=== PATIENT | female | born 1950 | race Caucasian/White ===

== ENCOUNTER → 2023-12-23 09:50 | Outpatient (REF) | payer MEDICARE, OTHER, SELFPAY | LOC: DHVS 09:50 | PROVIDERS: ATTENDING PHYSICIAN Surgery Vascular Surgery; FAMILY PHYSICIAN Family Medicine | DX: I73.9 Peripheral vascular disease, unspecified (principal); I65.23 Occlusion and stenosis of bilateral carotid arteries | CPT/HCPCS: 93880; 93922; 93925 ==

== ENCOUNTER 2024-08-17 19:08 | Inpatient (IN) | payer MEDICARE, OTHER, SELFPAY ==
[2024-08-17] VITALS (7 sets, daily range): BP systolic 112–144; BP diastolic 59–84; BMI 17.4
--- NOTE | 2024-08-17 14:57 | ED.GENMED ---
History of Present Illness
General
Chief Complaint: Cardiac Symptoms
Time Seen by Provider: 08/17/24 14:57
History of Present Illness
History of Present Illness:
TIME OF INITIAL ENCOUNTER: 3 PM
HPI: The patient was sent here by her [facility] senior support analyst, Dr. Liang for evaluation of bypass with Dr. Crow or complex PCI with Dr. Liang. She had a shoulder x-ray a couple of months ago which showed a nodule for which a bronchoscopy was
recommended. The primary wanted her to have a cardiology evaluation before the bronchoscopy. 1 month ago she had coronary catheterization at [facility] with Dr. Durham where she was found to have significant coronary disease. She has been having
upper back tightness but not necessarily exertional in nature. She was given nitroglycerin last month when she had the cath and when she takes it for the upper back tightness the pain immediately goes away. She has not been having chest pain,
diaphoresis, or shortness of breath.
EXAM:
GENERAL: Well appearing in no distress
HEENT: Moist oral mucosa
CARDIOVASCULAR: No murmurs, normal heart rate, regular rhythm, No chest wall tenderness
PULMONARY: No respiratory distress, breath sounds are clear and equal
ABDOMEN: Soft with no peritoneal signs, no tenderness
NEUROLOGIC: Excellent strength all extremities, no coordination deficits
PSYCHIATRIC: Appropriate mental status, normal insight and judgement
EXTREMITIES: Nontender, no edema, moves all extremities equally
SKIN: No rash, no lesions
NUMBER AND COMPLEXITY OF PROBLEMS ADDRESSED AT THE ENCOUNTER
� Chronic conditions affecting care: High blood pressure, hypercholesterolemia, former smoker, family history of early coronary disease, peripheral artery disease
� Acute Exacerbation and/or Progression of Chronic Illness: This is an acute problem
� Differential Diagnosis includes: Progression of CAD, musculoskeletal back pain
AMOUNT AND/OR COMPLEXITY OF DATA TO BE REVIEWED AND ANALYZED
� I performed an independent evaluation of and my interpretation is:
EKG: Sinus 71, normal axis, T wave inversion is now slightly more prominent compared to EKG from 2020 now extending to V6
CT:
X-rays: Mild cardiomegaly noted on chest x-ray
Laboratory Studies: Hemoglobin 1.5, troponin 0.161
Other:
� Review of other/old records: I reviewed records. The patient was taken to the OR in [address] Conteh for severe debilitating right lower extremity claudication and was stented
� Clinical information was obtained by an independent historian: I spoke to the at bedside
� Prescriptions/Medications Considered but not given:
� Further testing considered but not performed:
RISK OF COMPLICATIONS AND/OR MORBIDITY OR MORTALITY OF PATIENT MANAGEMENT
� Social determinants of health affecting care: Lives at home
� Discussion with other providers: I discussed case with Dr. Liang. He recommends aspirin/heparin/Crow consult/DCA consult/echo.
� Escalation of care including admission/observation vs risk of discharge considered: Patient was sent here for admission by Dr. Liang to the hospitalist service due to diffuse CAD which will likely need either bypass or complex
PCI.
ANY OTHER UPDATES:
The patient has remained comfortable in the Emergency Department
Phy Exam
Physical Exam
Physical Exam:
See HPI
Course
Orders/Labs/Results
Orders:
Orders
08/17/24 Breakfast
Cholesterol Lowering
At Your Request: Full Participation
Cholesterol Lowering: Sodium, 2 Gram
08/17/24 14:36
Electrocardiogram (*1) Urgent
Reason for Study: Chest Pain
EKG- Treatment ONCE
08/17/24 15:09
CR Chest - 2 Views Urgent
Comment:
Reason For Exam: upper back pain; pre-CABG; nodule
08/17/24 15:50
Complete Blood Count/With Diff Urgent
Comprehensive Metabolic Panel Urgent
PTT Urgent
Prothrombin Time Urgent
Troponin I Urgent
08/17/24 17:28
Aspirin 325 mg PO NOW STA
Heparin 3,200 units IV NOW STA
08/17/24 17:[address] Non Medication Order As Directed
Physician Order: PTT 6 hours after initial start of Heparin infusion
Above order entered?: Yes
08/17/24 17:30
Heparin [id number] Units/250 ml 25,000 units in 250 ml IV PER PROTOCOL
Weight to be used for heparin protocol in kilograms (kg):: 52.6
Protocol:: Cardiac Tx/Acute Coronary
PTT Goal Range to be used:: PTT 73 to 111 seconds
Order type:: Initial
INITIAL Infusion Dose (UNITS/KG/hr) & then follow protocol:: 12 units/kg/hr
Infusion Dose in UNITS/hr & then follow protocol (UNITS/hr):: 650
INFUSION RATE in mL/hr & then follow protocol (mL/hr):: 6.5
PTT less than or equal to 64 seconds:: Increase rate by 200 units/hr (+ 2 mL/hr)
PTT 64.1 to 72.9 seconds:: Increase rate by 100 units/hr (+ 1 mL/hr)
PTT 73 to 111 seconds:: Target Range. No change in rate.
PTT 111.1 to 130.9 seconds:: Decrease rate by 100 units/hr (- 1 mL/hr)
PTT 131 to 199.9 seconds:: HOLD for 1 hr. Then decrease rate by 200 units/hr (- 2 mL/hr)
PTT greater than or equal to 200 seconds:: HOLD for 2 hrs & Notify Provider. Then decrease by 200 units/hr (-
2 mL/hr)
Lab follow-up:: Each change, PTT q6h until 2 consecutive are therapeutic. Then PTT
daily.
08/17/24 18:04
Heparin [id number] Units/250 ml 25,000 units in 250 ml .ROUTE .STK-MED
08/17/24 18:05
Admit/Transfer Patient As Directed
Co-Sign Provider:
Level of Care: Inpatient admission
Assign to:: IVU
Physician / Group: Tabatha
Diagnosis: CAD
Reason for Hospitalization: heparin drip, cardiac cath
Expected length of stay greater than two midnights?: Yes
ELOS- Estimated Length of Stay in days: 3
I certify the patient meets the requirements for IP care: Yes
PRN Pain Medication Management As Directed
May give lesser potent ordered pain med per pt: Yes
preference::
Protocol:: Medication orders for pain may be administered in a
manner that supports deferring to patient preference
when the pt is:
- Requesting an ordered lesser potent pain medication.
Least to most potent pain medications are defined
as: acetaminophen < NSAID < tramadol < opioids
(morphine, oxycodone, hydromorphone).
- Requesting a lesser dose of the same medication IF
ORDERED.
- Requesting a less intrusive route of administration
if both routes are prescribed by the provider (PO <
IV).
08/17/24 18:07
Code Status As Directed
Resuscitation Status: Full Code
08/17/24 21:34
Acetaminophen [Tylenol] 650 mg PO Q4HPRN PRN
Ondansetron Injectable [Zofran] 4 mg IV Q6HPRN PRN
08/17/24 21:34
ECHO 2D MMode Doppler w Definity [Echo 2D/M Color Dop w Definity] Routine
Reason for Exam: CAD with elevated troponin
CARDIOLOGY CONSULT Routine
Consulting Provider: Rob Bond
Was physician already notified: Yes
Heparin Protocol- PTT Orders As Directed
PTT per Heparin protocol: -Obtain CBC and baseline PTT - if not already collected.
-Obtain PTT 6 hours from start of infusion. Then, every 6 hours until 2 consecutive
PTT's are therapeutic. Then, PTT Daily.
-With each rate change, obtain PTT every 6 hours until 2 consecutive PTT's are
therapeutic. Then, PTT Daily.
Activity As Directed
Activity Level: Out of Bed-Early Mobility
With Assistance
Hemetest Stools As Directed
Comment: Notify Physician of any positive results; May Stop if Negative x 3
Notify MD As Directed
Notify physician if: PTT is greater than or equal to 200.
Obtain Records As Directed
Dates of Information to be Released: 2024
Type of Information Requested: ECG/Cardiology Results
If Other, list type of info requested: Cardiac Cath
Obtain Records from: [facility]
Vital Signs As Directed
Frequency: Per unit guidelines
Weight As Directed
Frequency: Daily
08/17/24 22:00
Troponin I Q6H
08/18/24 04:00
Troponin I Q6H
08/18/24 Breakfast
NPO
Allow oral meds: Yes
Allow clear liquids: 4hrs prior to procedure
NPO with Ice Chips: Yes
Comment: may have unrestricted clear liquid up to 4 hrs prior to scheduled procedure
Basic Metabolic Panel IN AM
Complete Blood Count/No Diff IN AM
Hgba1c [Glycohemoglobin (HgbA1c)] IN AM
Lipid Profile [Cardiovascular Evaluation] IN AM
Magnesium IN AM
Vitamin B12 IN AM
08/18/24 08:00
Aspirin Chewable [Low Strength Aspirin] 81 mg PO DAILY
ISOSORBIDE MONOnitrate ER [Imdur (Extended Release)] 30 mg PO DAILY
Metoprolol Xl [Toprol Xl] 100 mg PO DAILY
08/18/24 10:00
Troponin I Q6H
08/18/24 18:00
Atorvastatin [Lipitor] 20 mg PO QPM
08/19/24 06:00
Complete Blood Count/No Diff Q2D
Comment: notify provider: Platelet count < 130,000 or decrease by 50% from baseline
08/21/24 06:00
Complete Blood Count/No Diff Q2D
Comment: notify provider: Platelet count < 130,000 or decrease by 50% from baseline
08/23/24 06:00
Complete Blood Count/No Diff Q2D
Comment: notify provider: Platelet count < 130,000 or decrease by 50% from baseline
08/25/24 06:00
Complete Blood Count/No Diff Q2D
Comment: notify provider: Platelet count < 130,000 or decrease by 50% from baseline
08/27/24 06:00
Complete Blood Count/No Diff Q2D
Comment: notify provider: Platelet count < 130,000 or decrease by 50% from baseline
08/29/24 06:00
Complete Blood Count/No Diff Q2D
Comment: notify provider: Platelet count < 130,000 or decrease by 50% from baseline
08/31/24 06:00
Complete Blood Count/No Diff Q2D
Comment: notify provider: Platelet count < 130,000 or decrease by 50% from baseline
09/02/24 06:00
Complete Blood Count/No Diff Q2D
Comment: notify provider: Platelet count < 130,000 or decrease by 50% from baseline
Abnormal Lab Results
08/17/24
15:50
RBC 3.58 L 10^6/uL
(4.20-5.40)
Hgb 11.5 L g/dL
(12.0-16.0)
Hct 33.4 L %
(37.0-47.0)
MCH 32.1 H pg
(27.0-31.0)
MPV 11.3 H fL
(7.4-10.4)
Absolute Monos (auto) 0.7 H 10^3/uL
(0.1-0.6)
Glucose 112 H mg/dl
(70-99)
Troponin I 0.161 H* ng/ml
08/17/24 15:50
08/17/24 15:50
Vital Signs
Initial and Last Documented VS:
Initial Vital Signs
Temp Pulse Resp BP Pulse Ox
36.8 C 80 20 144/76 99
08/17/24 14:32 08/17/24 14:32 08/17/24 14:32 08/17/24 14:32 08/17/24 14:32
Last Documented Vital Signs
Temp Pulse Resp BP Pulse Ox
36.4 C 84 18 136/62 99
08/17/24 21:42 08/17/24 21:45 08/17/24 21:42 08/17/24 21:42 08/17/24 21:42
*Critical Care Note
Total Time (30-74mins, 75-104mins- exclusive of procedures): Not Applicable
ED Attending Note
-
Portions of this chart may have been created with voice recognition software.� Occasional wrong word or��sound alike� substitutions may have occurred due to the inherent limitations of voice recognition software.
Discharge Plan
Departure
Patient Disposition: Admit
Presentation/result/management discussed w/ accepting MD/DO: Hospitalist
Discharge Problem:
Acute coronary syndrome
Interventions
Interventions:
*Risk Screen - Suicide Last Done: 08/17/24 14:32
*General Assessment Last Done: 08/17/24 14:32
*Neglect/Abuse Screening Last Done: 08/17/24 14:32
*ED- Fall Risk Assessment Last Done: 08/17/24 18:18
*ED COVID-19 Vaccine History Last Done: 08/17/24 18:18
*Nursing Disposition Last Done: 08/17/24 21:39
ED- Pulmonary Assessment Last Done: 08/17/24 15:45
ED- Cardiac Assessment Last Done: 08/17/24 15:45
Discharge Date and Time
Discharge Date/Time: 08/17/24 21:40
[2024-08-17 16:05] LABS: % Basophils 0.3 % (0-2); % Eosinophils 0.3 % (0-6); % Immature Granulocytes 0.2 % (0-0.5); % Lymphocytes 30.8 % (20.5-51.1); % Monocytes 8.3 % (1.7-9.3); % Neutrophils 60.1 % (42.2-75.2); Absolute Lymphocytes 2.7 10^3/uL (1.2-3.4); Absolute Monocytes 0.7 10^3/uL (0.1-0.6); Absolute Neutrophils 5.3 10^3/uL (1.4-6.5); Hematocrit 33.4 % (37.0-47.0); Hemoglobin 11.5 g/dL (12.0-16.0); Mean Corp Hgb Conc. 34.4 g/dL (33.0-37.0); Mean Corpuscular Hgb 32.1 pg (27.0-31.0); Mean Corpuscular Volume 93.3 fL (81.0-99.0); Mean Platelet Volume 11.3 fL (7.4-10.4); Nucleated Red Blood Cells % 0 %; Platelet Count 246 10^3/uL (130-400); Red Blood Cell Count 3.58 10^6/uL (4.20-5.40); Red Cell Dist. Width 13.2 % (11.5-14.5); White Blood Cell Count 8.8 10^3/uL (4.8-10.8)
[2024-08-17 16:16] LABS: INR 1.05
[2024-08-17 16:17] LABS: APTT 27.3 Sec (23.4-35.0)
[2024-08-17 16:19] LABS: ALT (SGPT) 20 U/L (0-35); AST (SGOT) 25 U/L (14-36); Albumin 4.5 g/dl (3.5-5.0); Alkaline Phosphatase 68 U/L (38-126); Blood Urea Nitrogen 9 mg/dl (7-17); Calcium 10.1 mg/dl (8.4-10.2); Carbon Dioxide 22 mmol/L (22-30); Chloride 103 mmol/L (98-107); Glucose 112 mg/dl (70-99); Potassium 4.4 mmol/L (3.5-5.1); Sodium 136 mmol/L (135-145); Total Bilirubin 1.2 mg/dl (0.2-1.3); Total Protein 6.9 g/dl (6.3-8.2); eGFR > 60.00
[2024-08-17 16:33] LABS: Troponin I 0.161 ng/ml
--- NOTE | 2024-08-17 18:08 | W.PN.UPDATE ---
Update Note
Progress Note Update
I saw and examined the patient.
The EMMA Hannah's note was reviewed and I agree with the note.
Comment: 74 y/o F, hx of HTN, HLD, former smoker, hx of PAD referred from [facility] Cardiology for CABG vs complex PCI. Patient has had L shoulder pain pain - which led to finding a pulm nodule and bronch s/p biopsy (which was nondiagnostic). Her pre-op
cardiology evaluation revealed abnormal EKG and Cardiac cath showing significant coronary disease. patient persisting with now back pain. referred to for intervention. Currently pain free and no other complaints.
Exam:
GENERAL: Well appearing in no distress
HEENT: Moist oral mucosa
CARDIOVASCULAR: No murmurs, normal heart rate, regular rhythm, No chest wall tenderness
PULMONARY: No respiratory distress, breath sounds are clear and equal
ABDOMEN: Soft with no peritoneal signs, no tenderness
NEUROLOGIC: Excellent strength all extremities, no coordination deficits
PSYCHIATRIC: Appropriate mental status, normal insight and judgement
EXTREMITIES: Nontender, no edema, moves all extremities equally
SKIN: No rash, no lesions
Assessment:
severe CAD with elevated troponin
family history of early coronary disease
- recent Cath at [facility] 1 month ago - obtain records
- start IV heparin drip
- continue aspirin/Statin. holding Plavix
- continue Imdur/BB
- DCA cards consult
- NPO p MN for possible PCI
- for now, trend trops
- eventual CTS consult
Essential HTN
- continue BP meds
hypercholesterolemia
- continue statin
peripheral artery disease
- continue aspirin/Statin. holding Plavix
DVT ppx: IV heparin
Code: Full
75 minutes
[2024-08-17] MEDS: ASPIRIN 325 MG PO (18:11)
[2024-08-17] MEDS: HEPARIN 3200 UNITS IV (18:16)
[2024-08-17] MEDS: HEPARIN 25000 UNITS/250 ML IV (18:17)
--- NOTE | 2024-08-17 18:17 | HPS.HSE ---
Family Physician
-
Family Physician: Fran Del Cid
Chief Complaint
-
Abnormal Cardiac Cath
History of Present Illness
Patient is a 74 y/o female past medical history of peripheral arterial disease s/p right lower extremity stent, hypertension, or hyperlipidemia who presents with abnormal cardiac cath. Patient was noted to have a pulmonary nodule earlier this
early. Prior to the bronchoscopy she required cardiac clearance which involved a cardiac catheterization. The cardiac catheterization revealed severe three vessel disease. Patient reports intermittent back ache since the cardiac cath. She denies
any chest pain or shortness of breath. She had an appointment with cardiology today who referred her to [facility] for admission and further cardiac work-up.
Medical History
Past Medical History
Past Medical History: Reports Other
Additional Past Medical History:
Peripheral Arterial Disease s/p RLE Stent
Coronary Artery Disease
Essential Hypertension
Hyperlipidemia
Past Surgical History: Reports Other
Additional Past Surgical History:
Right Lower Extremity Stent
Cholecystectomy
Hysterectomy
Social History
Tobacco: Former Smoker (Quit in 2005)
Alcohol: Occasional
Family History
Family History: Not pertinent
Allergies / Home Medications
Allergies reflects when Allergies were last updated in [employer].
Home Medications with original date entered in [employer]
Allergy/Medication List:
Allergies
Allergy/AdvReac Type Severity Reaction Status Date / Time
No Known Allergies Allergy Verified 08/17/24 14:35
Home Medications
albuterol sulfate 90 mcg/actuation aerosol inhaler (Ventolin HFA) 2 puff inhalation PRN PRN wheeze 04/06/21
atorvastatin 20 mg tablet 20 mg PO QPM 04/06/21
clopidogrel 75 mg tablet 75 mg PO HS 04/06/21
aspirin 81 mg chewable tablet 81 mg PO DAILY #90 tabs 04/12/21
cyclosporine 0.1 %-chondroitin sulfate A sodium 0.25 % eye drops 1 drp ophthalmic (eye) DAILY 08/17/24
isosorbide mononitrate 30 mg tablet,extended release 24 hr 30 mg PO DAILY 08/17/24
metoprolol succinate 200 mg tablet,extended release 24 hr 200 mg PO QPM 08/17/24
prednisolone acetate 1 % eye drops,suspension 1 drp LEFT EYE DAILY 08/17/24
therapeutic multivitamin 1 tab PO DAILY 08/17/24
Review of Systems
-
A 12 point ROS was completed and negative except as noted: Yes
Constitutional: Denies Fever
Respiratory: Denies Trouble Breathing
Cardiac: Denies Chest Pain
Physical Exam
Vital Signs
Vital Signs
Temp Pulse Resp BP Pulse Ox
98.3 F 76 19 119/59 99
08/17/24 14:32 08/17/24 16:20 08/17/24 16:20 08/17/24 16:00 08/17/24 16:20
Physical Exam
General: Comfortable and Conversant
HEENT: Anicteric and Moist mucous membranes
Respiratory: Clear and Non Labored Respirations
Cardiac: S1/S2 and Regular Rhythm
GI: Soft and Non Tender
Rectal: Deferred by Provider
Musculoskeletal: No Clubbing, No Cyanosis and No Edema
Skin: Warm and Dry
Neuro: Awake, Alert, Oriented and Nonfocal/grossly intact
Psych: Calm
Laboratory Results
-
08/17/24 15:50
08/17/24 15:50
Laboratory Results
PT 14.0 Sec (11.4-14.6) 08/17/24 15:50
INR 1.05 08/17/24 15:50
APTT 27.3 Sec (23.4-35.0) 08/17/24 15:50
Total Bilirubin 1.2 mg/dl (0.2-1.3) 08/17/24 15:50
AST 25 U/L (14-36) 08/17/24 15:50
ALT 20 U/L (0-35) 08/17/24 15:50
Alkaline Phosphatase 68 U/L (38-126) 08/17/24 15:50
Troponin I 0.161 ng/ml H* 08/17/24 15:50
Data Reviewed
-
Lab Data: Labs Reviewed by me
Old Records: Requested
Impression/Plan
-
Coronary Artery Disease with Elevated Troponin
-Notes indicate prior cardiac cath revealed severe 3 vessel disease
-Consult Cardiology
-Continue heparin drip
-Continue aspirin
-Hold Plavix
-Continue isosorbide mononitrate
Essential Hypertension
-Per scanned notes plan to decrease metoprolol and resume amlodipine
-Continue metoprolol succinate 100mg Daily
-Hold amlodipine as BP is running on the low side
Hyperlipidemia
-Continue atorvastatin
Hx PAD s/p RLE Stent
DVT proph: Heparin drip
Code Status: Full Code
--- NOTE | 2024-08-17 22:08 | PTCARENOTE ---
received the patient from the ED. AAOx3. denies any chest pain/sob at this time. patient states her chest pain is middle upper back pain, intermittently. educated patient to inform RN with any new pain overnight. SR on tele 80s. bp stable. heparin
gtt infusing per protocol. independent in the room. reviewed plan of care and verbalized understanding. NPO at midnight. call graham within reach.
[2024-08-17 23:37] LABS: Troponin I 0.141 ng/ml
[2024-08-18] VITALS (12 sets, daily range): BP systolic 93–128; BP diastolic 46–76; BMI 17.3
[2024-08-18 05:28] LABS: Hematocrit 33.6 % (37.0-47.0); Hemoglobin 11.4 g/dL (12.0-16.0); Mean Corp Hgb Conc. 33.9 g/dL (33.0-37.0); Mean Corpuscular Hgb 31.9 pg (27.0-31.0); Mean Corpuscular Volume 94.1 fL (81.0-99.0); Mean Platelet Volume 11.1 fL (7.4-10.4); Platelet Count 232 10^3/uL (130-400); Red Blood Cell Count 3.57 10^6/uL (4.20-5.40); Red Cell Dist. Width 13.2 % (11.5-14.5); White Blood Cell Count 7.5 10^3/uL (4.8-10.8)
[2024-08-18 05:40] LABS: APTT 40.7 Sec (23.4-35.0)
[2024-08-18 05:54] LABS: Blood Urea Nitrogen 10 mg/dl (7-17); Calcium 9.9 mg/dl (8.4-10.2); Carbon Dioxide 25 mmol/L (22-30); Chloride 105 mmol/L (98-107); Estimated Creatinine Clearance 65 ml/min; Glucose 104 mg/dl (70-99); HDL Cholesterol 84 mg/dl; LDL Cholesterol, Calculated 53 mg/dl; Magnesium 1.8 mg/dl (1.6-2.3); Potassium 4.2 mmol/L (3.5-5.1); Sodium 136 mmol/L (135-145); Total Cholesterol 152 mg/dl (50-199); Triglyceride 76 mg/dl (10-149); Very Low Density Lipoprotein 15 mg/dl (0-30); eGFR > 60.00
[2024-08-18 06:16] LABS: Troponin I 0.155 ng/ml
[2024-08-18] MEDS: TYLENOL 650 MG PO (06:24)
[2024-08-18 06:44] LABS: Hepatitis C Antibody Negative (Negative)
[2024-08-18 06:46] LABS: Vitamin B12 217 pg/ml (239-931)
[2024-08-18] MEDS: TOPROL XL 100 MG PO (07:46)
[2024-08-18] MEDS: LOW STRENGTH ASPIRIN 81 MG PO (07:46)
[2024-08-18] MEDS: IMDUR (EXTENDED RELEASE) 30 MG PO (07:46)
--- NOTE | 2024-08-18 08:17 | CON.CAR ---
Addendum entered and electronically signed by Rob Bond MD 08/18/24 11:12:
I saw and examined the patient.
The WRAPPER CASHIER or PA's note was reviewed and I agree with the note.
Comment: General: Well developed, well nourished in NAD.
Neck: Supple, no JVD, HJR, carotids +2 B/L, no bruits bilaterally.
Heart: Non displaced PMI, RRR, no murmurs, No S3, S4, no rubs.
Lungs: Scattered rhonchi throughout
Extremities: No clubbing, cyanosis or edema bilaterally.
Neuro: Grossly nonfocal, awake, alert and oriented x3.
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 She underwent workup which revealed three-vessel
disease. She was lost to follow-up but presented to Dr. Liang yesterday. She is found to have abnormal ECG and echocardiogram suggested possible LAD infarct and was transferred to [place]. She denies any chest pain or short of breath at
present time. Of note back pain was felt to be her anginal equivalent.
Plan is for bypass surgery after Plavix washout. Will check echocardiogram. Will consider repeat catheterization based on input from CT surgery and possibly done by Dr. Liang on 08/19/2024. Continue IV heparin with elevated troponins.
Original Note:
Consultation
Consultation Request
Date/Time Consultation Requested: 08/17/24
Date/Time Consultation Performed: 08/18/24
Requesting Provider: Dr. Mays
Performing Provider: Dr. oBnd
Reason for Consultation: MV CAD
Medical History
-
History of Present Illness:
Patient was seen as a new patient at [facility] office on 08/17/2024 due to history of abnormal cardiac cath and was referred to ER and is now admitted with consultation to cardiology. Patient used to work at [employer]. She had a shoulder injury prompting an
x-ray that showed a pulmonary nodule. She then followed up with a auto tune up mechanic out of [facility] and was recommended bronchoscopy with biopsy that was performed 06/2024. Patient reports that the pathology was negative for malignancy, but that in either
the bronchoscopy report or the pathology report it was recommended that she have a repeat bronchoscopy and biopsy in about 6 months. Patient reports that as part of the workup for bronchoscopy she had an ECG that was abnormal and had cardiac cath
performed by Dr. Yves Lund at [facility]. Patient recalls being told that her cardiac cath was abnormal and that the plan was for her to complete her bronchoscopy and biopsy and following that she would have an intervention so as to not interrupt DAPT.
Patient says that it has been 1 month since her bronchoscopy and so she followed up with her PCP who arranged for her to see a critical care registered nurse at another [facility] which was performed yesterday. Cardiac cath films were reviewed by cardiology at the [facility]
office and felt to be abnormal. Patient has possible angina symptoms of upper back tightness and has been having the symptoms at rest. Patient was then referred to ER. Serial troponin in the ER was elevated, peak thus far 0.155. Patient
denies any chest or back pain at this time.
PMH:
CAD with MV CAD by cardiac cath at [facility] 06/2024
Pulmonary nodule status post bronchoscopy and biopsy was reportedly negative pathology for malignancy 06/2024
Patient reports that pathology report recommended repeat biopsy for monitoring
HTN
Hyperlipidemia
PAD s/p RLE STILL OPERATOR BRANDY and stent
Former smoker
Past Medical History
Past Medical History: Other (in HPI)
Past Surgical History: Cholecystectomy, Gynecological (hysterectomy) and Other (bronchoscopy with pulmonary nodule biopsy, RLE STILL OPERATOR BRANDY and stent)
Social History
Tobacco: Former Smoker
Alcohol: Occasional
Drug: None
Personal:
Living: With Family
Employment: Retired (used to work at [employer])
Family History
Family History: Diabetes
Allergies / Home Medications
Allergy/AdvReac Type Severity Reaction Status Date / Time
No Known Allergies Allergy Verified 08/17/24 14:35
�Medication �Instructions �Recorded �Confirmed �Type
albuterol sulfate 90 mcg/actuation 2 puff inhalation PRN PRN wheeze 04/06/21 08/17/24 History
aerosol inhaler (Ventolin HFA)
atorvastatin 20 mg tablet 20 mg PO QPM High Cholesterol 04/06/21 08/17/24 History
clopidogrel 75 mg tablet 75 mg PO HS Blood Clot 04/06/21 08/17/24 History
Prevention/Tx
aspirin 81 mg chewable tablet 81 mg PO DAILY #90 tabs 04/12/21 08/17/24 Rx
cyclosporine 0.1 %-chondroitin 1 drp ophthalmic (eye) DAILY Eye 08/17/24 08/17/24 History
sulfate A sodium 0.25 % eye drops Condition
isosorbide mononitrate 30 mg 30 mg PO DAILY Blood Pressure 08/17/24 08/17/24 History
tablet,extended release 24 hr
metoprolol succinate 200 mg 200 mg PO QPM Heart 08/17/24 08/17/24 History
tablet,extended release 24 hr Disease/Condition
prednisolone acetate 1 % eye 1 drp LEFT EYE DAILY Eye Condition 08/17/24 08/17/24 History
drops,suspension
therapeutic multivitamin 1 tab PO DAILY Supplement 08/17/24 08/17/24 History
Review of Systems
-
History Source: Patient
All other systems: Negative unless noted
Physical Exam
Vital Signs
Temp Pulse Resp BP Pulse Ox
98.2 F 84 16 111/60 97
08/18/24 06:47 08/18/24 07:46 08/18/24 06:47 08/18/24 07:46 08/18/24 06:47
GEN: NAD. AAOx3
HEENT: EOMI, MMM, wearing glasses
LUNGS: RA. No audible wheeze
CV: SR on tele. Reg, S1/S2, no murmur
ABD: soft, BS+, NT, ND
EXT: No clubbing, cyanosis, lesions or edema B/L
NEURO: Gross non-focal
SKIN: Warm, dry and pink. No rash
Lab Results
08/18/24 05:15
08/18/24 05:15
Troponin I 0.155 ng/ml H* 08/18/24 05:15
Impression / Plan
-
PCP: Dr. Fran Del Cid
Card: Dr. Liang
Impression:
Presented to ER from outpatient [facility] office with abnormal cardiac cath and back pain 08/17/2024
Elevated troponin
CAD with MV CAD by cardiac cath at [facility] 06/2024
Pulmonary nodule status post bronchoscopy and biopsy was reportedly negative pathology for malignancy 06/2024
Patient reports that pathology report recommended repeat biopsy for monitoring
HTN
Hyperlipidemia
PAD s/p RLE STILL OPERATOR BRANDY and stent
Former smoker
Echo 08/18/2024: Study pending
Plan:
-Patient was seen as a new patient at [facility] office on 08/17/2024 due to history of abnormal cardiac cath and was referred to ER and is now admitted with consultation to cardiology. Patient used to work at [employer]. She had a shoulder injury prompting
an x-ray that showed a pulmonary nodule. She then followed up with a auto tune up mechanic out of [facility] and was recommended bronchoscopy with biopsy that was performed 06/2024. Patient reports that the pathology was negative for malignancy, but that in
either the bronchoscopy report or the pathology report it was recommended that she have a repeat bronchoscopy and biopsy in about 6 months. Patient reports that as part of the workup for bronchoscopy she had an ECG that was abnormal and had cardiac
cath performed by Dr. Yves Lund at [facility]. Patient recalls being told that her cardiac cath was abnormal and that the plan was for her to complete her bronchoscopy and biopsy and following that she would have an intervention so as to not interrupt
DAPT. Patient says that it has been 1 month since her bronchoscopy and so she followed up with her PCP who arranged for her to see a critical care registered nurse at another [facility] which was performed yesterday. Cardiac cath films were reviewed by cardiology at the
[facility] office and felt to be abnormal. Patient has possible angina symptoms of upper back tightness and has been having the symptoms at rest. Patient was then referred to ER. Serial troponin in the ER was elevated, peak thus far 0.155. Patient
denies any chest or back pain at this time.
-ECG reviewed by me is sinus rhythm with anterolateral T wave inversions
-Check echo, study pending
-Patient reports that she was told she may need a repeat cardiac cath and she is agreeable to this, will reach out to cardiology at [facility] to try and determine timing.
-Trend troponin to peak
-LDL 53 and outpatient dose of atorvastatin 20 mg daily has been continued
-Patient was started on a heparin gtt on admission
-Patient has been taking DAPT with aspirin and Plavix since her bronchoscopy was completed. Last dose of Plavix was 08/17/2024. Aspirin has been continued
-Outpatient dose of Imdur ER 30 mg daily has been continued
-Outpatient dose of Toprol XL 100 mg daily has been continued
-CT surgery consult placed
[2024-08-18 09:13] LABS: Glycohemoglobin (HgbA1c) 5.4 % (4.0-5.6)
--- NOTE | 2024-08-18 11:15 | CM ---
Chart reviewed. Patient is independent of ADLS, lives with her in a [address], [address], 0 [address]. Plan is for the patient to return home with CT Transitional RN. CM to follow
[2024-08-18 12:17] LABS: APTT 54.7 Sec (23.4-35.0)
[2024-08-18 12:25] LABS: Troponin I 0.243 ng/ml
--- NOTE | 2024-08-18 12:28 | CONSULT.CT ---
Consultation
-
Date/Time Consultation Requested: 08/18 1129
Date/Time Consultation Performed: 08/18 1229
Requesting Provider: Juarez GIRALDO
Performing Provider: France Crow MD
Reason for Consultation: CABG eval
Patient History
Physicians
Family Physician: Fran Del Cid
Outpatient Scada Technician: Dr. Liang
Inpatient Scada Technician: Garth / ABIOLA
History of Present Illness
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 She recently was at
[facility] with a shoulder injury that prompted a x-ray that showed a pulmonary nodule. She follow-up with a fringing machine operator who recommended a bronchoscopy with a biopsy that was performed in June 2024. She reports that the biopsy was
negative for malignancy. As a workup for the bronchoscopy patient had an EKG that was abnormal which prompted a cardiac catheterization from Dr. Lund. The plan was for her to complete her biopsy/bronchoscopy and then plan for intervention so
there would be no interruption in her DAPT.
Patient has been complaining of possible angina symptoms which include upper back tightness at rest and with activity. The cath films were reviewed by the cardiology group at [facility] office and was felt to be abnormal. Therefore due to these symptoms
she was sent to the [facility] emergency room. Upon arrival troponins were found to be elevated and patient was admitted for further workup. CT surgery was consulted for CABG evaluation.
TTE on 08/18
Normal left ventricular chamber size. Normal left ventricular wall thickness.
Moderately reduced left ventricular systolic function. There is mid anteroseptal, mid septal, mid inferior and apical akinesis. Left ventricular ejection fraction is 30-35% visually. Stage I diastolic dysfunction suggestive of abnormal
relaxation.
Past Medical History
Past Medical History: CAD, HTN and Hypercholesterolemia
PAD with RLE STONE SETTER APPRENTICE and stent
Pulmonary Nodule
Left carotid stenosis
Past Surgical History
Past Surgical History: Other
Dental History
Cholecystectomy, Gynecological (hysterectomy) and Other (bronchoscopy with pulmonary nodule biopsy, RLE STONE SETTER APPRENTICE and stent
Social History
Alcohol: Occasional
Drug: None
Tobacco: Former Smoker
Personal:
Living: With Spouse
Employment: Retired (Use to work at [employer])
Allergies
Allergy/AdvReac Type Severity Reaction Status Date / Time
No Known Allergies Allergy Verified 08/17/24 14:35
Home Medications
�Medication �Instructions �Recorded �Confirmed �Type
albuterol sulfate 90 mcg/actuation 2 puff inhalation PRN PRN wheeze 04/06/21 08/17/24 History
aerosol inhaler (Ventolin HFA)
atorvastatin 20 mg tablet 20 mg PO QPM High Cholesterol 04/06/21 08/17/24 History
clopidogrel 75 mg tablet 75 mg PO HS Blood Clot 04/06/21 08/17/24 History
Prevention/Tx
aspirin 81 mg chewable tablet 81 mg PO DAILY #90 tabs 04/12/21 08/17/24 Rx
cyclosporine 0.1 %-chondroitin 1 drp ophthalmic (eye) DAILY Eye 08/17/24 08/17/24 History
sulfate A sodium 0.25 % eye drops Condition
isosorbide mononitrate 30 mg 30 mg PO DAILY Blood Pressure 08/17/24 08/17/24 History
tablet,extended release 24 hr
metoprolol succinate 200 mg 200 mg PO QPM Heart 08/17/24 08/17/24 History
tablet,extended release 24 hr Disease/Condition
prednisolone acetate 1 % eye 1 drp LEFT EYE DAILY Eye Condition 08/17/24 08/17/24 History
drops,suspension
therapeutic multivitamin 1 tab PO DAILY Supplement 08/17/24 08/17/24 History
Review of Systems
-
History Source: Patient
General: Reports No Symptoms
HEENT: Reports No Symptoms
Respiratory: Reports No Symptoms
Cardiac: Reports Chest Pain
Abdomen/GI: Reports No Symptoms
: Reports No Symptoms
Musculoskeletal: Reports No Symptoms
Skin: Reports No Symptoms
Neurological: Reports No Symptoms
Vascular: Reports No Symptoms
Physical Exam
Vital Signs
Temp 97.8 F 08/18/24 11:09
Temp route: Oral 08/18/24 11:09
Pulse 86 08/18/24 08:45
Rhythm: Normal sinus rhythm 08/18/24 08:23
Resp Rate 12 08/18/24 11:09
Blood pressure 111/60 08/18/24 07:46
Blood pressure extremity used: Right upper arm 08/18/24 05:19
Position: Lying 08/18/24 05:19
MAP (cuff-Mikhail Monitor) 75 08/18/24 06:47
SaO2 98 08/18/24 11:09
Oxygen Mode of Delivery Room air 08/18/24 11:09
Can the patient verbally communicate their pain? Yes 08/18/24 08:23
Pain scale ratin 08/18/24 06:24
Actual Weight 48.6 kg 08/18/24 06:00
Body Mass Index (BMI) 17.3 08/18/24 06:00
Labs
08/18/24 05:15
08/18/24 05:15
PT 14.0 Sec (11.4-14.6) 08/17/24 15:50
APTT 54.7 Sec (23.4-35.0) H 08/18/24 11:38
Hemoglobin A1c 5.4 % (4.0-5.6) 08/18/24 05:15
Troponin I 0.243 ng/ml H* D 08/18/24 11:38
Exam
General: Well Developed and Comfortable
HEENT: Normocephalic
Respiratory: Clear
Cardiac: S1/S2
GI: Soft and Non Tender
Rectal: Deferred by Provider
Skin: Warm and Dry
Neuro: AO x 3
Lymph: No Lymphadenopathy
Psych: Calm
Assessment / Plan
-
74-year-old female with past medical history listed above presented to [facility] after a bronchoscopy and abnormal left heart cath. CT surgery was consulted for eventual CABG.
#CAD
- Patient's case will be discussed with attending physician. Further details regarding surgical timing intervention will be determined after attending physicians full evaluation
- Routine preoperative cardiothoracic surgery orders will be initiated.
- STS risk stratification score will be calculated after preoperative testing is complete
- Continue nitroglycerin and heparin gtt per cardiology
- Repeat cath per cardiology
- Discontinue Plavix (last dose 08/16)
--- NOTE | 2024-08-18 12:40 | W.PN.HOSP.TC ---
Today's Communication/Plan
-
NPO p MN if cath pursued in AM pending CT surgery eval
continue IV heparin and trend trops
Assessment / Plan
Assessment / Plan
Echo 08/18: Normal left ventricular chamber size. Normal left ventricular wall thickness.
Moderately reduced left ventricular systolic function. There is mid
anteroseptal, mid septal, mid inferior and apical akinesis. Left ventricular
ejection fraction is 30-35% visually. Stage I diastolic dysfunction suggestive
of abnormal relaxation.
Assessment:
severe CAD with elevated troponin
family history of early coronary disease
- recent Cath at [facility] 1 month ago - multi-vessel CAD
- continue IV heparin drip - requires intensive monitoring of PTTs
- continue aspirin/Statin. holding Plavix
- continue Imdur/BB
- DCA cards following
- NPO p MN for possible repeat cath pending CT surg eval
- Echo: as above
- for now, trend trops
Essential HTN
- continue BP meds
hypercholesterolemia
- continue statin
peripheral artery disease
- continue aspirin/Statin. holding Plavix
DVT ppx: IV heparin
Code: Full
Anticipated Discharge: > 48 hours
Subjective/Interval History
-
Date of Service: August 18, 2024
no chest or back pain at present
Objective Data
-
Labs:
Laboratory Results
08/18/24 08/18/24 08/18/24
05:15 11:38 18:20
WBC 7.5
Hgb 11.4 L
Hct 33.6 L
Plt Count 232
APTT 40.7 H 54.7 H Pending
Sodium 136
Potassium 4.2
Chloride 105
Carbon Dioxide 25
BUN 10
Creatinine 0.6
Glucose 104 H
Calcium 9.9
Vital Signs:
Vital Signs
Temp Pulse Resp BP Pulse Ox
97.8 F 86 12 111/60 98
08/18/24 11:09 08/18/24 08:45 08/18/24 11:09 08/18/24 07:46 08/18/24 11:09
Physical Exam
-
General: No Apparent Distress
HEENT: Normocephalic and Atraumatic
Respiratory: Negative Wheezes
Cardiac: Regular Rhythm and S1/S2
GI: Soft and Nontender
Genito-urinary: No Costovertebral Tender
Neuro: AO x 3
Psych: Calm
Data Reviewed
-
Total Time Spent with Patient (in minutes): 51
Labs: Labs Reviewed by me
[2024-08-18] MEDS: LIPITOR 20 MG PO (18:47)
--- NOTE | 2024-08-18 18:57 | PTCARENOTE ---
~3860-8631: Patient Aox4, NSR 70s-80s on RA. Patient independent in room, OOB to chair. Patient sates back pain improved with tylenol that was given on nightshift. patient NPO at this time for a possibly PCI later today. Heparin gtt infusing per
order. All needs met at this time, call graham within reach.
~[id number]: Patient no longer NPO, patient CTS consult.
~0647-0400: Patient OOB to chair, tolerating well. PTT resulted, heparin gtt titrated per order. New PTT ordered per protocol. Patient had BM, heme tested per order, heme test +. All needs met at this time, call graham within reach.
~[id number]: Labs drawn and sent, results pending. All needs met at this time. Report given to oncoming nurse.
[2024-08-18 19:16] LABS: APTT 93.2 Sec (23.4-35.0)
[2024-08-18 19:33] LABS: Troponin I 0.219 ng/ml
--- NOTE | 2024-08-18 20:59 | PTCARENOTE ---
Patient received at change of shift out of bed to the chair. NSR on telemetry. Oxygen saturation 98% on room air. Patient denies chest pain. Offers no complaints. Heparin gtt infusing at 1050 units/hr per order. Plan of care discussed with patient.
Call graham within reach. Care ongoing.
[2024-08-18] MEDS: HEPARIN 25000 UNITS/250 ML IV (22:56)
[2024-08-19] VITALS (8 sets, daily range): BP systolic 106–138; BP diastolic 54–81; BMI 17.3
[2024-08-19 02:34] LABS: Hemoglobin 11.5 g/dL (12.0-16.0); Mean Corp Hgb Conc. 33.8 g/dL (33.0-37.0); Mean Corpuscular Hgb 31.8 pg (27.0-31.0); Mean Corpuscular Volume 93.9 fL (81.0-99.0); Platelet Count 247 10^3/uL (130-400); Red Blood Cell Count 3.62 10^6/uL (4.20-5.40); Red Cell Dist. Width 13.2 % (11.5-14.5); White Blood Cell Count 8.5 10^3/uL (4.8-10.8)
[2024-08-19 02:42] LABS: INR 1.09; PT 14.4 Sec (11.4-14.6)
[2024-08-19 02:44] LABS: APTT 93.3 Sec (23.4-35.0)
[2024-08-19 03:38] LABS: ALT (SGPT) 17 U/L (0-35); AST (SGOT) 29 U/L (14-36); Albumin 4.1 g/dl (3.5-5.0); Alkaline Phosphatase 64 U/L (38-126); Blood Urea Nitrogen 10 mg/dl (7-17); Carbon Dioxide 25 mmol/L (22-30); Chloride 104 mmol/L (98-107); Direct Bilirubin 0.3 mg/dl (0.0-0.4); Estimated Creatinine Clearance 65 ml/min; Glucose 111 mg/dl (70-99); Potassium 4.1 mmol/L (3.5-5.1); Sodium 138 mmol/L (135-145); Total Bilirubin 1.1 mg/dl (0.2-1.3); Total Protein 6.6 g/dl (6.3-8.2); eGFR > 60.00
[2024-08-19] MEDS: LOW STRENGTH ASPIRIN 81 MG PO (08:01)
[2024-08-19] MEDS: TOPROL XL 100 MG PO (08:01)
[2024-08-19] MEDS: IMDUR (EXTENDED RELEASE) 30 MG PO (08:01)
--- NOTE | 2024-08-19 09:04 | W.PN.CARDCBS ---
Addendum entered and electronically signed by Conrad Ceja MD 08/19/24 09:47:
Patient seen, interviewed and examined by me.
Well-appearing, no acute distress
Regular rate and rhythm with normal S1 and S2, no S3 no S4. There is a grade 1/6 apical holosystolic murmur and no rubs. PMI is normally placed.
Lungs are clear to auscultation bilaterally without wheezes rales or rhonchi.
Abdomen soft nontender nondistended with normoactive bowel sounds
Extremities show trace pretibial edema bilaterally no clubbing or cyanosis.
Neurologic exam is grossly nonfocal.
Complex case
She has infarct related cardiomyopathy with HFrEF and unstable coronary syndrome with acute non-ST segment elevation myocardial infarction with troponin that apparently peaked at the time she was asymptomatic
With intravenous heparin she has remained asymptomatic and troponin has trended down
CABG is tentatively planned (CT Surgery to decide timing), but awaiting pulmonary eval re h/o pulm nodule and adequate Plavix washout (last dose August 16, 2024)
In the meantime, will plan to continue antianginal treatment
Maintain heparin infusion
Continue aspirin 81 mg daily
Continue beta-jay, Toprol 100 mg daily
Continue nitrate, Imdur 30 mg daily
Have not initiated MARTIN/ARB/ARNI/aldosterone antagonist with surgery anticipated
Additionally, maintain atorvastatin with dose recently increased to 40 mg daily
Discussed with patient and her , all of their questions answered.
Also discussed with CT surgery.
Total time spent today was 55 minutes in preparing to see the patient, seeing the patient and coordination of care. This included review of recent laboratory evaluations, cardiact testing, imaging studies, primary care rtecords, specialty
consultations, hospital records, as well as personally interviewing and examining the patient, which included discussion of their tests, review/ordering medications, and communicating with other healthcare professionals and also treatment planning
as well as counseling.
Original Note:
Today's Communication / Plan
-
Cont Heparin gtt
Last dose of Plavix was 08/16/24
Cont aspirin
No plans to repeat cath
CTS following for posisble CABG
Atorvastatin dose increased by me
Impression / Plan
-
PCP: Dr. Fran Del Cid
Card: Dr. Liang
Impression:
Presented to ER from outpatient [place] cardiology office with abnormal cardiac cath and back pain 08/17/2024
NSTEMI, peak Troponin 0.243
CAD with MV CAD by cardiac cath at [facility] 06/2024
Ischemic CM EF 30 to 35% by echo 08/18/2024
Pulmonary nodule status post bronchoscopy and biopsy was reportedly negative pathology for malignancy 06/2024
Patient reports that pathology report recommended repeat biopsy for monitoring
HTN
Hyperlipidemia
PAD s/p RLE CAN HANDLER and stent
Former smoker
Echo 08/18/2024: EF 30 to 35%, mid anteroseptal, mid septal, mid inferior and apical akinesis, stage I diastolic
Plan:
-Remains on heparin gtt and denies any recurrence of back pain that may have been her angina prior to admission although no symptoms for weeks prior to admission
-CT surgery following and no plans to repeat cath at this time
-Patient has been taking DAPT with aspirin and Plavix since her bronchoscopy was completed 07/20/24. Last dose of Plavix was 08/16/2024. Aspirin has been continued
-Echo report reviewed and summarized by me as above. No previous echo on file at for comparison. Will manage as ischemic CM
-Outpatient dose of Toprol XL 100 mg daily has been continued
-Will not start MARTIN/ARB/ARNI/aldosterone antagonist with surgery anticipated
-Outpatient dose of Imdur ER 30 mg daily has been continued
-Troponin was elevated 0.161 on admission and peaked at 0.243. Patient denies any CP or her typical angina which is back pain prior to admission. ECG with nonspecific changes. EF is reduced on echo.
-Trend troponin to peak
-LDL 53 and outpatient dose of atorvastatin increased to 40 mg daily
-Cardiac rehab consult to be performed post-op
HPI: Patient was seen as a new patient at [facility] office on 08/17/2024 due to history of abnormal cardiac cath and was referred to ER and is now admitted with consultation to cardiology. Patient used to work at [facility]. She had a shoulder injury
prompting an x-ray that showed a pulmonary nodule. She then followed up with a clark driver out of [facility] and was recommended bronchoscopy with biopsy that was performed 06/2024. Patient reports that the pathology was negative for malignancy, but
that in either the bronchoscopy report or the pathology report it was recommended that she have a repeat bronchoscopy and biopsy in about 6 months. Patient reports that as part of the workup for bronchoscopy she had an ECG that was abnormal and had
cardiac cath performed by Dr. Yves Lund at [facility]. Patient recalls being told that her cardiac cath was abnormal and that the plan was for her to complete her bronchoscopy and biopsy and following that she would have an intervention so as to not
interrupt DAPT. Patient says that it has been 1 month since her bronchoscopy and so she followed up with her PCP who arranged for her to see a console attendant at another group which was performed yesterday. Cardiac cath films were reviewed by
cardiology at the [facility] office and felt to be abnormal. Patient has possible angina symptoms of upper back tightness and has been having the symptoms at rest. Patient was then referred to ER. Serial troponin in the ER was elevated, peak thus far
0.155. Patient denies any chest or back pain at this time.
Progress Note - Wool Buyer
Subjective
Date of Service: August 19, 2024
No chest or back pain
Objective
Labs:
08/19/24 02:13
08/19/24 02:13
Labs
Hgb 11.5 g/dL (12.0-16.0) L 08/19/24 02:13
Hct 34.0 % (37.0-47.0) L 08/19/24 02:13
Plt Count 247 10^3/uL (130-400) 08/19/24 02:13
PT 14.4 Sec (11.4-14.6) 08/19/24 02:13
INR 1.09 08/19/24 02:13
APTT 93.3 Sec (23.4-35.0) H 08/19/24 02:13
APTT Cancelled 08/19/24 02:13
Sodium 138 mmol/L (135-145) 08/19/24 02:13
Potassium 4.1 mmol/L (3.5-5.1) 08/19/24 02:13
BUN 10 mg/dl (7-17) 08/19/24 02:13
Creatinine 0.6 mg/dL (0.6-1.0) 08/19/24 02:13
Glucose 111 mg/dl (70-99) H 08/19/24 02:13
Troponins
08/17/24 08/17/24 08/17/24
15:50 20:00 23:01
Troponin I 0.161 H* Cancelled 0.141 H*
08/18/24 08/18/24 08/18/24
05:15 11:38 18:55
Troponin I 0.155 H* 0.243 H* D 0.219 H*
Vital Signs and I&O:
Vital Signs
Temp Pulse Resp BP Pulse Ox
98 F 96 18 138/70 96
08/19/24 07:23 08/19/24 08:01 08/19/24 07:23 08/19/24 08:01 08/19/24 07:23
Vital Signs
Temp Pulse Resp BP Pulse Ox
98 F 96 18 138/70 96
08/19/24 07:23 08/19/24 08:01 08/19/24 07:23 08/19/24 08:01 08/19/24 07:23
Intake & Output
08/17/24 08/18/24 08/19/24 08/20/24
06:59 06:59 06:59 06:59
Intake Total 480 / 480 606 / 606
Balance 480 / 480 606 / 606
Physical Exam
Physical Exam
GEN: NAD. AAOx3
HEENT: MMM
LUNGS: RA. No audible wheeze
CV: SR on tele.
ABD: ND
EXT: No edema B/L
NEURO: Gross non-focal
SKIN: No rash
--- NOTE | 2024-08-19 09:05 | PN.CDI ---
CDI
- -
CDI:
Physician Documentation Request
Admit Date: 08/17/24 19:08
Dear Doctor Tabatha,
Clinical Indicators:
Height: 5 ft 6 in
Weight: 107 lbs 2.3 oz
BMI: 17.3
08/18 note, 'Initial assessment due to BMI 17.3 (underweight).'
If possible, please provide an associated diagnosis related to the abnormal BMI (< or = to 19), such as:
Underweight
Cachectic
BMI is not significant
Other, please specify
Use of terms such as suspected, likely, concern for, or probable (associated with a specific diagnosis that is being evaluated, monitored, or treated as if it exists) are acceptable and can be coded in the inpatient setting, when documented at the
time of discharge.
Thank you,
Linda Mares RN BSN
CDI Specialist
available via tiger text
Please use your independent medical judgment in providing your response.
--- NOTE | 2024-08-19 10:52 | W.PN.HOSP.TC ---
Today's Communication/Plan
-
follow pulm/cards/CT surgery recs
pre-op planning for bypass, tentative 4/3 or sooner if schedule allows
Assessment / Plan
Assessment / Plan
Echo 08/18: Normal left ventricular chamber size. Normal left ventricular wall thickness.
Moderately reduced left ventricular systolic function. There is mid
anteroseptal, mid septal, mid inferior and apical akinesis. Left ventricular
ejection fraction is 30-35% visually. Stage I diastolic dysfunction suggestive
of abnormal relaxation.
Assessment:
severe CAD with NSTEMI
family history of early coronary disease
- recent Cath at [facility] 1 month ago - multi-vessel CAD
- Echo: as above
- continue IV heparin drip - requires intensive monitoring of PTTs
- continue aspirin/Statin.
- holding Plavix (last dose 08/16). P2Y12 in AM labs.
- continue Imdur/BB
- DCA cards following
- CT following; bypass tentatively /3 or sooner if schedule allows
Right upper lobe pulmonary nodule-groundglass
- CT chest 08/18/2024: No acute disease of the chest. Moderate atherosclerosis. Right upper lobe groundglass/minimal solid about 4 mm component with cystic component opacity-1.6X 1.2 cm
- CT chest 07/31/2024: Reported 2.3X 1.1 cm groundglass nodule on the right upper lobe with 4 mm solid component. Mild paraseptal emphysema
- robotic bronchoscopy 07/31/2024: Negative cytology
- Pulm following
- PFTs for pre-op
Essential HTN
- continue BP meds
hypercholesterolemia
- continue statin
peripheral artery disease
- continue aspirin/Statin. holding Plavix
Underweight
DVT ppx: IV heparin
Code: Full
Anticipated Discharge: > 48 hours
Subjective/Interval History
-
Date of Service: August 19, 2024
resting comfortably
awaiting surgical date
Objective Data
-
Labs:
Laboratory Results
08/19/24 08/19/24
02:13 02:13
WBC 8.5
Hgb 11.5 L
Hct 34.0 L
Plt Count 247
PT 14.4
INR 1.09
APTT 93.3 H Cancelled
Sodium 138
Potassium 4.1
Chloride 104
Carbon Dioxide 25
BUN 10
Creatinine 0.6
Glucose 111 H
Calcium 10.0
Total Bilirubin 1.1
AST 29
ALT 17
Alkaline Phosphatase 64
Vital Signs:
Vital Signs
Temp Pulse Resp BP Pulse Ox
98 F 96 18 138/70 96
08/19/24 07:23 08/19/24 08:01 08/19/24 07:23 08/19/24 08:01 08/19/24 07:23
I&O
08/18/24 08/19/24 08/20/24
06:59 06:59 06:59
Intake Total 480 / 480 606 / 606
Balance 480 / 480 606 / 606
Physical Exam
-
General: No Apparent Distress
HEENT: Normocephalic
Respiratory: Negative Wheezes
Cardiac: Regular Rhythm and S1/S2
GI: Soft
Genito-urinary: No Costovertebral Tender
Neuro: AO x 3
Psych: Calm
Data Reviewed
-
Total Time Spent with Patient (in minutes): 41
Labs: Labs Reviewed by me
--- NOTE | 2024-08-19 10:54 | PTCARENOTE ---
pt is AOx3, no complaints of pain or discomfort. Heparin gtt infusing per protocol. Independent OOB. updated at bedside. Call graham within reach.
--- NOTE | 2024-08-19 11:25 | CON.PUL ---
Consultation
Consultation Request
Date/Time Consultation Requested: 08/19/2024
Date/Time Consultation Performed: 08/19/2024
Requesting Provider: Dr. Mays
Performing Provider: Dr. Andres Trevino
Reason for Consultation: Lung nodule-preop pulmonary evaluation prior CABG
Medical History
-
History of Present Illness:
74-year-old woman with history of ischemic cardiomyopathy post infarct-multivessel coronary artery disease at [facility].
Patient has a lung nodule that was incidentally found on chest x-ray, on 07/[address] Holt, subsequently underwent robotic bronchoscopy with biopsy
she was transferred to [facility] on 08/17/2024 from [facility] for CABG evaluation.
She is scheduled for coronary artery bypass during this admission still coordinating timing.
I was consulted on 08/20/2023 for evaluation of her lung nodule and preoperative pulmonary assessment.
Patient is asymptomatic at present. Patient denies any pulmonary symptoms.
She quit smoking in 2005Denies frequent respiratory infections.
-
I reviewed records from her phone: Patient underwent a PET/CT that demonstrated no significant FDG avidity.
CT chest on 07/2024 with a right upper lobe groundglass nodule 2.3 cm with 4 mm solid component.
Underwent robotic bronchoscopy 07/31/2024: Negative cytology. On pathology possible atypical cells.
Apparently she was referred to [facility] for CT surgery evaluation-it never happened since she had a cardiac event.
-
Remains asymptomatic from the pulmonary perspective.
Past Medical History
Past Medical History: Other (See assessment and plan)
Social History
Tobacco: Former Smoker (Quit in 2005)
Alcohol: Occasional
Drug: None
Living: With Family
Family History
Family History: Reviewed & Not Pertinent
Allergies / Home Medications
Allergies
Allergy/AdvReac Type Severity Reaction Status Date / Time
No Known Allergies Allergy Verified 08/17/24 14:35
Home Medications
�Medication �Instructions �Recorded �Confirmed �Last Taken �Type
albuterol sulfate 90 mcg/actuation 2 puff inhalation PRN PRN wheeze 04/06/21 08/17/24 04/10/21 History
aerosol inhaler (Ventolin HFA)
atorvastatin 20 mg tablet 20 mg PO QPM High Cholesterol 04/06/21 08/17/24 08/16/24 History
clopidogrel 75 mg tablet 75 mg PO HS Blood Clot 04/06/21 08/17/24 08/16/24 History
Prevention/Tx
aspirin 81 mg chewable tablet 81 mg PO DAILY #90 tabs 04/12/21 08/17/24 08/17/24 Rx
cyclosporine 0.1 %-chondroitin 1 drp ophthalmic (eye) DAILY Eye 08/17/24 08/17/24 08/17/24 History
sulfate A sodium 0.25 % eye drops Condition
isosorbide mononitrate 30 mg 30 mg PO DAILY Blood Pressure 08/17/24 08/17/24 08/17/24 History
tablet,extended release 24 hr
metoprolol succinate 200 mg 200 mg PO QPM Heart 08/17/24 08/17/24 08/16/24 History
tablet,extended release 24 hr Disease/Condition
prednisolone acetate 1 % eye 1 drp LEFT EYE DAILY Eye Condition 08/17/24 08/17/24 08/17/24 History
drops,suspension
therapeutic multivitamin 1 tab PO DAILY Supplement 08/17/24 08/17/24 08/17/24 History
Review of Systems
-
History Source: Patient
All other systems: Negative unless noted
Vitals / Labs / Diagnostic Testing
Vital Signs
Temp Pulse Resp BP Pulse Ox
98 F 83 18 138/70 96
08/19/24 07:23 08/19/24 11:00 08/19/24 07:23 08/19/24 08:01 08/19/24 07:23
Lab Data
08/19/24 02:13
08/19/24 02:13
Laboratory Results
08/18/24 08/18/24 08/19/24
11:38 18:55 02:13
PT 14.4
INR 1.09
APTT 54.7 H 93.2 H 93.3 H
08/19/24
02:13
PT
INR
APTT Cancelled
Diagnostic Testing:
Physical Exam
-
HEENT: Normocephalic
Cardiovascular: S1/S2
Respiratory: Clear and Non-Labored Respirations
GI: Soft and Non Distended
Neurology: Awake, Oriented and AO x 3
Skin: Warm
General: Comfortable
Assessment
-
74-year-old woman with past medical history noted. Transferred from [facility] for evaluation of CABG. On CAT scan she has a right upper lobe groundglass opacity status post robotic bronchoscopy tissue sampling at -07/31 that was
benign-atypical cells found.
We were consulted on 08/19/2024 for preop territory pulmonary assessment.
-
Right upper lobe pulmonary nodule-groundglass
CT chest 08/18/2024: No acute disease of the chest. Moderate atherosclerosis. Right upper lobe groundglass/minimal solid about 4 mm component with cystic component opacity-1.6X 1.[address] chest 07/31/2024: Reported 2.3X 1.1 cm groundglass nodule on the right upper lobe with 4 mm solid component.
Mild paraseptal emphysema
Multivessel coronary artery disease-ischemic cardiomyopathy-unstable angina
Echocardiogram 08/18/2024: Ejection fraction 30 to 35%, mid anteroseptal, mid septal and mid inferior and apical akinesis, stage I diastolic dysfunction.
-
Conditions present prior admission:
Ischemic cardiomyopathy ejection fraction 30 to 35% by echocardiogram
Multivessel coronary artery disease by cath 06/2024
Pulmonary groundglass nodule status post bronchoscopy and biopsy 07/2024
Benign. Minimal atypical cells-follows up with Dr. Yanet
Hypertension
Hyperlipidemia
Peripheral arterial disease status post right lower extremity stent
Former smoker-quit in 2005
Assessment and plan:
-
Right upper lobe lung nodule differential diagnosis includes adenocarcinoma in situ versus scarring.
As noted status post robotic bronchoscopy 07/31/2024 at [facility]-minimal atypical cells.
PET/CT reportedly showed no significant FDG avidityPlan in the outpatient setting was to evaluate CT surgery in the future versus repeating biopsy.
It is encouraging that in our CAT scan here the size of the lung nodule decreased from 2.3 to 1.6 cm. Solid component of 4 mm remains stable.
This could be evaluated at a later time in the future. She will continue to follow-up with Dr. Holt at [facility] for this.
I also discussed this with Dr. Aaron Liang primary magnet valve assembler and he agreed. He did discuss the case with Dr. Holt over the phone.
-
Mild paraseptal emphysema-patient denies shortness of breath with activity.
Denies frequent respiratory infection.
Denies any physical activity limitation.
Lung sounds are clear
Per patient report her pulmonary function testing were near normal.
Pulmonary function testing will be obtained as part of the evaluation for CABG here at [facility]. Will review.
No indication for inhalers or bronchodilators at this point.
-
May proceed with coronary artery bypass-likely this patient will be at average risk from the pulmonary perspective for any complications.
Will wait for full pulmonary function testing.
-
Will follow
-
I did have extensive discussion with patient and at the bedside. Chest CT images were reviewed. Patient records from her online access were reviewed in detail as well.
-
--- NOTE | 2024-08-19 13:04 | CM ---
Chart reviewed. Patient is independent of ADLS, lives with her in a [address], 1 SHAKEEL, 0 DME. Reviewed with patient preoperative and postoperative instructions and restrictions, along with showering guidelines. Gave patient Cardiac Surgery
Book. Patient is agreeable to a home visit by CT Transitional RN. Plan is for the patient to return home with CT Transitional RN.
[2024-08-19] MEDS: LIPITOR 40 MG PO (17:03)
[2024-08-19] MEDS: HEPARIN 25000 UNITS/250 ML IV (20:16)
--- NOTE | 2024-08-19 21:10 | PTCARENOTE ---
Patient received at change of shift out of bed to the chair. Heparin gtt infusing at 1050units/hr. Patient offers no complaints at this time. Sinus rhythm on telemetry. Oxygen saturation 96-97% on room air. Plan of care discussed. Call graham within
reach. Care ongoing.
[2024-08-20] VITALS (7 sets, daily range): BP systolic 94–122; BP diastolic 56–81; BMI 17.4
[2024-08-20 04:01] LABS: Hematocrit 32.2 % (37.0-47.0); Hemoglobin 11.1 g/dL (12.0-16.0); Mean Corp Hgb Conc. 34.5 g/dL (33.0-37.0); Mean Corpuscular Hgb 32.6 pg (27.0-31.0); Mean Corpuscular Volume 94.7 fL (81.0-99.0); Mean Platelet Volume 10.8 fL (7.4-10.4); Platelet Count 222 10^3/uL (130-400); Red Cell Dist. Width 13.2 % (11.5-14.5); White Blood Cell Count 8.1 10^3/uL (4.8-10.8)
[2024-08-20 04:12] LABS: APTT 95.4 Sec (23.4-35.0)
[2024-08-20 04:16] LABS: VerifyNow PRU 221 PRU (180-376)
[2024-08-20 05:14] LABS: Blood Urea Nitrogen 8 mg/dl (7-17); Carbon Dioxide 24 mmol/L (22-30); Chloride 105 mmol/L (98-107); Estimated Creatinine Clearance 66 ml/min; Glucose 106 mg/dl (70-99); Potassium 3.9 mmol/L (3.5-5.1); Sodium 137 mmol/L (135-145); eGFR > 60.00
--- NOTE | 2024-08-20 08:42 | W.PN.CARDCBS ---
Addendum entered and electronically signed by Dequan Douglas DO 08/20/24 17:48:
I saw and examined the patient.
The Candlemaker's note was reviewed and I agree with the note.
Comment:
Plan:
Cont Plavix washout
IV Heparin continue given multivessel CAD
Reviewed cath with pt
Cont statin
Appears euvolemic
Plan for CABG next week.
Original Note:
Today's Communication / Plan
-
Plavix on hold
Heparin gtt renewed
Impression / Plan
-
PCP: Dr. Fran Del Cid
Card: Dr. Liang
Impression:
Presented to ER from outpatient [place] cardiology office with abnormal cardiac cath and back pain 08/17/2024
NSTEMI, peak Troponin 0.243
CAD with MV CAD by cardiac cath at [facility] 06/2024
Ischemic CM EF 30 to 35% by echo 08/18/2024
Pulmonary nodule status post bronchoscopy and biopsy was reportedly negative pathology for malignancy 06/2024
Patient reports that pathology report recommended repeat biopsy for monitoring
HTN
Hyperlipidemia
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
Former smoker
Echo 08/18/2024: EF 30 to 35%, mid anteroseptal, mid septal, mid inferior and apical akinesis, stage I diastolic
Plan:
-Patient reports she was seen by the CT surgery team and CABG is scheduled for Saturday
-Remains pain-free on heparin gtt, renewed by me 08/20/2024
-Labs reviewed by me 08/20/2024 and platelet count stable 222, Hgb stable as well at 11.1
-Patient has been taking DAPT with aspirin and Plavix since her bronchoscopy was completed 07/20/24. Last dose of Plavix was 08/16/2024, P2Y12 assay was 221. Aspirin has been continued
-Echo report reviewed and summarized by me as above. No previous echo on file at for comparison. Will manage as ischemic CM
-Outpatient dose of Toprol XL 100 mg daily has been continued
-Will not start MARTIN/ARB/ARNI/aldosterone antagonist with surgery anticipated
-Outpatient dose of Imdur ER 30 mg daily has been continued
-Troponin was elevated 0.161 on admission and peaked at 0.243. Patient denies any CP or her typical angina which is back pain prior to admission. ECG with nonspecific changes. EF is reduced on echo.
-LDL 53 and outpatient dose of atorvastatin increased to 40 mg daily
-Cardiac rehab consult to be performed post-op
HPI: Patient was seen as a new patient at [facility] office on 08/17/2024 due to history of abnormal cardiac cath and was referred to ER and is now admitted with consultation to cardiology. Patient used to work at [facility]. She had a shoulder injury
prompting an x-ray that showed a pulmonary nodule. She then followed up with a control supervisor out of [facility] and was recommended bronchoscopy with biopsy that was performed 06/2024. Patient reports that the pathology was negative for malignancy, but
that in either the bronchoscopy report or the pathology report it was recommended that she have a repeat bronchoscopy and biopsy in about 6 months. Patient reports that as part of the workup for bronchoscopy she had an ECG that was abnormal and had
cardiac cath performed by Dr. Yvse Lund at [facility]. Patient recalls being told that her cardiac cath was abnormal and that the plan was for her to complete her bronchoscopy and biopsy and following that she would have an intervention so as to not
interrupt DAPT. Patient says that it has been 1 month since her bronchoscopy and so she followed up with her PCP who arranged for her to see a senior housekeeper at another [facility] which was performed yesterday. Cardiac cath films were reviewed by
cardiology at the [facility] office and felt to be abnormal. Patient has possible angina symptoms of upper back tightness and has been having the symptoms at rest. Patient was then referred to ER. Serial troponin in the ER was elevated, peak thus far
0.155. Patient denies any chest or back pain at this time.
Progress Note - Group Teacher
Subjective
Date of Service: August 20, 2024
Feels well, no CP
Objective
Labs:
08/20/24 03:47
08/20/24 03:47
Labs
Hgb 11.1 g/dL (12.0-16.0) L 08/20/24 03:47
Hct 32.2 % (37.0-47.0) L 08/20/24 03:47
Plt Count 222 10^3/uL (130-400) 08/20/24 03:47
PT 14.4 Sec (11.4-14.6) 08/19/24 02:13
INR 1.09 08/19/24 02:13
APTT Cancelled 08/20/24 06:00
Sodium 137 mmol/L (135-145) 08/20/24 03:47
Potassium 3.9 mmol/L (3.5-5.1) 08/20/24 03:47
BUN 8 mg/dl (7-17) 08/20/24 03:47
Creatinine 0.6 mg/dL (0.6-1.0) 08/20/24 03:47
Glucose 106 mg/dl (70-99) H 08/20/24 03:47
Troponins
08/17/24 08/17/24 08/17/24
15:50 20:00 23:01
Troponin I 0.161 H* Cancelled 0.141 H*
08/18/24 08/18/24 08/18/24
05:15 11:38 18:55
Troponin I 0.155 H* 0.243 H* D 0.219 H*
Vital Signs and I&O:
Vital Signs
Temp Pulse Resp BP Pulse Ox
98.2 F 64 18 118/58 98
08/20/24 08:26 08/20/24 06:00 08/20/24 08:26 08/20/24 03:35 08/20/24 08:26
Vital Signs
Temp Pulse Resp BP Pulse Ox
98.2 F 64 18 118/58 98
08/20/24 08:26 08/20/24 06:00 08/20/24 08:26 08/20/24 03:35 08/20/24 08:26
Intake & Output
08/18/24 08/19/24 08/20/24 08/21/24
06:59 06:59 06:59 06:59
Intake Total 480 / 480 606 / 606
Balance 480 / 480 606 / 606
Physical Exam
Physical Exam
GEN: NAD. AAOx3
HEENT: MMM
LUNGS: RA. No audible wheeze
CV: SR on tele.
ABD: ND
EXT: No edema B/L
NEURO: Gross non-focal
SKIN: No rash
[2024-08-20] MEDS: LOW STRENGTH ASPIRIN 81 MG PO (09:19)
[2024-08-20] MEDS: IMDUR (EXTENDED RELEASE) 30 MG PO (09:20)
[2024-08-20] MEDS: TOPROL XL 100 MG PO (09:20)
--- NOTE | 2024-08-20 11:08 | CM ---
Chart reviewed. Patient is independent of ADLS, lives with her in a 2 [address], 1 SHAKEEL, 0 DME. Patient is going for a CABG on 08/24. Patient is agreeable to CT Transitional RN. Plan is for the patient to return home with CT Transitional RN.
CM to follow
--- NOTE | 2024-08-20 11:08 | W.PN.PUL3 ---
Today's Communication / Plan
-
Continue preoperative evaluation for CABG.
May proceed from the pulmonary perspective.
Critical care team will see her postoperatively on Saturday
Assessment
-
74-year-old woman with past medical history noted. Transferred from [facility] for evaluation of CABG. On CAT scan she has a right upper lobe groundglass opacity status post robotic bronchoscopy tissue sampling at -07/31 that was
benign-atypical cells found.
We were consulted on 08/19/2024 for preop territory pulmonary assessment.
-
Right upper lobe pulmonary nodule-groundglass
CT chest 08/18/2024: No acute disease of the chest. Moderate atherosclerosis. Right upper lobe groundglass/minimal solid about 4 mm component with cystic component opacity-1.6X 1.[address] chest 07/31/2024: Reported 2.3X 1.1 cm groundglass nodule on the right upper lobe with 4 mm solid component.
Mild paraseptal emphysema
Multivessel coronary artery disease-ischemic cardiomyopathy-unstable angina
Echocardiogram 08/18/2024: Ejection fraction 30 to 35%, mid anteroseptal, mid septal and mid inferior and apical akinesis, stage I diastolic dysfunction.
-
Conditions present prior admission:
Ischemic cardiomyopathy ejection fraction 30 to 35% by echocardiogram
Multivessel coronary artery disease by cath 06/2024
Pulmonary groundglass nodule status post bronchoscopy and biopsy 07/2024
Benign. Minimal atypical cells-follows up with Dr. Holt
Hypertension
Hyperlipidemia
Peripheral arterial disease status post right lower extremity stent
Former smoker-quit in 2005
Assessment and plan:
-
Multivessel coronary artery disease scheduled for coronary artery bypass on Saturday.
-
Right upper lobe lung nodule differential diagnosis includes adenocarcinoma in situ versus scarring.
As noted status post robotic bronchoscopy 07/31/2024 at [facility]-minimal atypical cells.
PET/CT reportedly showed no significant FDG avidity -Plan in the outpatient setting was to evaluate CT surgery in the future versus repeating biopsy.
It is encouraging that in our CAT scan here the size of the lung nodule decreased from 2.3 to 1.6 cm. Solid component of 4 mm remains stable.
This will be evaluated at a later time in the future. She will continue to follow-up with Dr. Holt at [facility] for this.
I also discussed this with Dr. Aaron Liang primary marine equipment sales engineer and he agreed. He did discuss the case with Dr. Holt over the phone.
Patient agreeable with above plan.
-
Mild paraseptal emphysema-patient denies shortness of breath with activity.
Denies frequent respiratory infection.
Denies any physical activity limitation.
Lung sounds are clear
Per patient report her pulmonary function testing were near normal.
Pulmonary function testing will be obtained as part of the evaluation for CABG here at [facility]. Will review.
No indication for inhalers or bronchodilators at this point.
-
Pulmonary function testing 08/20/2024:
FEV1/FVC ratio 70%, FEV1 1.98 L - 86%, FVC 2.82 L having 95%.
T.51 L - 85%
RV 1.88 L - 88%.
RV/TLC ratio 42%
Diffusion capacity 12.08-61%.
DLCO/VA 98%.
-
No airflow obstruction. Preserved lung volumes. Moderately decreased diffusion capacity, corrects to normal when adjusted for alveolar volume.
-
May proceed with coronary artery bypass-likely this patient will be at average risk from the pulmonary perspective for any complications.
No additional recommendation from my perspective per
-
I did have extensive discussion with patient and at the bedside. Chest CT images were reviewed. Patient records from her online access were reviewed in detail as well.
-
Critical care team will follow postoperatively on Saturday.
Subjective Data
-
Date of Service:
Date of Service: August 20, 2024
Chief Complaint: Pulmonary Follow Up (Lung nodule/emphysema)
Subjective:
Denies shortness of breath
Denies coughing
Denies chest pain
Review of Systems
General: Fever (n)
Cardiopulmonary: Dyspnea (n), Dyspnea on Exertion (n) and Cough (n)
GI: Abdominal Pain (n)
Objective Data
Data Reviewed
Vital Signs / I&O / Oxygen:
Vital Signs
Temp Pulse Resp BP Pulse Ox
98.2 F 87 18 122/66 98
08/20/24 08:26 08/20/24 09:20 08/20/24 08:26 08/20/24 09:20 08/20/24 08:26
Intake and Output
08/19/24 08/20/24 08/21/24
06:59 06:59 06:59
Intake Total 606 / 606
Balance 606 / 606
SaO2 98
Physical Exam
General: Comfortable
HEENT: Normocephalic
Cardiovascular: S1-S2
Respiratory: Non-Labored Respirations
GI: Soft and Non Distended
Neurology: Awake, Alert, Oriented and No Motor Deficits
Skin: Warm
Labs/Micro/Reports
Lab Data
08/20/24 03:47
08/20/24 03:47
Laboratory Results
08/20/24 08/20/24
03:47 06:00
APTT 95.4 H Cancelled
--- NOTE | 2024-08-20 13:02 | W.PN.HOSP.TC ---
Today's Communication/Plan
-
continue current plan of care
CABG Thursday 08/24
Assessment / Plan
Assessment / Plan
Echo 08/18: Normal left ventricular chamber size. Normal left ventricular wall thickness.
Moderately reduced left ventricular systolic function. There is mid
anteroseptal, mid septal, mid inferior and apical akinesis. Left ventricular
ejection fraction is 30-35% visually. Stage I diastolic dysfunction suggestive
of abnormal relaxation.
Assessment:
severe CAD with NSTEMI
family history of early coronary disease
- recent Cath at [facility] 1 month ago - multi-vessel CAD
- Echo: as above
- continue IV heparin drip - requires intensive monitoring of PTTs
- continue aspirin/Statin.
- Last dose of Plavix was 08/16/2024, P2Y12 assay was 221
- continue Imdur/BB
- DCA cards following
- CT following; bypass scheduled for Thursday 08/24
Right upper lobe pulmonary nodule-groundglass
- CT chest 08/18/2024: No acute disease of the chest. Moderate atherosclerosis. Right upper lobe groundglass/minimal solid about 4 mm component with cystic component opacity-1.6X 1.2 cm
- CT chest 07/31/2024: Reported 2.3X 1.1 cm groundglass nodule on the right upper lobe with 4 mm solid component. Mild paraseptal emphysema
- robotic bronchoscopy 07/31/2024: Negative cytology
- Pulm following
- PFTs for pre-op: No airflow obstruction. Preserved lung volumes. Moderately decreased diffusion capacity, corrects to normal when adjusted for alveolar volume per pulmonary
Essential HTN
- continue BP meds
hypercholesterolemia
- continue statin
peripheral artery disease
- continue aspirin/Statin. holding Plavix
Underweight
DVT ppx: IV heparin
Code: Full
Anticipated Discharge: > 48 hours
Subjective/Interval History
-
Date of Service: August 20, 2024
no CP or SOB
Objective Data
-
Labs:
Laboratory Results
08/20/24
03:47
WBC 8.1
Hgb 11.1 L
Hct 32.2 L
Plt Count 222
APTT 95.4 H
Sodium 137
Potassium 3.9
Chloride 105
Carbon Dioxide 24
BUN 8
Creatinine 0.6
Glucose 106 H
Calcium 10.0
Vital Signs:
Vital Signs
Temp Pulse Resp BP Pulse Ox
97.7 F 81 18 108/61 98
08/20/24 11:07 08/20/24 11:07 08/20/24 11:07 08/20/24 11:07 08/20/24 11:07
I&O
08/19/24 08/20/24 08/21/24
06:59 06:59 06:59
Intake Total 606 / 606
Balance 606 / 606
Physical Exam
-
General: No Apparent Distress
HEENT: Normocephalic and Atraumatic
Respiratory: Negative Wheezes
Cardiac: Regular Rhythm and S1/S2
GI: Soft
Genito-urinary: No Costovertebral Tender
Neuro: AO x 3
Psych: Calm
Data Reviewed
-
Total Time Spent with Patient (in minutes): 51
Labs: Labs Reviewed by me
--- NOTE | 2024-08-20 18:05 | PTCARENOTE ---
received patient this am, enjoyed talking with patient throughout the day on various topics and discussing what to expect after surgery, patient asked questions and answered to the best of my ability, offered emotional support. monitor shows NSR,
VSS, patient able to ambulate around the room, nestor. well. IV heparin @ 1050/hr via right forearm without difficulties. U/A cup given to patient and informed that next time she voids to obtain specimen, patient verbalizes understanding.
[2024-08-20] MEDS: LIPITOR 40 MG PO (18:21)
[2024-08-20] MEDS: HEPARIN 25000 UNITS/250 ML IV (18:21)
[2024-08-20 19:08] LABS: Urine Albumin Negative (Neg - Trace); Urine Bilirubin Negative (Negative); Urine Character Clear (Clear); Urine Color Yellow; Urine Glucose Negative (Negative); Urine Ketone Negative (Negative); Urine Leukocyte Negative (Negative); Urine Nitrite Negative (Negative); Urine Occult Blood 1+ (Negative); Urine Urobilinogen Negative (Neg - 1+)
[2024-08-20 19:39] LABS: Urine Bacteria Moderate (Negative); Urine Red Blood Cell 0-2 /HPF (0-2); Urine Squamous Cell >30 /LPF (Few)
--- NOTE | 2024-08-20 20:52 | PTCARENOTE ---
Received pt @ change of shift. AAOx3. VSS. Heparin gtt running through rt forearm @ 1050 units/hr. Discussed plan of care for evening. Pt verbalized understanding. Call graham within reach.
[2024-08-21 04:08] VITALS: BP 129/73
[2024-08-21 04:29] VITALS: BMI 17.2
[2024-08-21 04:39] LABS: APTT 84.2 Sec (23.4-35.0)
[2024-08-21 04:42] LABS: Hematocrit 33.6 % (37.0-47.0); Hemoglobin 11.1 g/dL (12.0-16.0); Mean Corpuscular Hgb 31.4 pg (27.0-31.0); Mean Corpuscular Volume 95.2 fL (81.0-99.0); Mean Platelet Volume 11.4 fL (7.4-10.4); Platelet Count 223 10^3/uL (130-400); Red Blood Cell Count 3.53 10^6/uL (4.20-5.40); Red Cell Dist. Width 13.2 % (11.5-14.5); White Blood Cell Count 8.2 10^3/uL (4.8-10.8)
[2024-08-21 05:03] LABS: Blood Urea Nitrogen 11 mg/dl (7-17); Calcium 10.5 mg/dl (8.4-10.2); Carbon Dioxide 27 mmol/L (22-30); Chloride 102 mmol/L (98-107); Estimated Creatinine Clearance 64 ml/min; Glucose 110 mg/dl (70-99); Potassium 3.6 mmol/L (3.5-5.1); Sodium 139 mmol/L (135-145); eGFR > 60.00
[2024-08-21 06:54] VITALS: BP 115/61
--- NOTE | 2024-08-21 07:36 | W.PN.CARDCBS ---
Addendum entered and electronically signed by Carrillo Levine MD 08/21/24 10:00:
I saw and examined the patient.
The Media/Instructional Designer's note was reviewed and I agree with the note.
Comment:
GEN: No distress, awake, Ox3
HEENT: supple, anicteric, mmm
LUNGS: scatt rhonchi
CV: Reg, S1/S2, 1/6 syst LSB, no gallop
ABD: soft, BS+, NT/ND
EXT: No edema
NEURO: Gross non-focal
SKIN: No rash
Plan:
Overall doing well with no chest pains. Plan is for CABG on Saturday.
Continue aspirin, heparin, Toprol, Imdur, and Lipitor.
Blood pressure stable, hemoglobin 11.
Original Note:
Today's Communication / Plan
-
No complaints. Continue aspirin and heparin
Tentative plan for CABG on Saturday, 08/24.
Continue Imdur and Toprol
Continue lipitor 40mg daily.
Impression / Plan
-
PCP: Dr. Fran Del Cid
Card: Dr. Liang
Impression:
Presented to ER from outpatient [place] cardiology office with abnormal cardiac cath and back pain 08/17/2024
NSTEMI, peak Troponin 0.243
CAD with MV CAD by cardiac cath at [facility] 06/2024
Ischemic CM EF 30 to 35% by echo 08/18/2024
Pulmonary nodule s/p bronchoscopy and biopsy was reportedly negative pathology for malignancy 06/2024
Patient reports that pathology report recommended repeat biopsy for monitoring
HTN
Hyperlipidemia
PAD s/p RLE SECURITY LEAD and stent
Former smoker
Echo 08/18/2024: EF 30 to 35%, mid anteroseptal, mid septal, mid inferior and apical akinesis, stage I diastolic
Plan:
-Presented to [facility] from OP [facility] cardiology office w/ abnormal cardiac cath and back pain.
-Known MV CAD by cath at [facility] 06/2024. Elevated troponin noted this admission, peaking at 0.243 and trending down thereafter.
-Tentative plan is for CABG on 08/24/2024.
-No further chest or back pain noted during admission. Continue heparin gtt. Hgb stable at 11.1.
-Echo 08/18/24 showed cardiomyopathy with EF 30-35%. Managing as ischemic CM. Continues on Toprol XL.
-Holding off on initiation of MARTIN/ARB/ARNI/aldosterone antagonist/SGLT2 inhibitor w/ upcoming surgery.
-Patient has been taking DAPT with aspirin and Plavix since her bronchoscopy was completed 07/20/24. Last dose of Plavix was 08/16/2024, P2Y12 assay was 221. Continues on aspirin 81mg daily.
-Outpatient dose of Imdur ER 30 mg daily has been continued. BP stable.
-LDL 53 and outpatient dose of atorvastatin increased to 40 mg daily
-Cardiac rehab consult to be performed post-op
HPI: Patient was seen as a new patient at [facility] office on 08/17/2024 due to history of abnormal cardiac cath and was referred to ER and is now admitted with consultation to cardiology. Patient used to work at [facility]. She had a shoulder injury
prompting an x-ray that showed a pulmonary nodule. She then followed up with a fieldwork coordinator out of [facility] and was recommended bronchoscopy with biopsy that was performed 06/2024. Patient reports that the pathology was negative for malignancy, but
that in either the bronchoscopy report or the pathology report it was recommended that she have a repeat bronchoscopy and biopsy in about 6 months. Patient reports that as part of the workup for bronchoscopy she had an ECG that was abnormal and had
cardiac cath performed by Dr. Yves Lund at [facility]. Patient recalls being told that her cardiac cath was abnormal and that the plan was for her to complete her bronchoscopy and biopsy and following that she would have an intervention so as to not
interrupt DAPT. Patient says that it has been 1 month since her bronchoscopy and so she followed up with her PCP who arranged for her to see a campground cleaning attendant at another group which was performed yesterday. Cardiac cath films were reviewed by
cardiology at the [facility] office and felt to be abnormal. Patient has possible angina symptoms of upper back tightness and has been having the symptoms at rest. Patient was then referred to ER. Serial troponin in the ER was elevated, peak thus far
0.155. Patient denies any chest or back pain at this time.
Progress Note - Apparel Rental Clerk
Subjective
Date of Service: August 21, 2024
Denies back or chest pain. Feeling well.
Objective
Labs:
08/21/24 04:17
08/21/24 04:17
Labs
Hgb 11.1 g/dL (12.0-16.0) L 08/21/24 04:17
Hct 33.6 % (37.0-47.0) L 08/21/24 04:17
Plt Count 223 10^3/uL (130-400) 08/21/24 04:17
PT 14.4 Sec (11.4-14.6) 08/19/24 02:13
INR 1.09 08/19/24 02:13
APTT 84.2 Sec (23.4-35.0) H 08/21/24 04:17
Sodium 139 mmol/L (135-145) 08/21/24 04:17
Potassium 3.6 mmol/L (3.5-5.1) 08/21/24 04:17
BUN 11 mg/dl (7-17) 08/21/24 04:17
Creatinine 0.6 mg/dL (0.6-1.0) 08/21/24 04:17
Glucose 110 mg/dl (70-99) H 08/21/24 04:17
Troponins
08/18/24 08/18/24
11:38 18:55
Troponin I 0.243 H* D 0.219 H*
Vital Signs and I&O:
Vital Signs
Temp Pulse Resp BP Pulse Ox
98.5 F 72 16 111/56 98
08/21/24 04:07 08/21/24 00:00 08/21/24 04:07 08/20/24 22:54 08/21/24 04:07
Vital Signs
Temp Pulse Resp BP Pulse Ox
98.5 F 72 16 111/56 98
08/21/24 04:07 08/21/24 00:00 08/21/24 04:07 08/20/24 22:54 08/21/24 04:07
Intake & Output
08/19/24 08/20/24 08/21/24 08/22/24
06:59 06:59 06:59 06:59
Intake Total 606 / 606 606 / 606
Balance 606 / 606 606 / 606
Physical Exam
Physical Exam
GEN: No distress, awake, alert, oriented x3
HEENT: supple, anicteric, mmm
LUNGS: CTA b/l, no wheezes/rales
CV: Reg, S1/S2, no murmur
EXT: No clubbing, cyanosis, or edema
NEURO: Gross non-focal
SKIN: Warm, dry, no rash
[2024-08-21] MEDS: TOPROL XL 100 MG PO (08:54)
[2024-08-21] MEDS: LOW STRENGTH ASPIRIN 81 MG PO (08:54)
[2024-08-21] MEDS: IMDUR (EXTENDED RELEASE) 30 MG PO (08:54)
--- NOTE | 2024-08-21 10:19 | PTCARENOTE ---
Pt received this am oob in the chair. OOB independently, gait steady. Denies any chest pain or sob. IV Heparin infusing as ordered. No c/o offered.
[2024-08-21 11:05] VITALS: BP 113/51
--- NOTE | 2024-08-21 11:06 | W.PN.HOSP.TC ---
Today's Communication/Plan
-
continue current plan of care
CABG Thursday 08/24
Assessment / Plan
Assessment / Plan
Echo 08/18: Normal left ventricular chamber size. Normal left ventricular wall thickness.
Moderately reduced left ventricular systolic function. There is mid
anteroseptal, mid septal, mid inferior and apical akinesis. Left ventricular
ejection fraction is 30-35% visually. Stage I diastolic dysfunction suggestive
of abnormal relaxation.
Assessment:
severe CAD with NSTEMI
family history of early coronary disease
- recent Cath at [facility] 1 month ago - multi-vessel CAD
- Echo: as above
- continue IV heparin drip - requires intensive monitoring of PTTs
- continue aspirin/Statin.
- Last dose of Plavix was 08/16/2024, P2Y12 assay was 221
- continue Imdur/BB
- DCA cards following
- CT following; bypass scheduled for Thursday 08/24
Right upper lobe pulmonary nodule-groundglass
- CT chest 08/18/2024: No acute disease of the chest. Moderate atherosclerosis. Right upper lobe groundglass/minimal solid about 4 mm component with cystic component opacity-1.6X 1.2 cm
- CT chest 07/31/2024: Reported 2.3X 1.1 cm groundglass nodule on the right upper lobe with 4 mm solid component. Mild paraseptal emphysema
- robotic bronchoscopy 07/31/2024: Negative cytology
- Pulm following
- PFTs for pre-op: No airflow obstruction. Preserved lung volumes. Moderately decreased diffusion capacity, corrects to normal when adjusted for alveolar volume per pulmonary
Essential HTN
- continue BP meds
hypercholesterolemia
- continue statin
peripheral artery disease
- continue aspirin/Statin. holding Plavix
Underweight
DVT ppx: IV heparin
Code: Full
Anticipated Discharge: > 48 hours
Subjective/Interval History
-
Date of Service: August 21, 2024
resting comfortably, no complaints
Objective Data
-
Labs:
Laboratory Results
08/21/24
04:17
WBC 8.2
Hgb 11.1 L
Hct 33.6 L
Plt Count 223
APTT 84.2 H
Sodium 139
Potassium 3.6
Chloride 102
Carbon Dioxide 27
BUN 11
Creatinine 0.6
Glucose 110 H
Calcium 10.5 H
Vital Signs:
Vital Signs
Temp Pulse Resp BP Pulse Ox
98.1 F 72 20 111/56 97
08/21/24 07:00 08/21/24 00:00 08/21/24 07:00 08/20/24 22:54 08/21/24 08:00
I&O
08/20/24 08/21/24 08/22/24
06:59 06:59 06:59
Intake Total 606 / 606
Balance 606 / 606
Physical Exam
-
General: No Apparent Distress
HEENT: Normocephalic and Atraumatic
Cardiac: Regular Rhythm and S1/S2
Musculoskeletal: No Edema
Neuro: AO x 3
Hematologic / Lymphatic: No Lymphadenopathy
Psych: Calm
Data Reviewed
-
Total Time Spent with Patient (in minutes): 51
Labs: Labs Reviewed by me
--- NOTE | 2024-08-21 11:09 | W.PN.UPDATE ---
Addendum entered and electronically signed by Zachary Gould MD 08/22/24 09:22:
CARDIAC SURGERY ATTENDING:
I had a long conversation at the bedside with . Ruby Garcia. She is a very pleasant 74-year-old woman who will benefit from surgical coronary revascularization. I have tentatively scheduled her as a second case for this coming Saturday,
08/24/2024. We reviewed her pathology, discussed the proposed operative interventions, reviewed the periprocedural risks (including, but not limited to, , stroke, CT, arrhythmia, PNA, NAVEEN/F, bleeding, and infection), discussed expected
in-hospital postprocedural course, and reviewed the expected outpatient recovery. All questions were answered to the best of my abilities. The patient is agreeable to proceed.
Thank you for the opportunity participate in the care of this kind patient.
Please call with any questions or concerns.
Zachary Gould MD
[phone]
Original Note:
Update Note
Progress Note Update
Procedure Type:�Isolated CABG
Perioperative Outcome Estimate %
Operative Mortality 4.2%
Morbidity & Mortality 11.8%
Stroke 1.81%
Renal Failure 1.37%
Reoperation 4.97%
Prolonged Ventilation 5.93%
Deep Sternal Wound Infection 0.132%
Long Hospital Stay (>14 days) 8.26%
Short Hospital Stay (<6 days)* 27.4%
Clinical Summary
Planned Surgery: Isolated CABG, Urgent, First cardiovascular surgery
Demographics: 74 year old, White, female, 48.6kg, 168cm, BMI: 17.2 kg/m�
Lab Values: Creatinine: 0.6 mg/dL, Hematocrit: 33.6%, WBC Count: 8.2 10�/�L, Platelet Count: 327918 cells/�L
Substance Abuse: Former smoker, Alcohol use: <=1 drink/week
Risk Factors / Comorbidities: Treated Endocarditis, Hypertension, Family Hx of CAD
Pulmonary RF: Mild CLD
Cardiac Status: Acute heart failure, Ejection Fraction = 30%
Coronary Artery Disease: 3 vessels diseased, Stable Angina, CT: 1 to 7 Days
Patient is schedule for CABG with Dr. Gould on August 24.
--- NOTE | 2024-08-21 11:45 | CM ---
Chart reviewed. Patient is independent of ADLS, lives with her in a 2 [address], 1 SHAKEEL, 0 DME. Patient is going for a CABG on 08/24. Plan is for the patient to return home with CT Transitional RN. CM to follow
[2024-08-21 14:42] VITALS: BP 114/57
[2024-08-21] MEDS: LIPITOR 40 MG PO (17:15)
[2024-08-21 18:37] VITALS: BP 96/80
[2024-08-21] MEDS: HEPARIN 25000 UNITS/250 ML IV (19:11)
--- NOTE | 2024-08-21 21:30 | PTCARENOTE ---
Received pt @ change of shift. AAOx3. VSS. Heparin gtt running @ 1050 units/hr through right forearm. Denies pain at this time. Discussed plan of care for evening. Pt verbalized understanding. Call graham within reach.
[2024-08-21 22:25] VITALS: BP 105/87
[2024-08-22 06:00] VITALS: BMI 17.1
[2024-08-22 06:05] VITALS: BP 120/64
[2024-08-22 06:40] LABS: Hematocrit 32.3 % (37.0-47.0); Hemoglobin 10.7 g/dL (12.0-16.0); Mean Corp Hgb Conc. 33.1 g/dL (33.0-37.0); Mean Corpuscular Hgb 31.8 pg (27.0-31.0); Mean Corpuscular Volume 96.1 fL (81.0-99.0); Mean Platelet Volume 11.2 fL (7.4-10.4); Platelet Count 207 10^3/uL (130-400); Red Blood Cell Count 3.36 10^6/uL (4.20-5.40); Red Cell Dist. Width 13.2 % (11.5-14.5); White Blood Cell Count 7.1 10^3/uL (4.8-10.8)
[2024-08-22 06:44] VITALS: BP 103/60
[2024-08-22 06:53] LABS: Blood Urea Nitrogen 8 mg/dl (7-17); Calcium 10.2 mg/dl (8.4-10.2); Carbon Dioxide 26 mmol/L (22-30); Chloride 105 mmol/L (98-107); Estimated Creatinine Clearance 64 ml/min; Glucose 108 mg/dl (70-99); Sodium 139 mmol/L (135-145); eGFR > 60.00
[2024-08-22 06:58] LABS: APTT 112.4 Sec (23.4-35.0)
--- NOTE | 2024-08-22 07:45 | W.PN.CARDCBS ---
Addendum entered and electronically signed by Dequan Douglas DO 08/22/24 09:23:
I saw and examined the patient.
The Sales Agent's note was reviewed and I agree with the note.
Comment:
Plan:
Cont IV Heparin
Cont ASA
Cont Toprol and statin.
LDL at goal.
ACEI held in anticipation of surgery.
HR and bp stable.
For CABG August 24 2024
Original Note:
Today's Communication / Plan
-
IV heparin, asa, imdur, toprol, statin
awaiting CABG 08/24
Impression / Plan
-
PCP: Dr. Fran Del Cid
Card: Dr. Liang
Impression:
Presented to [facility] from outpatient [place] cardiology office with abnormal cardiac cath and back pain 08/17/2024
NSTEMI, peak Troponin 0.243
CAD with MV CAD by cardiac cath at [facility] 06/2024
Ischemic CM EF 30 to 35% by echo 08/18/2024
Pulmonary nodule s/p bronchoscopy and biopsy was reportedly negative pathology for malignancy 06/2024
Patient reports that pathology report recommended repeat biopsy for monitoring
HTN
Hyperlipidemia
PAD s/p RLE MANAGER SOLUTION and stent
Former smoker
Echo 08/18/2024: EF 30 to 35%, mid anteroseptal, mid septal, mid inferior and apical akinesis, stage I diastolic
Plan:
-she presented to [facility] with back pain. She has known MV CAD by cath at [facility] 06/2024. Trop peaked at 0.243.
-plan for CABG Thursday 08/24
-chest and back pain free
-continue IV heparin
-with ICM, EF 35%. Continues on Toprol XL. Holding off on initiation of MARTIN/ARB/ARNI/aldosterone antagonist/SGLT2 inhibitor w/ upcoming surgery.
-Patient has been taking DAPT with aspirin and Plavix since her bronchoscopy was completed 07/20/24. Last dose of Plavix was 08/16/2024, P2Y12 assay was 221. Continues on aspirin 81mg daily.
-Continue OP imdur
-LDL 53 and outpatient dose of atorvastatin increased to 40 mg daily
-in SR on review of tele
HPI: Patient was seen as a new patient at [facility] office on 08/17/2024 due to history of abnormal cardiac cath and was referred to ER and is now admitted with consultation to cardiology. Patient used to work at [facility]. She had a shoulder injury
prompting an x-ray that showed a pulmonary nodule. She then followed up with a manager material out of [facility] and was recommended bronchoscopy with biopsy that was performed 06/2024. Patient reports that the pathology was negative for malignancy, but
that in either the bronchoscopy report or the pathology report it was recommended that she have a repeat bronchoscopy and biopsy in about 6 months. Patient reports that as part of the workup for bronchoscopy she had an ECG that was abnormal and had
cardiac cath performed by Dr. Yves Lund at [facility]. Patient recalls being told that her cardiac cath was abnormal and that the plan was for her to complete her bronchoscopy and biopsy and following that she would have an intervention so as to not
interrupt DAPT. Patient says that it has been 1 month since her bronchoscopy and so she followed up with her PCP who arranged for her to see a case managers at another group which was performed yesterday. Cardiac cath films were reviewed by
cardiology at the [facility] office and felt to be abnormal. Patient has possible angina symptoms of upper back tightness and has been having the symptoms at rest. Patient was then referred to ER. Serial troponin in the ER was elevated, peak thus far
0.155. Patient denies any chest or back pain at this time.
Progress Note - Correction Officer
Subjective
Date of Service: August 22, 2024
no issues overnight
Objective
Labs:
08/22/24 06:15
08/22/24 06:15
Labs
Hgb 10.7 g/dL (12.0-16.0) L 08/22/24 06:15
Hct 32.3 % (37.0-47.0) L 08/22/24 06:15
Plt Count 207 10^3/uL (130-400) 08/22/24 06:15
PT 14.4 Sec (11.4-14.6) 08/19/24 02:13
INR 1.09 08/19/24 02:13
APTT 112.4 Sec (23.4-35.0) H 08/22/24 06:15
Sodium 139 mmol/L (135-145) 08/22/24 06:15
Potassium 4.0 mmol/L (3.5-5.1) 08/22/24 06:15
BUN 8 mg/dl (7-17) 08/22/24 06:15
Creatinine 0.6 mg/dL (0.6-1.0) 08/22/24 06:15
Glucose 108 mg/dl (70-99) H 08/22/24 06:15
Vital Signs and I&O:
Vital Signs
Temp Pulse Resp BP Pulse Ox
98.5 F 76 16 103/60 96
08/22/24 06:05 08/22/24 07:00 08/22/24 06:05 08/22/24 06:44 08/22/24 06:05
Vital Signs
Temp Pulse Resp BP Pulse Ox
98.5 F 76 16 103/60 96
08/22/24 06:05 08/22/24 07:00 08/22/24 06:05 08/22/24 06:44 08/22/24 06:05
Intake & Output
08/19/24 08/20/24 08/21/24 08/22/24
07:59 07:59 07:59 07:59
Intake Total 606 / 606 606 / 606
Balance 606 / 606 606 / 606
Physical Exam
Physical Exam
GEN: No distress, awake, alert, oriented x3. sitting in chair
HEENT: supple, anicteric, mmm, eomi
LUNGS: CTA B/L, no wheezes/rales
CV: Reg, S1/S2, no murmur
ABD: soft, BS+, NT/ND
EXT: No cyanosis, clubbing, edema
NEURO: Gross non-focal
SKIN: Warm, pink, dry. No rash
[2024-08-22] MEDS: IMDUR (EXTENDED RELEASE) 30 MG PO (08:43)
[2024-08-22] MEDS: LOW STRENGTH ASPIRIN 81 MG PO (08:43)
[2024-08-22] MEDS: TOPROL XL 100 MG PO (08:43)
--- NOTE | 2024-08-22 10:01 | PTCARENOTE ---
Received patient this morning sitting oob in the chair. IV heparin decreased to 950units/hr as per protocol, for repeat PTT at 1400. Patient now visiting with her , offers no complaints, awaiting surgery on Saturday.
[2024-08-22 10:40] VITALS: BP 112/59
--- NOTE | 2024-08-22 13:43 | W.PN.HOSP.TC ---
Today's Communication/Plan
-
CABG on Saturday
Assessment / Plan
Assessment / Plan
Assessment/Plan:
severe CAD with NSTEMI
family history of early coronary disease
- recent Cath at [facility] 1 month ago - multi-vessel CAD
- Echo:
Echo 08/18: Normal left ventricular chamber size. Normal left ventricular wall thickness.
Moderately reduced left ventricular systolic function. There is mid
anteroseptal, mid septal, mid inferior and apical akinesis. Left ventricular
ejection fraction is 30-35% visually. Stage I diastolic dysfunction suggestive
of abnormal relaxation.
- continue IV heparin drip - requires intensive monitoring of PTTs
- continue aspirin/Statin.
- Last dose of Plavix was 08/16/2024, P2Y12 assay was 221
- continue Imdur/BB
- DCA cards following
- CT following; bypass scheduled for Thursday 08/24
Right upper lobe pulmonary nodule-groundglass
- CT chest 08/18/2024: No acute disease of the chest. Moderate atherosclerosis. Right upper lobe groundglass/minimal solid about 4 mm component with cystic component opacity-1.6X 1.2 cm
- CT chest 07/31/2024: Reported 2.3X 1.1 cm groundglass nodule on the right upper lobe with 4 mm solid component. Mild paraseptal emphysema
- robotic bronchoscopy 07/31/2024: Negative cytology
- Pulm following
- PFTs for pre-op: No airflow obstruction. Preserved lung volumes. Moderately decreased diffusion capacity, corrects to normal when adjusted for alveolar volume per pulmonary
Essential HTN
- continue BP meds
hypercholesterolemia
- continue statin
peripheral artery disease
- continue aspirin/Statin. holding Plavix
Underweight
DVT ppx: IV heparin
Code: Full
Family communication: Discussed with at bedside
Anticipated Discharge: > 48 hours
Subjective/Interval History
-
Date of Service: August 22, 2024
Patient seen and examined at bedside, denies any chest pain or shortness of breath, no abdominal pain, no nausea, no vomiting, no diarrhea or constipation.
at bedside.
For CABG on Saturday.
Objective Data
-
Labs:
Laboratory Results
08/22/24 08/22/24 08/22/24
06:15 08:00 14:00
WBC 7.1
Hgb 10.7 L
Hct 32.3 L
Plt Count 207
APTT 112.4 H Cancelled Pending
Sodium 139
Potassium 4.0
Chloride 105
Carbon Dioxide 26
BUN 8
Creatinine 0.6
Glucose 108 H
Calcium 10.2
Vital Signs:
Vital Signs
Temp Pulse Resp BP Pulse Ox
98 F 68 18 112/59 99
08/22/24 10:40 08/22/24 11:00 08/22/24 10:40 08/22/24 10:40 08/22/24 10:40
I&O
08/21/24 08/22/24 08/23/24
06:59 06:59 06:59
Intake Total 606 / 606 480 / 480
Balance 606 / 606 480 / 480
Physical Exam
-
General: Well Developed, Well Nourished, No Apparent Distress and Comfortable
HEENT: Normocephalic, Atraumatic, Moist Mucous Membranes, No Ptosis, PERRLA and Nose Appears Normal
Respiratory: Rales and Non Labored Respirations
Cardiac: Regular Rhythm and S1/S2
Breast: Deferred by me
GI: Soft, Nontender, Nondistended and Normal Bowel Sounds
Genito-urinary: No Costovertebral Tender
Musculoskeletal: No Clubbing, No Cyanosis and No Edema
Skin: Warm
Neuro: Awake, Alert, Oriented, AO x 3 and No Motor Deficits
Psych: Calm
Data Reviewed
-
Diagnostic Radiology: Image personally visualized and interpreted and Report Reviewed by me
CT Scan: Image personally visualized and interpreted and Report Reviewed by me
Ultrasound: Image personally visualized and interpreted and Report Reviewed by me
MRI: Image personally visualized and interpreted and Report Reviewed by me
Medical Tests (Nuc Med, Echo etc): Image personally visualized and interpreted and Report Reviewed by me
Labs: Labs Reviewed by me
Old Records: Reviewed
[2024-08-22 15:13] LABS: APTT 103.4 Sec (23.4-35.0)
[2024-08-22 15:19] VITALS: BP 98/67
[2024-08-22] MEDS: LIPITOR 40 MG PO (17:58)
[2024-08-22 19:26] VITALS: BP 114/76
[2024-08-22] MEDS: HEPARIN 25000 UNITS/250 ML IV (19:35)
[2024-08-22 21:29] LABS: APTT 125.3 Sec (23.4-35.0)
[2024-08-22 22:43] VITALS: BP 121/54
--- NOTE | 2024-08-22 23:08 | PTCARENOTE ---
Received patient at change of shift. SR on the monitor, HR in the 70s. Heparin running as per protocol, see documentation. No complaints from pt at this time, call graham within reach.
[2024-08-23 03:38] VITALS: BP 111/64
[2024-08-23 03:47] VITALS: BMI 17.3
[2024-08-23 03:54] LABS: Hematocrit 29.9 % (37.0-47.0); Mean Corp Hgb Conc. 33.4 g/dL (33.0-37.0); Mean Corpuscular Hgb 31.8 pg (27.0-31.0); Mean Corpuscular Volume 95.2 fL (81.0-99.0); Platelet Count 182 10^3/uL (130-400); Red Blood Cell Count 3.14 10^6/uL (4.20-5.40); Red Cell Dist. Width 13.2 % (11.5-14.5); White Blood Cell Count 6.9 10^3/uL (4.8-10.8)
[2024-08-23 04:13] LABS: APTT 95.6 Sec (23.4-35.0)
[2024-08-23 04:35] LABS: Blood Urea Nitrogen 6 mg/dl (7-17); Calcium 9.5 mg/dl (8.4-10.2); Carbon Dioxide 24 mmol/L (22-30); Chloride 110 mmol/L (98-107); Estimated Creatinine Clearance 65 ml/min; Glucose 100 mg/dl (70-99); Potassium 3.5 mmol/L (3.5-5.1); Sodium 140 mmol/L (135-145); eGFR > 60.00
[2024-08-23] MEDS: KCL 40 MEQ PO (05:18)
--- NOTE | 2024-08-23 05:45 | W.PN.CT ---
Today's Communication / Plan
-
Plan:
-Cont. current medical management per primary team
-Cont. current meds (ASA, Heparin gtt, Lipitor, Imdur, Toprol xL)
-Replete K, 3.5
-Cont. to hold Plavix, ARBs, MARTIN-I, CCB in preparation for CABG
-Will stop heparin gtt window/distribution clerk to OR
-For CABG/DESTINY clip by Dr. Gould on Saturday08/24/24. Pt will be 2nd case
-Will cont. to closely monitor
Assessment / Plan
-
Assessment:
-Severe 3v CAD
-NSTEMI (peak trop 0.243)
-ICM
-LVEF 30-35%
-Mild MR/TR
-RUL Lung Nodule S/P bronchoscopy and biopsy, 07/31/2024 (Benign)
-Former tobacco use (quit 2005)
-HTN
-HLD
-Severe PAD S/p RLE HOSE FINISHER and stent x 2 (on Plavix)
-S/P hysterectomy
-S/p cholecystectomy
Discussed patient care with: Cardiology, Nursing, Respiratory Therapy, Pharmacy and Care Team
Subjective
-
Date of Service: August 23, 2024
No issues overnight. Denies CP/SOB
Objective Data
-
Lab Results
08/23/24 03:42
08/23/24 03:42
PT 14.4 Sec (11.4-14.6) 08/19/24 02:13
INR 1.09 08/19/24 02:13
APTT 95.6 Sec (23.4-35.0) H 08/23/24 03:42
Vital Signs
Vital Signs
Temp Pulse Resp BP Pulse Ox
97.7 F 75 18 111/64 99
08/23/24 03:47 08/23/24 04:00 08/23/24 03:47 08/23/24 03:38 08/23/24 03:47
CT Intake/Output/Weight
08/22/24 08/22/24 08/23/24
06:59 18:59 06:59
Intake Total 720 / 1200 480 / 1200
Balance 720 / 1200 480 / 1200
SaO2: 99 (RA)
Physical Exam
-
General: Awake, Oriented and AOx3
Cardiovascular: Regular rate & rhythm, No Murmurs, No Rub and No Gallop
Respiratory: Clear
Extremities: Other (+trace edema)
Data Reviewed
-
Lab Results: Results Reviewed
Medications: Active Meds Reviewed
Chest X-Ray: Report Reviewed and Image Reviewed
ECG: Report Reviewed and Image Reviewed
[2024-08-23 07:02] LABS: Magnesium 1.7 mg/dl (1.6-2.3)
[2024-08-23 07:09] VITALS: BP 120/48
--- NOTE | 2024-08-23 07:39 | W.PN.CARDCBS ---
Today's Communication / Plan
-
CABG AM
Cont IV heparin
Impression / Plan
-
.
PCP: Dr. Fran Del Cid
Card: Dr. Liang
Impression:
Presented to ER from outpatient [place] cardiology office with abnormal cardiac cath and back pain 08/17/2024
NSTEMI, peak Troponin 0.243
CAD with MV CAD by cardiac cath at [facility] 06/2024
Ischemic CM EF 30 to 35% by echo 08/18/2024
Pulmonary nodule s/p bronchoscopy and biopsy was reportedly negative pathology for malignancy 06/2024
Patient reports that pathology report recommended repeat biopsy for monitoring
HTN
Hyperlipidemia
PAD s/p RLE MANAGER HIV and stent
Former smoker
Echo 08/18/2024: EF 30 to 35%, mid anteroseptal, mid septal, mid inferior and apical akinesis, stage I diastolic
Plan:
-she presented to [facility] with back pain. She has known MV CAD by cath at [facility] 06/2024. Trop peaked at 0.243.
Cont IV Heparin
Cont ASA
ICM EF 35%, appears euvolemic.
Cont Toprol and Imdur
Cont statin, LDL at goal.
ACEI held in anticipation of surgery.
HR and bp remains stable.
For CABG August 24 2024
HPI: Patient was seen as a new patient at [facility] office on 08/17/2024 due to history of abnormal cardiac cath and was referred to ER and is now admitted with consultation to cardiology. Patient used to work at [facility]. She had a shoulder injury
prompting an x-ray that showed a pulmonary nodule. She then followed up with a irrigation pump installer out of [facility] and was recommended bronchoscopy with biopsy that was performed 06/2024. Patient reports that the pathology was negative for malignancy, but
that in either the bronchoscopy report or the pathology report it was recommended that she have a repeat bronchoscopy and biopsy in about 6 months. Patient reports that as part of the workup for bronchoscopy she had an ECG that was abnormal and had
cardiac cath performed by Dr. Yves Lund at [facility]. Patient recalls being told that her cardiac cath was abnormal and that the plan was for her to complete her bronchoscopy and biopsy and following that she would have an intervention so as to not
interrupt DAPT. Patient says that it has been 1 month since her bronchoscopy and so she followed up with her PCP who arranged for her to see a wire sawyer at another [facility] which was performed yesterday. Cardiac cath films were reviewed by
cardiology at the [facility] office and felt to be abnormal. Patient has possible angina symptoms of upper back tightness and has been having the symptoms at rest. Patient was then referred to ER. Serial troponin in the ER was elevated, peak thus far
0.155. Patient denies any chest or back pain at this time.
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
Subjective
Date of Service: August 23, 2024
Pt seen and examined. No cp or dyspnea.
Objective
Labs:
08/23/24 03:42
08/23/24 03:42
Labs
Hgb 10.0 g/dL (12.0-16.0) L 08/23/24 03:42
Hct 29.9 % (37.0-47.0) L 08/23/24 03:42
Plt Count 182 10^3/uL (130-400) 08/23/24 03:42
PT 14.4 Sec (11.4-14.6) 08/19/24 02:13
INR 1.09 08/19/24 02:13
APTT 95.6 Sec (23.4-35.0) H 08/23/24 03:42
Sodium 140 mmol/L (135-145) 08/23/24 03:42
Potassium 3.5 mmol/L (3.5-5.1) 08/23/24 03:42
BUN 6 mg/dl (7-17) L 08/23/24 03:42
Creatinine 0.6 mg/dL (0.6-1.0) 08/23/24 03:42
Glucose 100 mg/dl (70-99) H 08/23/24 03:42
Vital Signs and I&O:
Vital Signs
Temp Pulse Resp BP Pulse Ox
97.9 F 75 20 111/64 98
08/23/24 07:09 08/23/24 04:00 08/23/24 07:09 08/23/24 03:38 08/23/24 07:09
Vital Signs
Temp Pulse Resp BP Pulse Ox
97.9 F 75 20 111/64 98
08/23/24 07:09 08/23/24 04:00 08/23/24 07:09 08/23/24 03:38 08/23/24 07:09
Intake & Output
08/21/24 08/22/24 08/23/24 08/24/24
06:59 06:59 06:59 06:59
Intake Total 606 / 606 1200 / 1200
Balance 606 / 606 1200 / 1200
Physical Exam
Physical Exam
General: No acute distress, AAOX3
Neck: Negative JVD
Heart: Regular, Negative S3 positive S1/S2, Negative S4, No murmur
Lungs: CTA b/l, negative wheezes/rales/rhonchi
Abd: Positive BS, NT/ND, neg rebound/rigidity/guarding
Ext: Negative cyanosis/clubbing/edema
Neuro: nonfocal
[2024-08-23] MEDS: IMDUR (EXTENDED RELEASE) 30 MG PO (09:00)
[2024-08-23] MEDS: LOW STRENGTH ASPIRIN 81 MG PO (09:00)
[2024-08-23] MEDS: TOPROL XL 100 MG PO (09:00)
--- NOTE | 2024-08-23 10:09 | PTCARENOTE ---
Received patient this morning sitting oob in the chair eating breakfast. IV heparin infusing at 850 units/hr, patient denies any pain or sob. Unable to move her bowels, does not want any medication at this point. Prune juice ordered from the kitchen
which she would like to try first.
[2024-08-23 10:26] LABS: APTT 74.2 Sec (23.4-35.0)
[2024-08-23 11:24] VITALS: BP 106/56
--- NOTE | 2024-08-23 13:44 | W.PN.HOSP.TC ---
Today's Communication/Plan
-
CABG in am
Assessment / Plan
Assessment / Plan
Assessment/Plan:
severe CAD with NSTEMI
family history of early coronary disease
- recent Cath at [facility] 1 month ago - multi-vessel CAD
- Echo:
Echo 08/18: Normal left ventricular chamber size. Normal left ventricular wall thickness.
Moderately reduced left ventricular systolic function. There is mid
anteroseptal, mid septal, mid inferior and apical akinesis. Left ventricular
ejection fraction is 30-35% visually. Stage I diastolic dysfunction suggestive
of abnormal relaxation.
- continue IV heparin drip - requires intensive monitoring of PTTs
- continue aspirin/Statin.
- Last dose of Plavix was 08/16/2024, P2Y12 assay was 221
- continue Imdur/BB
- DCA cards following
- CT following; bypass scheduled for Thursday 08/24
Right upper lobe pulmonary nodule-groundglass
- CT chest 08/18/2024: No acute disease of the chest. Moderate atherosclerosis. Right upper lobe groundglass/minimal solid about 4 mm component with cystic component opacity-1.6X 1.2 cm
- CT chest 07/31/2024: Reported 2.3X 1.1 cm groundglass nodule on the right upper lobe with 4 mm solid component. Mild paraseptal emphysema
- robotic bronchoscopy 07/31/2024: Negative cytology
- Pulm following
- PFTs for pre-op: No airflow obstruction. Preserved lung volumes. Moderately decreased diffusion capacity, corrects to normal when adjusted for alveolar volume per pulmonary
Essential HTN
- continue BP meds
hypercholesterolemia
- continue statin
peripheral artery disease
- continue aspirin/Statin. holding Plavix
Underweight
DVT ppx: IV heparin
Code: Full
Family communication: Discussed with at bedside
Total time spent on today's encounter was 65 minutes which included time spent in counseling the patient/family regarding diagnosis and treatment plan as listed above, goals of care, and symptom management. Case was discussed with nursing staff,
specialists, and care coordinators/case management. All labs and imaging personally reviewed by me. Remainder the time spent in detailed review of previous records, lab data, imaging, and other medical provider documentation.
Anticipated Discharge: > 48 hours
Subjective/Interval History
-
Date of Service: August 23, 2024
Patient seen and examined at bedside, denies any chest pain or shortness of breath, no abdominal pain, no nausea, no vomiting,, has constipation.
For CABG in a.m.
Objective Data
-
Labs:
Laboratory Results
08/23/24 08/23/24 08/23/24
03:42 09:59 16:00
WBC 6.9
Hgb 10.0 L
Hct 29.9 L
Plt Count 182
APTT 95.6 H 74.2 H Pending
Sodium 140
Potassium 3.5
Chloride 110 H
Carbon Dioxide 24
BUN 6 L
Creatinine 0.6
Glucose 100 H
Calcium 9.5
Vital Signs:
Vital Signs
Temp Pulse Resp BP Pulse Ox
98 F 74 20 106/56 98
08/23/24 11:26 08/23/24 12:00 08/23/24 11:26 08/23/24 11:24 08/23/24 11:26
I&O
08/22/24 08/23/24 08/24/24
06:59 06:59 06:59
Intake Total 1200 / 1200 480 / 480
Balance 1200 / 1200 480 / 480
Physical Exam
-
General: Well Developed, Well Nourished, No Apparent Distress and Comfortable
HEENT: Normocephalic, Atraumatic, Moist Mucous Membranes, No Ptosis, PERRLA and Nose Appears Normal
Respiratory: Rales and Non Labored Respirations
Cardiac: Regular Rhythm and S1/S2
Breast: Deferred by me
GI: Soft, Nontender, Nondistended and Normal Bowel Sounds
Genito-urinary: No Costovertebral Tender
Musculoskeletal: No Clubbing, No Cyanosis and No Edema
Skin: Warm
Neuro: Awake, Alert, Oriented, AO x 3 and No Motor Deficits
Psych: Calm
Data Reviewed
-
Diagnostic Radiology: Image personally visualized and interpreted and Report Reviewed by me
CT Scan: Image personally visualized and interpreted and Report Reviewed by me
Ultrasound: Image personally visualized and interpreted and Report Reviewed by me
MRI: Image personally visualized and interpreted and Report Reviewed by me
Medical Tests (Nuc Med, Echo etc): Image personally visualized and interpreted and Report Reviewed by me
Labs: Labs Reviewed by me
Old Records: Reviewed
[2024-08-23 15:35] VITALS: BP 100/56
[2024-08-23] MEDS: DULCOLAX 10 MG RECTAL (16:11)
[2024-08-23 17:19] LABS: APTT 47.2 Sec (23.4-35.0)
--- NOTE | 2024-08-23 17:34 | PTCARENOTE ---
Patient constipated, reluctant to take PO meds worried that she would have diarrhea before surgery. Tried prune juice this morning without success. Given dulcolax supp NC, patient had a large bm x 3, feeling much better. To transfer patient to room
2262 in preparation for surgery tomorrow.
[2024-08-23] MEDS: LIPITOR 40 MG PO (17:57)
[2024-08-23 18:54] VITALS: BP 103/53
--- NOTE | 2024-08-23 19:00 | PTCARENOTE ---
admitted pt into 2262 from IVU. VSS, NSR on tele. no c/o at this time. call graham within reach .
--- NOTE | 2024-08-23 22:55 | PTCARENOTE ---
pt clipped and showered with full bottle of CHG soap. no change in assessment, resting comfortably with call graham within reach .
[2024-08-23 23:37] VITALS: BP 114/42
[2024-08-23] MEDS: HEPARIN 25000 UNITS/250 ML IV (23:53)
[2024-08-24] VITALS (15 sets, daily range): BP systolic 81–120; BP diastolic 44–70
[2024-08-24 00:05] LABS: APTT 85.1 Sec (23.4-35.0)
--- NOTE | 2024-08-24 05:48 | PTCARENOTE ---
pt given 2nd CHG bath. resting comfortably, no change in assessment .
[2024-08-24 06:20] LABS: Hematocrit 29.6 % (37.0-47.0); Hemoglobin 9.9 g/dL (12.0-16.0); Mean Corp Hgb Conc. 33.4 g/dL (33.0-37.0); Mean Corpuscular Hgb 32.2 pg (27.0-31.0); Mean Corpuscular Volume 96.4 fL (81.0-99.0); Mean Platelet Volume 12.3 fL (7.4-10.4); Platelet Count 190 10^3/uL (130-400); Red Blood Cell Count 3.07 10^6/uL (4.20-5.40); Red Cell Dist. Width 13.2 % (11.5-14.5); White Blood Cell Count 7.2 10^3/uL (4.8-10.8)
[2024-08-24 06:36] LABS: APTT 119.7 Sec (23.4-35.0)
[2024-08-24 06:43] LABS: Blood Urea Nitrogen 6 mg/dl (7-17); Calcium 10.3 mg/dl (8.4-10.2); Carbon Dioxide 24 mmol/L (22-30); Chloride 107 mmol/L (98-107); Estimated Creatinine Clearance 65 ml/min; Glucose 102 mg/dl (70-99); Potassium 4.3 mmol/L (3.5-5.1); Sodium 138 mmol/L (135-145); eGFR > 60.00
[2024-08-24] MEDS: LOW STRENGTH ASPIRIN PO (08:38)
--- NOTE | 2024-08-24 08:45 | PTCARENOTE ---
confirmed with [facility] TANISHA that 100mg metoprolol and imdur 30mg to be administered prior to the pt going to the OR today.
[2024-08-24] MEDS: IMDUR (EXTENDED RELEASE) 30 MG PO (09:01)
[2024-08-24] MEDS: TOPROL XL 100 MG PO (09:01)
[2024-08-24] MEDS: PROTONIX 40 MG PO (10:05)
[2024-08-24] MEDS: MAGNESIUM OXIDE 500 MG PO (10:05)
[2024-08-24] MEDS: BACTROBAN 2% OINTMENT 1 APPLIC NASAL ×2 (10:08→19:25)
--- NOTE | 2024-08-24 10:24 | PTCARENOTE ---
pt sent to the CVOR
[2024-08-24 10:40] LABS: ACT+ - POC 115 Seconds (82-134)
[2024-08-24 11:14] LABS: Urine Albumin Negative (Neg - Trace); Urine Bilirubin Negative (Negative); Urine Character Clear (Clear); Urine Color Yellow; Urine Glucose Negative (Negative); Urine Ketone Negative (Negative); Urine Leukocyte Negative (Negative); Urine Nitrite Negative (Negative); Urine Occult Blood 2+ (Negative); Urine Urobilinogen Negative (Neg - 1+)
--- NOTE | 2024-08-24 11:15 | CM ---
Reviewed chart. Mrs Garcia is in the operating room today. Prior to admission she resides with her spouse in a two story home with one step to enter. Prior to admission she was independent with ambulation and adls. She does not have any DME in the
home. Medial work-up in progress. The discharge plan is to return home with her spouse and a home visit by the Transitional Care Nurse when medically stable.
[2024-08-24 11:37] LABS: Urine Amorphous Seen
[2024-08-24 11:38] LABS: Urine Red Blood Cell 0-2 /HPF (0-2); Urine White Cell 0-2 /HPF (0-5)
[2024-08-24 12:28] LABS: ACT+ - POC 493 Seconds (82-134)
[2024-08-24 13:08] LABS: ACT+ - POC 625 Seconds (82-134)
[2024-08-24 13:29] LABS: ACT+ - POC 592 Seconds (82-134)
[2024-08-24 14:16] LABS: ACT+ - POC 548 Seconds (82-134)
[2024-08-24 14:41] LABS: B.E. - POC -0.3 mmol/L; Glucose - POC 178 mg/dl (70-99); HCO3 - POC 24 mmol/L (21-28); Hematocrit - POC 31 % PCV (37-47); Hemodilution- POC Yes; Hemoglobin Calculated - POC 10.4; Ionized Calcium - POC 0.98 mmol/L (1.15-1.33); Lactate - POC 1.22 mmol/L (0.36-0.75); O2 Saturation %Calculated-POC 99.9 % (94-98); PCO2 - POC 37 mmHg (35-48); PO2 - POC 259 mmHg (83-108); POC Comment WARM; Potassium - POC 5.6 mmol/L (3.5-5.1); Sodium - POC 138 mmol/L (136-145); Specimen Type - POC Arterial; pH - POC 7.42 (7.35-7.45)
[2024-08-24 14:53] LABS: ACT+ - POC 109 Seconds (82-134)
--- NOTE | 2024-08-24 15:13 | W.CVOR.SURPR ---
CVOR Surgeon Immed Pre Op
-
I have examined this patient prior to performance of the scheduled procedure.
The patient's condition is unchanged from the time of the dictated/written History and
Physical and the patient is able to undergo the scheduled procedure.
--- NOTE | 2024-08-24 15:13 | W.IMMPOSTOP ---
Addendum entered and electronically signed by Zachary Gould MD 08/24/24 16:23:
[id number]
Original Note:
Surgical Immed Post Op Note
-
CARDIAC SURGERY OPERATIVE NOTE;
Preoperative Dx:
MVCAD
PAD s/p prior RLE stent
HTN/HLD
ICM w/ [id number]%
Prior anterior and inferior MIs
RUL nodule/mass (s/p bronch/bx - neg for malignancy)
Postoperative Dx:
Same
Procedures:
1) Median sternotomy
2) Takedown of EARL (narrow pedicle)
3) Endoscopic harvest/prep of RLE GSV
4) CABG x 3 (EARL to LAD, GSV to RI, GSV to RPLB)
5) ELAA (40mm AtriClip)
Surgeon:
Zachary Gould M.D.
Assistants:
Josiah Trinh-Essence; physician office assistant throughout
Marya Ruiz P.A.-C.; endoscopic harvest/prep of RLE GSV
Bert Peña P.A.-C.; secondary assistant restaurant general manager during GSV to RPLB; [id number] sternotomy closure
Anesthesia:
Fab Gallagher M.D. and Essence FairR.N.A.
Perfusion:
Essence AgarwalCMaryPMary; CPB: 105min, XC: 70min
Findings:
EARL was a healthy conduit w/ brisk blood flow; ELD 2.25mm
GSV was a good conduit w/ ELD 2.5-3.25mm; slightly thin walled
LAD was visible on the epicardial surface apically, midpoint under small amount of epicardial adipose tissue. Fairly dense scattered calcifications throughout. Anastomosis performed at junction between distal and middle third of LAD. At this
location sun were normal appearing w/ ELD 2.5mm. Excellent flow.
RI/OM was visible on the epicardial surface as it left the AV groove and then took a shallow intramyocardial course under 1mm of myocardium. Anastomosis performed in intramyocardial segment. Normal sun at this location w/ ELD 2.5mm. Excellent
flow.
Terminal OM branches were both submillimeter and not amenable to bypass
RPDA was submillimeter and not amenable to bypass
RPLB was submillimeter at standard area of bypass touchdown. I tracked this vessel proximally under epicardial adipose and it became slightly more favorable appearing. I performed an arteriotomy, and despite a favorable surface profile, this
vessel was quite small. It had normal wall thickness w/ an ELD 1.1mm. I performed the anastomosis over a 1.0mm intracoronary shunt. I was pleasantly surprised w/ the good flow observed on hand injection and on transit-time U/S flow probe
assessment
Good flow in all grafts on U/S flow probe assessment
Post-GLADYS: LVEF 40-45%, apical, septal, and anteroseptal hypokinesis; RV normal; mild TR; mild MR; DESTINY confirmed excluded at base on color-flow assessment
Implants:
CT x 4 (B/L pleural, inferior mediastinal, superior mediastinal)
Sternal wires x 10
Complications:
None
Transfusions:
1U PRBC
Condition:
56 sinus (-0.6/0.1); 98/46; 33/14; CVP 10; 100%; CO/CI: 2.3/1.5 (dobutamine increased to 4)
GTTS: levophed 6, insulin 1, precedex 0.5, dobutamine 3
Stable/guarded to CVICU
[2024-08-24 15:46] LABS: Glucose - Point of Care 137 mg/dl (70-99)
[2024-08-24 15:58] LABS: B.E. -2.1 mmol/L; HCO3 22.3 mmol/L (21-28); Ionized Calcium 1.26 mMOL/L (1.15-1.33); PCO2 36 mmHg (32-35); PO2 198 mmHg (83-108); Potassium 3.6 mMOL/L (3.5-5.1); Sodium 136 mMOL/L (136-145)
[2024-08-24 16:07] LABS: Hemoglobin 10.1 g/dL (12.0-16.0); Platelet Count 122 10^3/uL (130-400)
--- NOTE | 2024-08-24 16:10 | PTCARENOTE ---
Received pt from CVOR into 226, sinus rhythm on tele w HR 90-100, + peripheral pulses, no edema, Right IJ cordis w swan floated to 42, CO 2.14 CI 1.39, PAP 22/14, CVP 6, BP via left radial radha 90-120/60's. #8 ETT/ 23 right lip, VENT SETTINGS:
SIMV 40%/500/12/+5 PEEP, pox 100%,
Post op labs, EKG and CXR completed. CPOT 0 RASS-5
DRIPS: Dobutamine 4mcg/kg/min
Levophed 2mcg/min
Precedex 0.5mcg/kg/hr
Insulin titrated per glycemic protocol
--- NOTE | 2024-08-24 16:18 | W.PN.UPDATE ---
Update Note
Progress Note Update
74-year-old female with known PAD and history of RLE stent, had abnormal EKG as part of workup for bronchoscopy for an incidental finding of a pulmonary nodule. Bronchoscopy was negative for malignancy. Patient admitted to upper back
tightness at rest and with activity. Patient underwent left heart cath on 07/20 at [facility] by Dr Lund. The cath films were reviewed by the cardiology group at [facility] office and was felt to be abnormal. Therefore due to these findings and
symptoms, she was sent to the [facility] emergency room on 08/17/24. Last dose of Plavix was 08/16/2024. Max Troponin I was 0.234 c/w NSTEMI and IV Heparin was initiated. TTE performed 08/18 identified ICM/HFrEF (30-35%). Surgery was
postponed 08/21 as the P2 Y12 level of 221 on 08/20 was indicative of continued anticoagulant effect.
IV fluids: 1300
U.O.:� 360
Blood:� 1PRBC
Wires:� none
Drips: Dobutamine @ 4, Insulin
Sedatives:� Precedex @ 0.5
�
NEURO: sedatd, pupils +2mm B/L
RESP: #8OT @23cm> 500/60%/14/5. Lungs clear B/L. 2 mediastinal (0cc on arrival) and R/L pleural (0cc on arrival) chest tubes to -20cm suction. Sanguineous drainage, no air leak, no crepitus
CV: RRR +S1, S2, no S3, no�rub, no murmur. Aquacell to median sternotomy. RIJ w/[place] locked @ 49cm. PA 20/9; CVP 6
ABD: flat, soft, no BS
EXT: no edema, +2/4 DP pulses B/L, no femoral bruit, RLE MARTIN wrap intact; left radial A-line intact
: Alonso with clear yellow urine
�
A/P: POD #0 s/p CABG x 3 (EARL to LAD, GSV to RI, GSV to RPLB), ELAA (40mm AtriClip)
GLADYS: EF�40-45%, mild MR, mild TR
- wean and extubate
# CAD/NSTEMI/HFrEF
- will require ASA, Plavix, statin, beta- jay when tolerating solids
# PAD w/hx R popliteal and distal SFA stents (2020)
- will continue ASA/Plavix, statin
�
# acute surgical blood loss anemia-expected
- trend CBC s/p intraop transfusion 1 PRBC
�
# RUL nodule/mass (s/p bronch/bx - neg for malignancy 2023)
- no further intervention
�
[2024-08-24 16:24] LABS: INR 1.72; PT 20.4 Sec (11.4-14.6)
[2024-08-24] MEDS: KCL 50 IV ×3 (16:25→23:04)
[2024-08-24] MEDS: NSS 500 IV (16:26)
[2024-08-24] MEDS: PACERONE PO ×2 (16:27→21:12)
[2024-08-24] MEDS: TYLENOL PO ×2 (16:27→21:12)
[2024-08-24] MEDS: ANCEF 10 IV ×2 (16:27)
[2024-08-24] MEDS: NEURONTIN PO ×2 (16:27→21:12)
[2024-08-24] MEDS: LIPITOR PO (16:28)
[2024-08-24] MEDS: LR 250 ML IV (16:30)
--- NOTE | 2024-08-24 16:30 | W.PN.INTV ---
Today's Communication / Plan
Recommendations
continue volume-cycled ventilation
Hope for extubation later today
Sinus bradycardia noted. Precedex discontinued
Maps between 55 and [address]
Continue [address] surgery
Postoperative chest x-ray adequate
Assessment
-
74-year-old woman with past medical history noted. Transferred from [facility] for evaluation of CABG. On CAT scan she has a right upper lobe groundglass opacity status post robotic bronchoscopy tissue sampling at -07/31 that was
benign-atypical cells found.
We were consulted on 08/19/2024 for preop territory pulmonary assessment.
-
S/p CAB x 3 on 08/24/24
Post GLADYS EF 40%
On norepinephrine, dobutamine, Precedex, insulin
Right upper lobe pulmonary nodule-groundglass
CT chest 08/18/2024: No acute disease of the chest. Moderate atherosclerosis. Right upper lobe groundglass/minimal solid about 4 mm component with cystic component opacity-1.6X 1.[address] chest 07/31/2024: Reported 2.3X 1.1 cm groundglass nodule on the right upper lobe with 4 mm solid component.
Mild paraseptal emphysema
Multivessel coronary artery disease-ischemic cardiomyopathy-unstable angina
Echocardiogram 08/18/2024: Ejection fraction 30 to 35%, mid anteroseptal, mid septal and mid inferior and apical akinesis, stage I diastolic dysfunction.
-
Conditions present prior admission:
Ischemic cardiomyopathy ejection fraction 30 to 35% by echocardiogram
Multivessel coronary artery disease by cath 06/2024
Pulmonary groundglass nodule status post bronchoscopy and biopsy 07/2024
Benign. Minimal atypical cells-follows up with Dr. Holt
Hypertension
Hyperlipidemia
Peripheral arterial disease status post right lower extremity stent
Former smoker-quit in 2005
Assessment and plan:
At this time, patient appears critically ill but comfortable, awake, nodding appropriately
Remains on volume-cycled ventilation
Postoperative chest x-ray adequate
Postoperative EKG with sinus bradycardia
Patient heart rate decreased upon arrival, mean pressures [address] surgery at bedside
Moving forward
Continue with management per CT surgery
-
EKG with sinus rhythm per discussion with cardiology
Patient on epinephrine, norepinephrine. Systolic pressure 90s, maps 57
Dobutamine discontinued
Continue with pressors per CT surgery
Precedex has been discontinued
CT drainage minimal
Alonso in place, UO noted
-
Prior discussion:
Right upper lobe lung nodule differential diagnosis includes adenocarcinoma in situ versus scarring.
As noted status post robotic bronchoscopy 07/31/2024 at [facility]-minimal atypical cells.
PET/CT reportedly showed no significant FDG avidity -Plan in the outpatient setting was to evaluate CT surgery in the future versus repeating biopsy.
It is encouraging that in our CAT scan here the size of the lung nodule decreased from 2.3 to 1.6 cm. Solid component of 4 mm remains stable.
This will be evaluated at a later time in the future. She will continue to follow-up with Dr. Holt at [facility] for this.
I also discussed this with Dr. Aaron Liang primary bench assembler and he agreed. He did discuss the case with Dr. Holt over the phone.
Patient agreeable with above plan.
-
Reviewed with critical care nursing
Reviewed with cardiology, CT surgery
TCCT 31 min.
Data
Pulmonary function testing 08/20/2024:
FEV1/FVC ratio 70%, FEV1 1.98 L - 86%, FVC 2.82 L having 95%.
T.51 L - 85%
RV 1.88 L - 88%.
RV/TLC ratio 42%
Diffusion capacity 12.08-61%.
DLCO/VA 98%.
-
No airflow obstruction. Preserved lung volumes. Moderately decreased diffusion capacity, corrects to normal when adjusted for alveolar volume.
Subjective Dataa
Subjective Data
Date of Service:
Date of Service: August 24, 2024
Subjective:
Patient is status post bypass. On Precedex, dobutamine, norepinephrine. Appears comfortable on volume-cycled ventilation. Episode of bradycardia noted with maps decreased to 55. Cardiology and CT surgery at bedside
Objective Data
Data Reviewed
Vital Signs / I&O / Oxygen:
Vital Signs
Temp Pulse Resp BP Pulse Ox
96.5 F L 99 12 98/63 100
08/24/24 16:00 08/24/24 16:05 08/24/24 16:05 08/24/24 16:01 08/24/24 16:05
Intake and Output
08/23/24 08/24/24 08/25/24
06:59 06:59 06:59
Intake Total 1200 / 1200 720 / 720 74.1 / 74.1
Output Total 100 / 100
Balance 1200 / 1200 720 / 720 -25.9 / -25.9
SaO2 [SIMV] 100
SaO2 100
Physical Exam
General: Comfortable and Other (IJ, A-line, chest tube)
HEENT: Normocephalic
Cardiovascular: S1-S2, Regular Rhythm, Murmur (n) and Rub (n)
Respiratory: Wheeze (n), Crackles (n), Rhonchi (n), Non-Labored Respirations, ET Tube and Chest Tube
GI: Soft
Neurology: Other (Opens eyes, nods appropriately)
Skin: Cyanosis (n), Jaundice (n) and Rash (n)
Labs/Micro/Reports
Laboratory Results
08/23/24 08/23/24 08/24/24
16:45 23:45 05:38
PT
INR
APTT 47.2 H 85.1 H 119.7 H
pH
pCO2
pO2
HCO3
O2 Delivery Level
08/24/24 08/24/24
15:43 15:44
PT 20.4 H
INR 1.72
APTT
pH 7.40
pCO2 36 H
pO2 198 H
HCO3 22.3
O2 Delivery Level
Microbiology
08/20/24 19:00 Urine Urine Culture - Final
No Significant Growth
--- NOTE | 2024-08-24 16:40 | W.PN.CARDCBS ---
Addendum entered and electronically signed by Dequan Douglas DO 08/24/24 16:59:
I saw and examined the patient.
The Genetic Physician's note was reviewed and I agree with the note.
Comment:
Plan:
-Presented to [facility] from OP [facility] cardiology office w/ abnormal cardiac cath and back pain.
-[facility] 06/2024 noted MV CAD and underwent CABG x3 (EARL to LAD, GSV to RI, GSV to PLB), ELAA w/ 40 mm AtriClip 08/24/2024.
Wean vent as per protocol
Remains sinus
Wean Dobutamine as bp will allow
CI 1.5, on dobutamine.
Cont DAPT with aspirin, plavix.
Continue high intensity statin. LDL 53
-Continue post-op care as per CT surgery.
Original Note:
Today's Communication / Plan
-
Continue post-op care
Impression / Plan
-
PCP: Dr. Fran Del Cid
Architectural Draftsperson: Dr. Liang
Impression:
Presented to ER from outpatient [place] cardiology office with abnormal cardiac cath and back pain 08/17/2024
NSTEMI, peak Troponin 0.243
CAD with MV CAD by cardiac cath at [facility] 06/2024
s/p CABG x3 (EARL to LAD, GSV to RI, GSV to PLB), ELAA w/ 40 mm AtriClip 08/24/2024
Ischemic CM EF 30 to 35% by echo 08/18/2024
Pulmonary nodule s/p bronchoscopy and biopsy was reportedly negative pathology for malignancy 06/2024
Patient reports that pathology report recommended repeat biopsy for monitoring
HTN
Hyperlipidemia
PAD s/p RLE INSECTICIDE MIXER and stent
Former smoker
Echo 08/18/2024: EF 30 to 35%, mid anteroseptal, mid septal, mid inferior and apical akinesis, stage I diastolic
Plan:
-Presented to [facility] from OP [facility] cardiology office w/ abnormal cardiac cath and back pain.
-[facility] 06/2024 noted MV CAD and underwent CABG x3 (EARL to LAD, GSV to RI, GSV to PLB), ELAA w/ 40 mm AtriClip 08/24/2024.
-Seen post-op, remains intubated.
-Post-op EKG overall stable, SR with anterior T wave inversions.
-Hgb stable at 10.1. Did get 1 unit PRBCs intra-op.
-CI 1.5, on dobutamine.
-Continue aspirin, plavix.
-Continue high intensity statin. LDL 53
-Continue post-op care.
HPI: Patient was seen as a new patient at [facility] office on 08/17/2024 due to history of abnormal cardiac cath and was referred to ER and is now admitted with consultation to cardiology. Patient used to work at [facility]. She had a shoulder injury
prompting an x-ray that showed a pulmonary nodule. She then followed up with a slab depiler operator out of [facility] and was recommended bronchoscopy with biopsy that was performed 06/2024. Patient reports that the pathology was negative for malignancy, but
that in either the bronchoscopy report or the pathology report it was recommended that she have a repeat bronchoscopy and biopsy in about 6 months. Patient reports that as part of the workup for bronchoscopy she had an ECG that was abnormal and had
cardiac cath performed by Dr. Yves Lund at [facility]. Patient recalls being told that her cardiac cath was abnormal and that the plan was for her to complete her bronchoscopy and biopsy and following that she would have an intervention so as to not
interrupt DAPT. Patient says that it has been 1 month since her bronchoscopy and so she followed up with her PCP who arranged for her to see a sheet metal shop supervisor at another group which was performed yesterday. Cardiac cath films were reviewed by
cardiology at the [facility] office and felt to be abnormal. Patient has possible angina symptoms of upper back tightness and has been having the symptoms at rest. Patient was then referred to ER. Serial troponin in the ER was elevated, peak thus far
0.155. Patient denies any chest or back pain at this time.
Progress Note - Architectural Draftsperson
Subjective
Date of Service: August 24, 2024
Objective
Labs:
Labs
Hgb 10.1 g/dL (12.0-16.0) L 08/24/24 15:43
Hct 30.0 % (37.0-47.0) L 08/24/24 15:43
Plt Count 122 10^3/uL (130-400) L D 08/24/24 15:43
PT 20.4 Sec (11.4-14.6) H 08/24/24 15:44
INR 1.72 08/24/24 15:44
APTT 119.7 Sec (23.4-35.0) H 08/24/24 05:38
Sodium 138 mmol/L (135-145) 08/24/24 05:38
Potassium 4.3 mmol/L (3.5-5.1) 08/24/24 05:38
BUN 6 mg/dl (7-17) L 08/24/24 05:38
Creatinine 0.6 mg/dL (0.6-1.0) 08/24/24 05:38
Glucose 102 mg/dl (70-99) H 08/24/24 05:38
Vital Signs and I&O:
Vital Signs
Temp Pulse Resp BP Pulse Ox
96.5 F L 99 12 98/63 100
08/24/24 16:00 08/24/24 16:05 08/24/24 16:05 08/24/24 16:01 08/24/24 16:05
Vital Signs
Temp Pulse Resp BP Pulse Ox
96.5 F L 99 12 98/63 100
08/24/24 16:00 08/24/24 16:05 08/24/24 16:05 08/24/24 16:01 08/24/24 16:05
Intake & Output
08/22/24 08/23/24 08/24/24 08/25/24
06:59 06:59 06:59 06:59
Intake Total 1200 / 1200 720 / 720 74.1 / 74.1
Output Total 100 / 100
Balance 1200 / 1200 720 / 720 -25.9 / -25.9
[2024-08-24 16:56] LABS: Glucose - Point of Care 127 mg/dl (70-99)
[2024-08-24] MEDS: CALCIUM CHLORIDE 10% SYRINGE 500 MG IV (17:00)
[2024-08-24 17:12] LABS: Blood Urea Nitrogen 6 mg/dl (7-17); Estimated Creatinine Clearance 65 ml/min; Glucose 126 mg/dl (70-99); Magnesium 3.1 mg/dl (1.6-2.3)
[2024-08-24 17:44] LABS: Mixed Venous O2 Saturation 47.1 %
[2024-08-24 17:49] LABS: Hematocrit 29.8 % (37.0-47.0); Hemoglobin 9.6 g/dL (12.0-16.0); Mean Corp Hgb Conc. 32.2 g/dL (33.0-37.0); Mean Corpuscular Hgb 31.5 pg (27.0-31.0); Mean Corpuscular Volume 97.7 fL (81.0-99.0); Mean Platelet Volume 11.8 fL (7.4-10.4); Platelet Count 132 10^3/uL (130-400); Red Blood Cell Count 3.05 10^6/uL (4.20-5.40); White Blood Cell Count 15.6 10^3/uL (4.8-10.8)
[2024-08-24 17:50] LABS: B.E. - POC -5.1 mmol/L; Blood Urea Nitrogen - POC 7 mg/dl (3-120); Chloride - POC 109 mmol/L (96-111); Creatinine - POC 0.73 mg/dl (0.3-1.0); Glucose - POC 229 mg/dl (70-99); HCO3 - POC 22 mmol/L (21-28); Hematocrit - POC 28 % PCV (37-47); Hemodilution- POC No; Hemoglobin Calculated - POC 9.6; Lactate - POC 3.76 mmol/L (0.36-0.75); O2 Saturation %Calculated-POC 98.9 % (94-98); PCO2 - POC 52 mmHg (35-48); PO2 - POC 150 mmHg (83-108); Potassium - POC 4.8 mmol/L (3.5-5.1); Sodium - POC 139 mmol/L (136-145); Specimen Type - POC Arterial; pH - POC 7.24 (7.35-7.45)
[2024-08-24] MEDS: SODIUM BICARBONATE 25 MEQ IV (17:56)
[2024-08-24 17:58] LABS: ALT (SGPT) 28 U/L (0-35); AST (SGOT) 58 U/L (14-36); Albumin 3.2 g/dl (3.5-5.0); Alkaline Phosphatase 41 U/L (38-126); Blood Urea Nitrogen 7 mg/dl (7-17); Carbon Dioxide 21 mmol/L (22-30); Chloride 109 mmol/L (98-107); Estimated Creatinine Clearance 56 ml/min; Glucose 205 mg/dl (70-99); Potassium 4.6 mmol/L (3.5-5.1); Sodium 138 mmol/L (135-145); Total Bilirubin 1.2 mg/dl (0.2-1.3); Total Protein 5.1 g/dl (6.3-8.2); eGFR > 60.00
[2024-08-24 18:20] LABS: B.E. - POC -2.6 mmol/L; Blood Urea Nitrogen - POC 8 mg/dl (3-120); Chloride - POC 108 mmol/L (96-111); Glucose - POC 229 mg/dl (70-99); HCO3 - POC 25 mmol/L (21-28); Hematocrit - POC 28 % PCV (37-47); Hemodilution- POC No; Hemoglobin Calculated - POC 9.6; Ionized Calcium - POC 1.46 mmol/L (1.15-1.33); Lactate - POC 4.01 mmol/L (0.36-0.75); O2 Saturation %Calculated-POC 99.7 % (94-98); PCO2 - POC 55 mmHg (35-48); PO2 - POC 221 mmHg (83-108); Sodium - POC 142 mmol/L (136-145); Specimen Type - POC Arterial; pH - POC 7.26 (7.35-7.45)
--- NOTE | 2024-08-24 18:24 | PTCARENOTE ---
cardiac rhythm changed from sinus rhythm w HR 90-100 to junctional rhythm w HR 37-50, hypotensive w change. Levophed dose adjusted to support BP, LR bolus as ordered. Dr. Liang at bedside. Repeat EKG obtained. Epi infusion initiated. Dr. Gould at
bedside. STAT labs & CXR obtained and treated as ordered. RT made aware of ordered vent changes. Pt's family updated.
[2024-08-24 19:15] LABS: Glucose - Point of Care 184 mg/dl (70-99)
[2024-08-24] MEDS: SENOKOT-S PO (19:26)
--- NOTE | 2024-08-24 19:27 | W.PN.CT ---
Assessment / Plan
-
Assessment:
-S/P Median sternotomy/CABG x 3 (EARL to LAD, GSV to RI, GSV to RPLB)/Endoscopic harvest/prep of RLE GSV/ELAA (40mm AtriClip), by Dr. Gould, 08/24/24, pod#1
-Severe 3v CAD
-NSTEMI (peak trop 0.243)
-ICM
-LVEF 30-35%, 40-45 postop per intraop GLADYS
-Mild MR
-Plavix washout
-RUL Lung Nodule S/P bronchoscopy and biopsy, 07/31/2024 (Benign)
-Former tobacco use (quit 2005)
-HTN
-HLD
-Severe PAD S/p RLE LOG SKIDDER and stent x 2 (on Plavix)
-Anemia
-S/P hysterectomy
-S/p cholecystectomy
-Acute postop blood loss Anemia on chronic anemia(transfused 1u PRBC intraop)
-Acute postop atelectasis
-Acute postop hypovolemia with subsequent hypervolemia
-Acute postop bradycardia (30's)/junctional rhythm
-Acute postop hypotension, SBP 60's
Plan:
-No major issues overnight. Hemodynamically and neurologically intact
-Pt did have an episode of bradycardia/junctional rhythm (30's) and hypotension (SBP 60's) immediately postop while on Dobutamine @ 4 and Levophed @ 2, prompting increase in Levophed and addition of Epinephrine gtt
and discontinuation of dobutamine gtt.
-Pt is currently on Levophed @ 10, Epinephrine @ 4, Dobutamine @ 1 and insulin gtt per protocol
-Pt was successfully extubated this AM @
-Last CI, MVO2 , U/O since OR
-Chest tube output: 2meds , R/L pleurals . CXR looks clear to my eyes without significant atelectasis/pleural effusion, no ptx. F/u official report
-Cont. current meds (ASA, Plavix, Crestor, Amiodarone, Lopressor, insulin gtt)
-Keep swan and a-line while on Levophed, Epinephrine, and dobutamine
-Keep sun for accurate I/O's while on current pressors
-Telemetry phase once off pressors and insulin gtt
-Maintain cordis
-Encourage use of IS
-OOB into chair/Ambulate
Subjective
-
Date of Service: August 24, 2024
Objective Data
-
PT 20.4 Sec (11.4-14.6) H 08/24/24 15:44
INR 1.72 08/24/24 15:44
APTT 119.7 Sec (23.4-35.0) H 08/24/24 05:38
Vital Signs
Vital Signs
Temp Pulse Resp BP Pulse Ox
99.8 F 52 19 94/45 100
08/24/24 19:00 08/24/24 19:05 08/24/24 19:05 08/24/24 19:00 08/24/24 19:05
CT Intake/Output/Weight
08/24/24 08/24/24 08/25/24
06:59 18:59 06:59
Intake Total 1015.6 / 1101.6 86 / 1101.6
Output Total 330 / 390 60 / 390
Balance 685.6 / 711.6 26 / 711.6
SaO2: 100
[2024-08-24 19:46] LABS: B.E. -7.5 mmol/L; HCO3 17.1 mmol/L (21-28); Ionized Calcium 1.37 mMOL/L (1.15-1.33); O2 Saturation % 99.8 % (94-98); PCO2 31 mmHg (32-35); PO2 254 mmHg (83-108); pH 7.35 (7.35-7.45)
[2024-08-24 19:53] LABS: Mixed Venous O2 Saturation 50.6 %
[2024-08-24 19:55] LABS: Hematocrit 29.3 % (37.0-47.0); Hemoglobin 10.1 g/dL (12.0-16.0); Platelet Count 95 10^3/uL (130-400)
[2024-08-24 19:56] LABS: INR 1.46
[2024-08-24 19:57] LABS: APTT 24.5 Sec (23.4-35.0)
[2024-08-24 20:00] LABS: Blood Urea Nitrogen 9 mg/dl (7-17); Carbon Dioxide 18 mmol/L (22-30); Chloride 109 mmol/L (98-107); Estimated Creatinine Clearance 43 ml/min; Glucose 158 mg/dl (70-99); Potassium 4.5 mmol/L (3.5-5.1); Sodium 138 mmol/L (135-145); eGFR > 60.00
[2024-08-24 20:02] LABS: Glucose - Point of Care 127 mg/dl (70-99)
[2024-08-24 20:10] LABS: Lactic Acid 4.9 mmol/L (0.7-2.0)
[2024-08-24] MEDS: LEVOPHED 250 IV (20:14)
[2024-08-24 20:19] LABS: Mean Corp Hgb Conc. 34.2 g/dL (33.0-37.0); Mean Corpuscular Hgb 32.4 pg (27.0-31.0); Mean Corpuscular Volume 94.6 fL (81.0-99.0); Mean Platelet Volume 12.4 fL (7.4-10.4); Red Blood Cell Count 3.12 10^6/uL (4.20-5.40); Red Cell Dist. Width 14.4 % (11.5-14.5); White Blood Cell Count 16.1 10^3/uL (4.8-10.8)
[2024-08-24] MEDS: SODIUM BICARBONATE 50 MEQ IV ×2 (20:25)
[2024-08-24] MEDS: NSS 250 IV ×2 (20:53→21:37)
[2024-08-24 21:11] LABS: Magnesium 2.7 mg/dl (1.6-2.3)
[2024-08-24] MEDS: ASPIRIN 300 MG RECTAL (21:12)
[2024-08-24] MEDS: ANCEF 5 IV (21:12)
--- NOTE | 2024-08-24 21:20 | PTCARENOTE ---
Pt received from kulwinder RN. Bedside report. Pt is intubated but following simple commands, opens eyes spontaneously, and MANZO. RASS -1. CPOT 0. Pt is junctional on the tele monitor. HR 50s. Audible heart tones. Pt w/ pads on and hooked up to zole
monitor on code cart. BPs 90-100s/40s. PAPs 20-30s/teens. CVP 10-16. CI<2 - CT surgery team aware and trending MVO2s. Weak DP pulses. No edema. Pt w/ ETT #8, 23cm @ right lip. Vent settings as documented in the worklist. POX 100%. Lung sounds
audible. Mediastinal CTx2 and R/L pleural CT to -20 suction, no airleak noted, and output WNL. Abdomen soft. Hypoactive BS. Alonso catheter C/D/I and draining yellow urine. Right IJ cordis w/ SWAN intact. L radial arterial line intact. POVx2 intact.
All lines leveled, zeroed, and flushed. Sternal Aquacel intact. Right leg avis bandage C/D/I. Levo, insulin, and Epi infusing. Ordered labs drawn and sent. Sodium bicarb x2 / 500 NSS bolus / rectal aspirin administered as ordered. See worklist for
full nursing assessment and interventions. Call graham within reach.
[2024-08-24 22:06] LABS: Glucose - Point of Care 103 mg/dl (70-99)
[2024-08-24 22:12] LABS: B.E. -1.7 mmol/L; Ionized Calcium 1.26 mMOL/L (1.15-1.33); PCO2 38 mmHg (32-35); PO2 169 mmHg (83-108); Potassium 3.7 mMOL/L (3.5-5.1); pH 7.39 (7.35-7.45)
[2024-08-24] MEDS: REGLAN 10 MG IV (23:04)
[2024-08-25] VITALS (27 sets, daily range): BP systolic 62–142; BP diastolic 31–73; BMI 18.0
[2024-08-25 00:01] LABS: Glucose - Point of Care 88 mg/dl (70-99)
--- NOTE | 2024-08-25 01:03 | W.PN.CT ---
Today's Communication / Plan
-
Plan:
-No major issues overnight. Hemodynamically and neurologically intact
-Pt did have an episode of bradycardia/junctional rhythm (30's) and hypotension (SBP 60's) immediately postop while on Dobutamine @ 4 and Levophed @ 2, prompting increase in Levophed and addition of Epinephrine gtt,
and discontinuation of dobutamine gtt.
-Pt is currently on Levophed @ 10, Epinephrine @ 4, Dobutamine @ 2 (resumed at 2300 d/t drop is urine output and HR 40's) and insulin gtt per protocol
-Current rhythm is bradycardia/junctional @ 50 bpm. Will make NPO for possible PPM placement. EP/Cardiology to evaluate
-Placed Amiodarone and BB on hold
-Pt was successfully extubated this AM @ 0147
-MVO2 57.3%, U/O since OR 550 mL
-Chest tube output: 2meds 115/140, R/L pleurals 180/220. CXR looks clear to my eyes without significant atelectasis/pleural effusion, no ptx. F/u official report
-Cont. current meds (ASA, Plavix, Crestor, Amiodarone/Lopressor- on hold, insulin gtt)
-Keep swan and a-line while on Levophed, Epinephrine, and dobutamine
-Keep sun for accurate I/O's while on current pressors/inotrope, noted postop NAVEEN
-Telemetry phase once off pressors and insulin gtt
-Maintain cordis
-Encourage use of IS
-OOB into chair/Ambulate
Assessment / Plan
-
Assessment:
-S/P Median sternotomy/CABG x 3 (EARL to LAD, GSV to RI, GSV to RPLB)/Endoscopic harvest/prep of RLE GSV/ELAA (40mm AtriClip), by Dr. Gould, 08/24/24, pod#1
-Severe 3v CAD
-NSTEMI (peak trop 0.243)
-ICM
-LVEF 30-35%, 40-45 postop per intraop GLADYS
-Mild MR
-Plavix washout
-RUL Lung Nodule S/P bronchoscopy and biopsy, 07/31/2024 (Benign)
-Former tobacco use (quit 2005)
-HTN
-HLD
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
-Anemia
-S/P hysterectomy
-S/p cholecystectomy
-Acute postop blood loss Anemia on chronic anemia(transfused 1u PRBC intraop)
-Acute postop atelectasis
-Acute postop hypovolemia with subsequent hypervolemia
-Acute postop bradycardia (30's)/junctional rhythm
-Acute postop hypotension, SBP 60's
-Acute postop NAVEEN
Discussed patient care with: Cardiology, Nursing, Respiratory Therapy, Pharmacy and Care Team
Subjective
Procedure
-S/P Median sternotomy/CABG x 3 (EARL to LAD, GSV to RI, GSV to RPLB)/Endoscopic harvest/prep of RLE GSV/ELAA (40mm AtriClip), by Dr. Gould, 08/24/24
-
Date of Service: August 25, 2024
Pt c/o mild incisional pain, otherwise feels well
Objective Data
-
PT 18.0 Sec (11.4-14.6) H 08/24/24 19:36
INR 1.46 08/24/24 19:36
APTT 24.5 Sec (23.4-35.0) 08/24/24 19:36
Vital Signs
Vital Signs
Temp Pulse Resp BP Pulse Ox
100 F 53 16 92/48 100
08/25/24 00:00 08/25/24 00:00 08/25/24 00:00 08/25/24 00:00 04/01/25 00:46
CT Intake/Output/Weight
08/24/24 08/24/24 08/25/24
06:59 18:59 06:59
Intake Total 1015.6 / 2076.9 1061.3 / 2076.9
Output Total 330 / 620 290 / 620
Balance 685.6 / 1456.9 771.3 / 1456.9
SaO2: 98 (4L)
Physical Exam
-
General: Awake, Oriented and AOx3
Cardiovascular: Regular rate & rhythm, No Murmurs, Rub (likely friction rub from chest tubes) and No Gallop
Respiratory: Decreased Breath Sounds (at bases, otherwise clear )
Sternum: Stable
Incision: Clean, Dry, Intact and Dressing Intact
Extremities: Other (+trace edema)
Data Reviewed
-
Lab Results: Results Reviewed
Medications: Active Meds Reviewed
Chest X-Ray: Report Reviewed and Image Reviewed
ECG: Report Reviewed and Image Reviewed
[2024-08-25 01:30] LABS: HCO3 22.2 mmol/L (21-28); O2 Saturation % 99.7 % (94-98); PCO2 44 mmHg (32-35); PO2 170 mmHg (83-108); Potassium 4.9 mMOL/L (3.5-5.1); pH 7.31 (7.35-7.45)
--- NOTE | 2024-08-25 01:30 | PTCARENOTE ---
Pt reassessed. Remains intubated. Pt opens eyes spontaneously, MANZO, and follows simple commands. Junctional on the tele monitor. HR high 40s - 50s. Pt remains attached to code cart. BP 90-110s/40s. CVP ~6-10. PAP 20s/teens. CI <2. Pt currently on
CPAP. POX 100%. See worklist for full vent settings. CT assessment unchanged. Alonso catheter intact and draining yellow urine. All surgical sites stable. SWAN and a-line maintained. All lines leveled, zeroed, and flushed. Dobutamine restarted per
CTPA. Epi and levo infusing as ordered. Glycemic protocol followed. Pt denies pain. See worklist for all nursing interventions.
[2024-08-25 01:32] LABS: O2 Therapy cpap
[2024-08-25 01:32] LABS: Mixed Venous O2 Saturation 51.1 %
[2024-08-25] MEDS: SODIUM BICARBONATE 50 MEQ IV ×3 (01:42→14:58)
--- NOTE | 2024-08-25 01:56 | PTCARENOTE ---
Per CTPA - OKAY to extubate. Pt extubated to 6 L NC by respiratory @0145. POX 100%. Pt oriented to person, place, and time. IS 750. Call graham within reach.
--- NOTE | 2024-08-25 01:59 | RESPNOTE ---
pt extubated, at 0145, to 6 LPM NC. + vocalization and -stridor. will monitor.
[2024-08-25 02:08] LABS: Glucose - Point of Care 134 mg/dl (70-99)
[2024-08-25] MEDS: NSS 250 IV (02:12)
[2024-08-25] MEDS: LEVOPHED 250 IV ×2 (02:32→12:08)
[2024-08-25 04:29] LABS: Glucose - Point of Care 142 mg/dl (70-99)
--- NOTE | 2024-08-25 04:35 | PTCARENOTE ---
Pt reassessed. Junctional rhythm on the tele monitor. HR high 40s-50s. BP 90-110s/40s. CVP ~6. PAP 20s/10s. Pt w/ pads on and connected to NOTIK machine. Pt on 6 L NC. POX 100%. CTx4 assessment unchanged. Alonso catheter intact and draining
yellow urine ~20-30 ml/hr. SWAN and a-line maintained. All lines leveled, zeroed, and flushed. Pt repositioned in bed. EKG obtained and labs sent. Glycemic protocol followed. Dobut, levo, and epi infusing at this time. Pt tolerating ice chips. No
c/o pain. Call graham within reach.
[2024-08-25 04:44] LABS: Mixed Venous O2 Saturation 57.3 %
[2024-08-25 05:02] LABS: Lactic Acid 4.7 mmol/L (0.7-2.0)
[2024-08-25 05:08] LABS: Hematocrit 28.4 % (37.0-47.0); Hemoglobin 9.5 g/dL (12.0-16.0); Mean Corp Hgb Conc. 33.5 g/dL (33.0-37.0); Mean Corpuscular Volume 95.6 fL (81.0-99.0); Platelet Count 130 10^3/uL (130-400); Red Blood Cell Count 2.97 10^6/uL (4.20-5.40); Red Cell Dist. Width 14.8 % (11.5-14.5); White Blood Cell Count 15.5 10^3/uL (4.8-10.8)
[2024-08-25 05:31] LABS: Blood Urea Nitrogen 16 mg/dl (7-17); Calcium 9.1 mg/dl (8.4-10.2); Carbon Dioxide 22 mmol/L (22-30); Chloride 112 mmol/L (98-107); Estimated Creatinine Clearance 35 ml/min; Glucose 143 mg/dl (70-99); Magnesium 2.6 mg/dl (1.6-2.3); Potassium 4.4 mmol/L (3.5-5.1); Sodium 145 mmol/L (135-145); eGFR 53.39
[2024-08-25] MEDS: TYLENOL 1000 MG PO ×2 (05:55→13:08)
[2024-08-25] MEDS: MYLICON 80 MG PO (05:55)
[2024-08-25] MEDS: ANCEF 5 IV ×2 (05:55→13:08)
[2024-08-25 06:18] LABS: Glucose - Point of Care 100 mg/dl (70-99)
--- NOTE | 2024-08-25 07:51 | W.PN.INTV ---
Today's Communication / Plan
Recommendations
Pressors per CT surgery
Bradycardia noted, patient without symptoms
Questionable junctional rhythm
Remains on insulin drip
Being evaluated for possible pacemaker. Correspondence
Reviewed tobacco cessation
Reviewed importance of follow-up regarding right upper lobe nodule
Assessment
-
74-year-old woman with past medical history noted. Transferred from [facility] for evaluation of CABG. On CAT scan she has a right upper lobe groundglass opacity status post robotic bronchoscopy tissue sampling at -07/31 that was
benign-atypical cells found.
We were consulted on 08/19/2024 for preop pulmonary assessment.
Pt is now s/p CABG
-
S/p CAB x 3 on 08/24/24
Post GLADYS EF 40%
On norepinephrine, dobutamine, Precedex, insulin
Right upper lobe pulmonary nodule-groundglass
CT chest 08/18/2024: No acute disease of the chest. Moderate atherosclerosis. Right upper lobe groundglass/minimal solid about 4 mm component with cystic component opacity-1.6X 1.[address] chest 07/31/2024: Reported 2.3X 1.1 cm groundglass nodule on the right upper lobe with 4 mm solid component.
Mild paraseptal emphysema
Multivessel coronary artery disease-ischemic cardiomyopathy-unstable angina
Echocardiogram 08/18/2024: Ejection fraction 30 to 35%, mid anteroseptal, mid septal and mid inferior and apical akinesis, stage I diastolic dysfunction.
-
Conditions present prior admission:
Ischemic cardiomyopathy ejection fraction 30 to 35% by echocardiogram
Multivessel coronary artery disease by cath 06/2024
Pulmonary groundglass nodule status post bronchoscopy and biopsy 07/2024
Benign. Minimal atypical cells-follows up with Dr. Holt
Hypertension
Hyperlipidemia
Peripheral arterial disease status post right lower extremity stent
Former smoker-quit in 2005
Assessment and plan:
At this time, patient appears critically ill but comfortable, extubated without complaints
Remains on norepinephrine, epinephrine, dobutamine
Postoperative chest x-ray adequate
bradycardia noted since yesterday, patient without symptoms postoperative EKG with sinus bradycardia,
Patient heart rate decreased upon arrival, mean pressures 55
Moving forward
Continue with management per CT surgery
Possible pacemaker placement later today per correspondence
Questionable junctional rhythm
EKG with sinus rhythm per discussion with cardiology
Patient on epinephrine, norepinephrine, dobutamine
Continue with pressors per CT surgery
EP/cardiology following
CT drainage minimal
CXR/06/20 without acute findings
Postoperative anemia noted, hemoglobin 8.[address] surgery protocol
Chest tube output minimal
Blood sugars noted, remains on insulin drip
Patient admits to stopping smoking
Right upper lobe lung nodule differential diagnosis includes adenocarcinoma in situ versus scarring.
As noted status post robotic bronchoscopy 07/31/2024 at [facility]-minimal atypical cells.
PET/CT reportedly showed no significant FDG avidity -Plan in the outpatient setting was to evaluate CT surgery in the future versus repeating biopsy. Patient is aware of this plan
It is encouraging that in our CAT scan here the size of the lung nodule decreased from 2.3 to 1.6 cm. Solid component of 4 mm remains stable.
She will continue to follow-up with Dr. Holt at [facility] for this.
Reviewed with critical care nursing
TCCT 31 min
Data
Pulmonary function testing 08/20/2024:
FEV1/FVC ratio 70%, FEV1 1.98 L - 86%, FVC 2.82 L having 95%.
T.51 L - 85%
RV 1.88 L - 88%.
RV/TLC ratio 42%
Diffusion capacity 12.08-61%.
DLCO/VA 98%.
-
No airflow obstruction. Preserved lung volumes. Moderately decreased diffusion capacity, corrects to normal when adjusted for alveolar volume.
Subjective Dataa
Subjective Data
Date of Service:
Date of Service: August 25, 2024
Subjective:
Patient extubated without difficulty. Remains critically ill on pressors for bradycardia, hypotension. Denies shortness of breath, nausea, abdominal pain. She denies lightheadedness, dizziness. She has some mild back pain which is chronic
according to her
Objective Data
Data Reviewed
Vital Signs / I&O / Oxygen:
Vital Signs
Temp Pulse Resp BP Pulse Ox
97.8 F 50 16 109/38 100
08/25/24 06:00 08/25/24 07:05 08/25/24 07:05 08/25/24 07:00 08/25/24 07:05
Intake and Output
08/24/24 08/25/24 08/26/24
06:59 06:59 06:59
Intake Total 720 / 720 2564.6 / 2564.6
Output Total 920 / 920
Balance 720 / 720 1644.6 / 1644.6
SaO2 [CPAP/PSV] 100
SaO2 [SIMV] 100
SaO2 100
Nasal Cannula flow liters per 2
minute
Physical Exam
General: Comfortable and Other (IJ, A-line, chest tube)
HEENT: Normocephalic and Anicteric
Cardiovascular: S1-S2, Regular Rhythm, Murmur (n) and Rub (n)
Respiratory: Wheeze (n), Crackles (n), Rhonchi (n), Non-Labored Respirations, Stridor (n) and Chest Tube
GI: Soft and Non Distended
Neurology: Awake, Alert and No Motor Deficits (Moves all extremities)
Skin: Cyanosis (n), Jaundice (n) and Rash (n)
Labs/Micro/Reports
Lab Data
08/25/24 04:26
Laboratory Results
08/24/24 08/24/24 08/24/24
15:43 15:44 17:43
PT 20.4 H
INR 1.72
APTT
pH 7.40 Cancelled
pCO2 36 H Cancelled
pO2 198 H Cancelled
HCO3 22.3 Cancelled
O2 Delivery Level Cancelled
08/24/24 08/24/24 08/24/24
18:15 19:36 21:40
PT 18.0 H
INR 1.46
APTT 24.5
pH Cancelled 7.35 Cancelled
pCO2 Cancelled 31 L Cancelled
pO2 Cancelled 254 H Cancelled
HCO3 Cancelled 17.1 L Cancelled
O2 Delivery Level Cancelled Cancelled
08/24/24 08/25/24
22:04 01:18
PT
INR
APTT
pH 7.39 7.31 L
pCO2 38 H 44 H
pO2 169 H 170 H
HCO3 23.0 22.2
O2 Delivery Level cpap
Microbiology
08/20/24 19:00 Urine Urine Culture - Final
No Significant Growth
[2024-08-25 08:11] LABS: Glucose - Point of Care 110 mg/dl (70-99)
[2024-08-25] MEDS: ADRENALIN 250 IV (08:14)
[2024-08-25] MEDS: BACTROBAN 2% OINTMENT 1 APPLIC NASAL ×2 (08:16→19:42)
[2024-08-25] MEDS: LOW STRENGTH ASPIRIN 81 MG PO (08:32)
[2024-08-25] MEDS: FEOSOL 325 MG PO (08:32)
[2024-08-25] MEDS: SENOKOT-S 1 TABLET PO ×2 (08:32→19:40)
[2024-08-25] MEDS: VITAMIN C 500 MG PO (08:33)
[2024-08-25] MEDS: MAGNESIUM OXIDE 500 MG PO (08:33)
[2024-08-25] MEDS: PROTONIX 40 MG PO (08:33)
[2024-08-25] MEDS: NEURONTIN 100 MG PO ×3 (08:33→22:02)
[2024-08-25] MEDS: LIDOCAINE 4% PATCH 1 PATCH TOPICAL (08:33)
[2024-08-25] MEDS: PLAVIX 75 MG PO (08:33)
[2024-08-25] MEDS: ALBUMIN 5% 250 IV (08:42)
[2024-08-25] MEDS: ZOFRAN 4 MG IV (08:42)
[2024-08-25 09:15] LABS: B.E. -4.4 mmol/L; HCO3 21.7 mmol/L (21-28); Ionized Calcium 1.22 mMOL/L (1.15-1.33); PCO2 43 mmHg (32-35); PO2 96 mmHg (83-108); Potassium 4.4 mMOL/L (3.5-5.1); Sodium 140 mMOL/L (136-145); pH 7.31 (7.35-7.45)
[2024-08-25 09:19] LABS: Mixed Venous O2 Saturation 37.6 %
[2024-08-25 09:35] LABS: Lactic Acid 5.9 mmol/L (0.7-2.0)
[2024-08-25 09:52] LABS: B.E. - POC -0.4 mmol/L; Blood Urea Nitrogen - POC 18 mg/dl (3-120); Chloride - POC 110 mmol/L (96-111); Glucose - POC 101 mg/dl (70-99); HCO3 - POC 25 mmol/L (21-28); Hematocrit - POC 28 % PCV (37-47); Hemodilution- POC Yes; Hemoglobin Calculated - POC 9.4; Ionized Calcium - POC 1.21 mmol/L (1.15-1.33); Lactate - POC 5.05 mmol/L (0.36-0.75); PCO2 - POC 42 mmHg (35-48); PO2 - POC 68 mmHg (83-108); Potassium - POC 3.9 mmol/L (3.5-5.1); Sodium - POC 146 mmol/L (136-145); Specimen Type - POC Arterial; pH - POC 7.38 (7.35-7.45)
[2024-08-25 09:58] LABS: Mixed Venous O2 Saturation 39.6 %
[2024-08-25 10:01] LABS: Hematocrit 26.6 % (37.0-47.0); Hemoglobin 8.7 g/dL (12.0-16.0); Mean Corp Hgb Conc. 32.7 g/dL (33.0-37.0); Mean Corpuscular Hgb 31.4 pg (27.0-31.0); Mean Platelet Volume 12.5 fL (7.4-10.4); Platelet Count 105 10^3/uL (130-400); Red Blood Cell Count 2.77 10^6/uL (4.20-5.40); Red Cell Dist. Width 14.8 % (11.5-14.5); White Blood Cell Count 12.9 10^3/uL (4.8-10.8)
[2024-08-25 10:16] LABS: Blood Urea Nitrogen 18 mg/dl (7-17); Carbon Dioxide 20 mmol/L (22-30); Chloride 110 mmol/L (98-107); Estimated Creatinine Clearance 34 ml/min; Glucose 121 mg/dl (70-99); Potassium 4.5 mmol/L (3.5-5.1); Sodium 144 mmol/L (135-145); eGFR 48.09
[2024-08-25 11:48] LABS: B.E. - POC 6.1 mmol/L; Glucose - POC 62 mg/dl (70-99); HCO3 - POC 30 mmol/L (21-28); Hematocrit - POC 23 % PCV (37-47); Hemodilution- POC Yes; Hemoglobin Calculated - POC 7.9; Ionized Calcium - POC 0.97 mmol/L (1.15-1.33); Lactate - POC < 0.30 mmol/L (0.36-0.75); PCO2 - POC 37 mmHg (35-48); PO2 - POC 497 mmHg (83-108); POC Comment CPB; Potassium - POC 4.5 mmol/L (3.5-5.1); Sodium - POC 136 mmol/L (136-145); Specimen Type - POC Arterial; pH - POC 7.51 (7.35-7.45)
[2024-08-25 11:48] LABS: B.E. - POC -2.3 mmol/L; Glucose - POC 100 mg/dl (70-99); HCO3 - POC 24 mmol/L (21-28); Hematocrit - POC 28 % PCV (37-47); Hemodilution- POC No; Hemoglobin Calculated - POC 9.4; Ionized Calcium - POC 1.24 mmol/L (1.15-1.33); Lactate - POC < 0.30 mmol/L (0.36-0.75); PCO2 - POC 49 mmHg (35-48); PO2 - POC 485 mmHg (83-108); Potassium - POC 3.6 mmol/L (3.5-5.1); Sodium - POC 140 mmol/L (136-145); Specimen Type - POC Arterial; pH - POC 7.31 (7.35-7.45)
[2024-08-25 11:48] LABS: B.E. - POC 5.1 mmol/L; Glucose - POC 190 mg/dl (70-99); HCO3 - POC 29 mmol/L (21-28); Hematocrit - POC 26 % PCV (37-47); Hemodilution- POC Yes; Hemoglobin Calculated - POC 8.7; Ionized Calcium - POC 1.04 mmol/L (1.15-1.33); Lactate - POC < 0.30 mmol/L (0.36-0.75); PCO2 - POC 37 mmHg (35-48); PO2 - POC 443 mmHg (83-108); POC Comment CPB; Potassium - POC 4.7 mmol/L (3.5-5.1); Sodium - POC 136 mmol/L (136-145); Specimen Type - POC Arterial; pH - POC 7.49 (7.35-7.45)
[2024-08-25 11:49] LABS: B.E. - POC 1.9 mmol/L; Glucose - POC 143 mg/dl (70-99); HCO3 - POC 26 mmol/L (21-28); Hematocrit - POC 29 % PCV (37-47); Hemodilution- POC Yes; Hemoglobin Calculated - POC 9.7; Ionized Calcium - POC 1.33 mmol/L (1.15-1.33); Lactate - POC < 0.30 mmol/L (0.36-0.75); PCO2 - POC 37 mmHg (35-48); PO2 - POC 499 mmHg (83-108); POC Comment POST; Potassium - POC 4.3 mmol/L (3.5-5.1); Sodium - POC 140 mmol/L (136-145); Specimen Type - POC Arterial; pH - POC 7.46 (7.35-7.45)
[2024-08-25] MEDS: NSS IV (13:05)
[2024-08-25] MEDS: LASIX 40 MG IV (13:17)
[2024-08-25 14:10] LABS: Glucose - Point of Care 78 mg/dl (70-99)
[2024-08-25] MEDS: LR 250 ML IV (14:18)
[2024-08-25 14:20] LABS: Mixed Venous O2 Saturation 52.7 %
[2024-08-25] MEDS: CALCIUM CHLORIDE 10% SYRINGE 60 MG IV (14:36)
--- NOTE | 2024-08-25 14:39 | PTCARENOTE ---
1 unit PRBCs infused without issue. Weaned to RA. LR bolus infusing, levo weaning up and down to keep MAP 65. decreased urine output. SHIFT PRODUCTION ASSOCIATE aware. IV lasix ordered and given. bladder scanned for 4ml. will continue to monitor
[2024-08-25 14:41] LABS: Lactic Acid 4.5 mmol/L (0.7-2.0)
[2024-08-25 14:43] LABS: B.E. - POC -2.9 mmol/L; Blood Urea Nitrogen - POC 19 mg/dl (3-120); Chloride - POC 104 mmol/L (96-111); Creatinine - POC 1.29 mg/dl (0.3-1.0); Glucose - POC 128 mg/dl (70-99); HCO3 - POC 22 mmol/L (21-28); Hematocrit - POC 30 % PCV (37-47); Hemodilution- POC Yes; Hemoglobin Calculated - POC 10.3; Ionized Calcium - POC 1.11 mmol/L (1.15-1.33); Lactate - POC 5.03 mmol/L (0.36-0.75); PCO2 - POC 36 mmHg (35-48); PO2 - POC 64 mmHg (83-108); Potassium - POC 4.4 mmol/L (3.5-5.1); Sodium - POC 138 mmol/L (136-145); Specimen Type - POC Arterial; pH - POC 7.38 (7.35-7.45)
--- NOTE | 2024-08-25 15:37 | W.PN.CARDCBS ---
Addendum entered and electronically signed by Arcadio Nguyễn MD 08/25/24 15:56:
Reviewed patient's afternoon ECG. Currently she is hemodynamically stable on stable levels of pressor support. She does have accelerated junctional rhythm at 68 bpm which is hemodynamically tolerated. Her echocardiogram from August 18 is notable
for an ejection fraction of 30 to 35% and since then she has had three-vessel bypass. Presumably with a tincture of time her sinus node will recover and agree with holding amiodarone and/or beta-jay therapy. I am suspicious that she will not
require permanent pacing. Would consider repeat echocardiogram over the next 24 to 40 hours to demonstrate whether she is already having improvement in her ejection fraction as that may affect type of device implanted. We will follow with you
daily. Discussed my impressions with Dr. Gould and CT surgical team.
Original Note:
Today's Communication / Plan
-
RECOMMENDATIONS:
-No current indication for pacemaker. William/Junctional rhythm was immediately post op
-Wean pressors as tolerated.
Impression / Plan
-
PCP: Dr. Fran Del Cid
Push Bench Operator Helper: Dr. Liang
Impression:
Presented to ER from outpatient [place] cardiology office with abnormal cardiac cath and back pain 08/17/2024
NSTEMI, peak Troponin 0.243
CAD with MV CAD by cardiac cath at [facility] 06/2024
s/p CABG x3 (EARL to LAD, GSV to RI, GSV to PLB), ELAA w/ 40 mm AtriClip 08/24/2024
Ischemic CM EF 30 to 35% by echo 08/18/2024
Pulmonary nodule s/p bronchoscopy and biopsy was reportedly negative pathology for malignancy 06/2024
Patient reports that pathology report recommended repeat biopsy for monitoring
HTN
Hyperlipidemia
PAD s/p RLE DIRECTOR DENTAL SERVICES and stent
Former smoker
Echo 08/18/2024: EF 30 to 35%, mid anteroseptal, mid septal, mid inferior and apical akinesis, stage I diastolic
Plan:
-Presented to [facility] from OP [facility] cardiology office w/ abnormal cardiac cath and back pain.
-C 06/2024 noted MV CAD and underwent CABG x3 (EARL to LAD, GSV to RI, GSV to PLB), ELAA w/ 40 mm AtriClip 08/24/2024.
-Post op hypotension: requiring pressor support : Slowly down titrating meds
-Brief Junctional rhythm
-Continue aspirin, plavix.
-Continue high intensity statin. LDL 53
-Continue post-op care.
-Will follow
HPI: Patient was seen as a new patient at [facility] office on 08/17/2024 due to history of abnormal cardiac cath and was referred to ER and is now admitted with consultation to cardiology. Patient used to work at [facility]. She had a shoulder injury
prompting an x-ray that showed a pulmonary nodule. She then followed up with a inspector coated fabrics out of [facility] and was recommended bronchoscopy with biopsy that was performed 06/2024. Patient reports that the pathology was negative for malignancy, but
that in either the bronchoscopy report or the pathology report it was recommended that she have a repeat bronchoscopy and biopsy in about 6 months. Patient reports that as part of the workup for bronchoscopy she had an ECG that was abnormal and had
cardiac cath performed by Dr. Yves Lund at [facility]. Patient recalls being told that her cardiac cath was abnormal and that the plan was for her to complete her bronchoscopy and biopsy and following that she would have an intervention so as to not
interrupt DAPT. Patient says that it has been 1 month since her bronchoscopy and so she followed up with her PCP who arranged for her to see a corporate strategy associate at another group which was performed yesterday. Cardiac cath films were reviewed by
cardiology at the [facility] office and felt to be abnormal. Patient has possible angina symptoms of upper back tightness and has been having the symptoms at rest. Patient was then referred to ER. Serial troponin in the ER was elevated, peak thus far
0.155. Patient denies any chest or back pain at this time.
Progress Note - Push Bench Operator Helper
Subjective
Date of Service: August 25, 2024
Extubated and without complaint
Objective
Labs:
08/25/24 09:43
08/25/24 08:56
Labs
Hgb 8.7 g/dL (12.0-16.0) L 08/25/24 09:43
Hct 26.6 % (37.0-47.0) L 08/25/24 09:43
Plt Count 105 10^3/uL (130-400) L 08/25/24 09:43
PT 18.0 Sec (11.4-14.6) H 08/24/24 19:36
INR 1.46 08/24/24 19:36
APTT 24.5 Sec (23.4-35.0) 08/24/24 19:36
Sodium 144 mmol/L (135-145) 08/25/24 08:56
Potassium 4.5 mmol/L (3.5-5.1) 08/25/24 08:56
BUN 18 mg/dl (7-17) H 08/25/24 08:56
Creatinine 1.2 mg/dL (0.6-1.0) H 08/25/24 08:56
Glucose 121 mg/dl (70-99) H 08/25/24 08:56
Vital Signs and I&O:
Vital Signs
Temp Pulse Resp BP Pulse Ox
97.8 F 59 13 88
08/25/24 15:00 08/25/24 15:05 08/25/24 15:05 08/25/24 14:02 08/25/24 15:05
Vital Signs
Temp Pulse Resp BP Pulse Ox
97.8 F 59 13 88
08/25/24 15:00 08/25/24 15:05 08/25/24 15:05 08/25/24 14:02 08/25/24 15:05
Intake & Output
08/22/24 08/23/24 08/24/24 08/25/24
23:59 23:59 23:59 23:59
Intake Total 720 / 720 1200 / 1200 1979.1 / 2076.9 2210.0 / 2210.0
Output Total 560 / 620 765 / 765
Balance 720 / 720 1200 / 1200 1419.1 / 1456.9 1445.0 / 1445.0
Physical Exam
Physical Exam
Gen: Lying in bed in NAD
Lungs: Clear anterior and lateral
CV: Reg rhyth
Ext: No edema
--- NOTE | 2024-08-25 15:42 | W.PN.ANS.POP ---
Anesthesia Post Operative
- Anesthesia Post Op Note
Vital Signs Stable-See Nursing Note: Yes
Airway Patent: Yes
Adequate Pain Control: Yes
Change in Mental Status: No
Current Postoperative Nausea & Vomiting: No
Anesthesia Complications: No
General Anesthetic Recall: No
Unplanned Admission: No
Post Op Hydration Adequate: Yes
--- NOTE | 2024-08-25 15:49 | CM ---
Reviewed chart. Met with Mrs. Garcia to review discharge plans. She states she is feeling well. She states prior to admission she resides with her spouse in a two story home with one step to enter.. She states she has a full flight of steps to get to
bedroom. She states she has a full bathroom with a shower on the first floor. She states prior to admission she was independent with ambulation and adls. She states she does not have any DME in the home. She states has a prescription plan.
Medical work-up in progress. The discharge plan is to return home with her spouse and a home visit by the Transitional Care Nurse when medically stable.
[2024-08-25] MEDS: NSS 500 IV (16:34)
[2024-08-25] MEDS: LIPITOR 40 MG PO (18:12)
[2024-08-25] MEDS: BUMEX 2 MG IV ×2 (18:12→22:38)
[2024-08-25 18:21] LABS: B.E. -2.8 mmol/L; HCO3 21.8 mmol/L (21-28); Ionized Calcium 1.26 mMOL/L (1.15-1.33); O2 Saturation % 93.7 % (94-98); PCO2 36 mmHg (32-35); PO2 69 mmHg (83-108); Potassium 4.3 mMOL/L (3.5-5.1); Sodium 131 mMOL/L (136-145); pH 7.39 (7.35-7.45)
[2024-08-25 18:25] LABS: Mixed Venous O2 Saturation 45.5 %
[2024-08-25 18:32] LABS: Hematocrit 28.5 % (37.0-47.0); Hemoglobin 9.8 g/dL (12.0-16.0); Mean Corp Hgb Conc. 34.4 g/dL (33.0-37.0); Mean Corpuscular Hgb 31.6 pg (27.0-31.0); Mean Corpuscular Volume 91.9 fL (81.0-99.0); Red Cell Dist. Width 15.2 % (11.5-14.5); White Blood Cell Count 13.7 10^3/uL (4.8-10.8)
[2024-08-25 18:37] LABS: Albumin 3.1 g/dl (3.5-5.0); Alkaline Phosphatase 49 U/L (38-126); Blood Urea Nitrogen 21 mg/dl (7-17); Calcium 9.6 mg/dl (8.4-10.2); Carbon Dioxide 26 mmol/L (22-30); Chloride 101 mmol/L (98-107); Estimated Creatinine Clearance 31 ml/min; Glucose 146 mg/dl (70-99); Potassium 4.4 mmol/L (3.5-5.1); Sodium 135 mmol/L (135-145); Total Bilirubin 1.3 mg/dl (0.2-1.3); Total Protein 4.8 g/dl (6.3-8.2); eGFR 43.69
[2024-08-25 19:04] LABS: ALT (SGPT) 899 U/L (0-35); AST (SGOT) 2157 U/L (14-36); Mean Platelet Volume 12.6 fL (7.4-10.4); Platelet Count 85 10^3/uL (130-400)
[2024-08-25] MEDS: FLEXBUMIN 100 IV (19:41)
--- NOTE | 2024-08-25 19:45 | PTCARENOTE ---
Received patient from RN at 1900. Patient sitting in bed comfortably w/ call graham in reach. AOx4. Accelerated junctional rhythm. HR 68 BP 119/52. Heart sounds audible. Rub noted. Radial and pedal pulses present bilaterally. No edema noted.
Lungs clear bilaterally but diminished in the bases. POX 91% RA. CTx4 draining red fluid WNL set to -20 wall suction. No tidaling, crepitus, or air leaks noted. Alonso draining clear junie urine ~ 25mL/hr. Bowel sounds hypoactive and appetite
diminished. Sternal dressing dry and intact. Right groin and right saphenous vein sight dry w/ surgical adhesive. RIJ cordis w/ swan @ 42 CI 2.09 CO 3.22 PAP 42/15 CVP 15. Left A-line. All lines leveled and zeroed. Left peripheral patent and
intact. Right peripheral IV removed due to leaking. Dobut 5 and Epi 3.
--- NOTE | 2024-08-25 20:00 | PTCARENOTE ---
received pt from [facility]. RN Karl is on orientation with this RN and will assist in the care of pt. pt is POD #1 from CABGx3 and DESTINY clip with doctor Luis Fernando. pt is resting comfortably in bed. accelerated junctional rhythm in monitor VSS. heart
sound audible, rub present, radial and DP pulses palpable, no edema noted. lung diminished throughout, 97% on RA, 2LNC at night, right and left pleural CT and x2 MS CT to -20 wall suction, no air leaks, tidaling, or crepitus noted. +BS x4 quadrants,
abdomen soft non tender, denies n/v at this time. pt is voiding clear yellow urine, urine output has been low, care team aware. surgical sites maintained. right IJ cordis/ swan at 42cm, left radial A-line, and left PIV maintained ( right PIV removed
due to leaking). epinephrine and dobutamine gtt infusing. call graham within reach. will continue to monitor.
[2024-08-25 22:15] LABS: B.E. -1.2 mmol/L; HCO3 23.6 mmol/L (21-28); Ionized Calcium 1.22 mMOL/L (1.15-1.33); O2 Saturation % 99.1 % (94-98); PCO2 39 mmHg (32-35); PO2 89 mmHg (83-108); Potassium 4.6 mMOL/L (3.5-5.1); pH 7.39 (7.35-7.45)
[2024-08-26] VITALS (66 sets, daily range): BP systolic 67–153; BP diastolic 38–127; BMI 19.2
[2024-08-26] MEDS: SODIUM BICARBONATE 50 MEQ IV (00:24)
[2024-08-26] MEDS: CALCIUM CHLORIDE 10% SYRINGE 60 MG IV (00:29)
--- NOTE | 2024-08-26 00:45 | PTCARENOTE ---
Patient reassessed. patient lying in bed comfortably with call graham in reach. Vital signs stable. Accelerated junctional rhythm. Calcium chloride and sodium Bicarb given per CT PA Ed. Dobut 5 Epi 0.
--- NOTE | 2024-08-26 02:05 | PTCARENOTE ---
Patient converted to NSR @ 0140.
[2024-08-26 02:58] LABS: Mixed Venous O2 Saturation 55.4 %
[2024-08-26 03:08] LABS: INR 2.29; PT 25.3 Sec (11.4-14.6)
[2024-08-26 03:12] LABS: Lactic Acid 1.7 mmol/L (0.7-2.0)
[2024-08-26 03:26] LABS: Hematocrit 27.6 % (37.0-47.0); Hemoglobin 9.6 g/dL (12.0-16.0); Mean Corp Hgb Conc. 34.8 g/dL (33.0-37.0); Mean Corpuscular Hgb 31.6 pg (27.0-31.0); Mean Corpuscular Volume 90.8 fL (81.0-99.0); Mean Platelet Volume 12.7 fL (7.4-10.4); Platelet Count 74 10^3/uL (130-400); Red Blood Cell Count 3.04 10^6/uL (4.20-5.40); Red Cell Dist. Width 14.8 % (11.5-14.5); White Blood Cell Count 14.4 10^3/uL (4.8-10.8)
[2024-08-26 03:41] LABS: ALT (SGPT) 550 U/L (0-35); AST (SGOT) 1404 U/L (14-36); Albumin 3.9 g/dl (3.5-5.0); Alkaline Phosphatase 44 U/L (38-126); Blood Urea Nitrogen 26 mg/dl (7-17); Calcium 10.3 mg/dl (8.4-10.2); Carbon Dioxide 30 mmol/L (22-30); Chloride 99 mmol/L (98-107); Direct Bilirubin 0.4 mg/dl (0.0-0.4); Estimated Creatinine Clearance 31 ml/min; Glucose 116 mg/dl (70-99); Magnesium 2.1 mg/dl (1.6-2.3); Potassium 4.7 mmol/L (3.5-5.1); Sodium 135 mmol/L (135-145); Total Bilirubin 1.6 mg/dl (0.2-1.3); Total Protein 5.5 g/dl (6.3-8.2); eGFR 43.69
[2024-08-26] MEDS: FLEXBUMIN 100 IV ×2 (03:54→11:39)
--- NOTE | 2024-08-26 03:54 | W.PN.CT ---
Today's Communication / Plan
-
Plan:
-No major issues overnight. Hemodynamically and neurologically intact. Did well overnight
-Weaned off Levophed and epinephrine gtts, remains on dobutamine @ 5 mcg/kg/min
-Last CI 2.21, 24hrs u/o 1240
-Rhythm is NSR @ 85 bpm
-Appreciate Cardiology/EP input. Recommend Echo today
-Monitor Cr 1.3, was 0.6-0.9 preop
-Lactic acidosis resolved following d/c of Epinephrine
-Transaminitis is improving: AST 2157->1404, ALT 999->550. Placed Tylenol on hold, avoid hepatotoxic meds (will assess placing Lipitor on hold). Amiodarone is on hold
-INR noted to be 2.29 this AM, will repeat and consider vit K if rising
-Wean dobutamine as tolerated
-Keep sun while on dobutamine
-A-line non-functional and d/c'd this AM. Will need new a-line while on Dobutamine
-Consider D/C of mediastinal chest tubes 45/115; maintain Pleurals 205/525
-Telemetry phase once off dobutamine gtt
-Maintain cordis
-Encourage use of IS
-OOB into chair
Assessment / Plan
-
Assessment:
-S/P Median sternotomy/CABG x 3 (EARL to LAD, GSV to RI, GSV to RPLB)/Endoscopic harvest/prep of RLE GSV/ELAA (40mm AtriClip), by Dr. Gould, 08/24/24, pod#2
-Severe 3v CAD
-NSTEMI (peak trop 0.243)
-ICM
-LVEF 30-35%, 40-45 postop per intraop GLADYS
-Mild MR
-Plavix washout
-RUL Lung Nodule S/P bronchoscopy and biopsy, 07/31/2024 (Benign)
-Former tobacco use (quit 2005)
-HTN
-HLD
-Severe PAD S/p RLE WORLD HISTORY TEACHER and stent x 2 (on Plavix)
-Anemia
-S/P hysterectomy
-S/p cholecystectomy
-Acute postop blood loss Anemia on chronic anemia(transfused 1u PRBC intraop)
-Acute postop atelectasis
-Acute postop hypovolemia with subsequent hypervolemia
-Acute postop bradycardia (30's)/junctional rhythm
-Acute postop hypotension, SBP 60's
-Acute postop NAVEEN
-Acute postop transaminitis
-Acute postop lactic acidosis, likely from Epinephrine
Discussed patient care with: Cardiology, Nursing, Respiratory Therapy, Pharmacy and Care Team
Subjective
Procedure
-S/P Median sternotomy/CABG x 3 (EARL to LAD, GSV to RI, GSV to RPLB)/Endoscopic harvest/prep of RLE GSV/ELAA (40mm AtriClip), by Dr. Gould, 08/24/24
-
Date of Service: August 26, 2024
Pt c/o mild incisional pain, otherwise feels well
Objective Data
-
Lab Results
08/26/24 02:27
08/26/24 02:27
PT 25.3 Sec (11.4-14.6) H 08/26/24 02:27
INR 2.29 08/26/24 02:27
APTT 24.5 Sec (23.4-35.0) 08/24/24 19:36
Vital Signs
Vital Signs
Temp Pulse Resp BP Pulse Ox
99.6 F 74 28 134/56 93
08/26/24 03:00 08/26/24 03:15 08/26/24 03:15 08/26/24 02:14 08/26/24 03:05
CT Intake/Output/Weight
08/25/24 08/25/24 08/26/24
06:59 18:59 06:59
Intake Total 1549.0 / 2923.0 2069.8 / 2502.0 432.2 / 2502.0
Output Total 590 / 975 605 / 1605 1000 / 1605
Balance 959.0 / 1948.0 1464.8 / 897.0 -567.8 / 897.0
SaO2: 93 (1)
Physical Exam
-
General: Awake, Oriented and AOx3
Cardiovascular: Regular rate & rhythm, No Murmurs, No Rub and No Gallop
Respiratory: Decreased Breath Sounds (at bases, otherwise clear)
Sternum: Stable
Incision: Clean, Dry, Intact and Dressing Intact
Extremities: No Edema
Data Reviewed
-
Lab Results: Results Reviewed
Medications: Active Meds Reviewed
Chest X-Ray: Report Reviewed and Image Reviewed
ECG: Report Reviewed and Image Reviewed
--- NOTE | 2024-08-26 04:41 | PTCARENOTE ---
Assessment unchanged. Patient lying in bed comfortably. CHG cloth bath given and linens changed. A-line removed by CT PA Ed due to leaking.
[2024-08-26] MEDS: CORDARONE 103 MG IV ×3 (07:49→19:30)
--- NOTE | 2024-08-26 07:53 | W.PN.INTV ---
Today's Communication / Plan
Recommendations
Dobutamine being weaned
Coagulopathy being followed
Patient may require pacemaker depending on clinical course
Sinus bradycardia/junctional, now with atrial fibrillation/RVR
Echocardiogram pending
Assessment
-
74-year-old woman with past medical history noted. Transferred from [facility] for evaluation of CABG. On CAT scan she has a right upper lobe groundglass opacity status post robotic bronchoscopy tissue sampling at -07/31 that was
benign-atypical cells found.
We were consulted on 08/19/2024 for preop pulmonary assessment.
Pt is now s/p CABG
-
S/p CAB x 3 on 08/24/24
Post GLADYS EF 40%
On norepinephrine, dobutamine, Precedex, insulin
Right upper lobe pulmonary nodule-groundglass
CT chest 08/18/2024: No acute disease of the chest. Moderate atherosclerosis. Right upper lobe groundglass/minimal solid about 4 mm component with cystic component opacity-1.6X 1.[address] chest 07/31/2024: Reported 2.3X 1.1 cm groundglass nodule on the right upper lobe with 4 mm solid component.
Mild paraseptal emphysema
Multivessel coronary artery disease-ischemic cardiomyopathy-unstable angina
Echocardiogram 08/18/2024: Ejection fraction 30 to 35%, mid anteroseptal, mid septal and mid inferior and apical akinesis, stage I diastolic dysfunction.
-
Conditions present prior admission:
Ischemic cardiomyopathy ejection fraction 30 to 35% by echocardiogram
Multivessel coronary artery disease by cath 06/2024
Pulmonary groundglass nodule status post bronchoscopy and biopsy 07/2024
Benign. Minimal atypical cells-follows up with Dr. Holt
Hypertension
Hyperlipidemia
Peripheral arterial disease status post right lower extremity stent
Former smoker-quit in 2005
Assessment and plan:
At this time, patient appears comfortable without complaints
Mild cough noted
Weaned off norepinephrine and epinephrine. Remains on dobutamine
Episode of atrial fibrillation with rapid ventricular response, given amiodarone x 1
Postoperative chest x-ray adequate
Prior was having episodes of sinus bradycardia, junctional rhythm
Moving forward
Continue with management per CT surgery
Prior bradycardia with possible junctional rhythm now with atrial fibrillation, rapid ventricular response
Dobutamine being weaned
Echocardiogram pending later today
EP/cardiology following, may require pacemaker depending on clinical course
CT drainage minimal
Chest x-ray without acute findings
Postoperative anemia noted, hemoglobin stable at 9.[address] surgery protocol
Chest tube output minimal
Blood sugars noted, insulin therapy as needed
Patient admits to stopping smoking
Right upper lobe lung nodule differential diagnosis includes adenocarcinoma in situ versus scarring.
As noted status post robotic bronchoscopy 07/31/2024 at [facility]-minimal atypical cells.
PET/CT reportedly showed no significant FDG avidity -Plan in the outpatient setting was to evaluate CT surgery in the future versus repeating biopsy. Patient is aware of this plan
It is encouraging that in our CAT scan here the size of the lung nodule decreased from 2.3 to 1.6 cm. Solid component of 4 mm remains stable.
Patient states she is not following up with Dr. 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
Pulmonary follow-up will be provided
Reviewed with critical care nursing
TCCT 31 min
Data
Pulmonary function testing 08/20/2024:
FEV1/FVC ratio 70%, FEV1 1.98 L - 86%, FVC 2.82 L having 95%.
T.51 L - 85%
RV 1.88 L - 88%.
RV/TLC ratio 42%
Diffusion capacity 12.08-61%.
DLCO/VA 98%.
-
No airflow obstruction. Preserved lung volumes. Moderately decreased diffusion capacity, corrects to normal when adjusted for alveolar volume.
Subjective Dataa
Subjective Data
Date of Service:
Date of Service: August 26, 2024
Subjective:
Patient without significant complaints. Mild incisional discomfort, mild cough and denies hemoptysis, nausea, abdominal pain, shortness of breath. at bedside
Atrial fibrillation with RVR noted. Amiodarone given. Remains on pressors
Objective Data
Data Reviewed
Vital Signs / I&O / Oxygen:
Vital Signs
Temp Pulse Resp BP Pulse Ox
99.6 F 180 24 93/71 91
08/26/24 07:51 08/26/24 07:51 08/26/24 07:51 08/26/24 07:38 08/26/24 07:51
Intake and Output
08/25/24 08/26/24 08/27/24
06:59 06:59 06:59
Intake Total 2564.6 / 2923.0 2656.8 / 2656.8 21.5 / 21.5
Output Total 920 / 975 2034 / 2034 110 / 110
Balance 1644.6 / 1948.0 621.8 / 621.8 -88.5 / -88.5
SaO2 [CPAP/PSV] 100
SaO2 [SIMV] 100
SaO2 91
Nasal Cannula flow liters per 4
minute
Physical Exam
General: Comfortable and Other (IJ, chest tube)
HEENT: Normocephalic and Anicteric
Cardiovascular: S1-S2, Regular Rhythm, Murmur (n) and Rub (n)
Respiratory: Wheeze (n), Crackles (n), Rhonchi (n), Non-Labored Respirations, Stridor (n) and Chest Tube
GI: Soft and Non Distended
Neurology: Awake, Alert and No Motor Deficits (Moves all extremities)
Skin: Cyanosis (n), Jaundice (n) and Rash (n)
Labs/Micro/Reports
Lab Data
08/26/24 02:27
04/02/25 02:27
Laboratory Results
08/25/24 08/25/24 08/25/24
08:56 14:04 18:06
PT
INR
pH 7.31 L Cancelled 7.39
pCO2 43 H Cancelled 36 H
pO2 96 Cancelled 69 L
HCO3 21.7 Cancelled 21.8
O2 Delivery Level Cancelled
08/25/24 08/26/24
22:09 02:27
PT 25.3 H
INR 2.29
pH 7.39
pCO2 39 H
pO2 89
HCO3 23.6
O2 Delivery Level
--- NOTE | 2024-08-26 07:53 | PTCARENOTE ---
MARSHA. HR 190s. amio bolus ordered and given. placed on 4L nc. VSS. Dr Gould and Jessica SENIOUR INSIGHT MANAGER at bedside
--- NOTE | 2024-08-26 07:56 | W.PN.CARDCBS ---
Addendum entered and electronically signed by Gregg Mckinley DO 08/26/24 08:55:
I saw and examined the patient.
The Bowstring Maker's note was reviewed and I agree with the note.
Comment:
Patient is status post CABG x 3 with left atrial appendage clip on 08/24/2024 requiring epinephrine, Levophed, dobutamine which was subsequently weaned overnight.
In review of rhythm, patient previously without junctional rhythm with recovery of sinus node activity overnight and into this morning by EKG and telemetry. However, this morning, patient noted to have AF RVR with brief returns of sinus rhythm. In
this setting, recommend to wean dobutamine as able as this is likely contributing to the ectopy along with immediate postoperative state. IV amiodarone given by CT surgical team.
Patient is scheduled for echocardiogram today to reassess LVEF. Recommend repeating EKG this afternoon and again tomorrow morning. Monitor on telemetry. It is likely that patient's sinus node will continue to recover as noted today prior to AF
RVR. No current indication for permanent pacing. If patient maintaining sinus rhythm, consider addition of low-dose beta-jay rather than amiodarone as patient continues to recover and monitor response. If no recovery of sinus node activity or
difficult to control atrial arrhythmias which may require patient to be on AV vikash blocking agents, patient may then benefit from permanent pacing. Again, at this juncture, would allow for recovery postsurgery and continued surveillance for the
next 24-48 hours.
Remainder of A/P as below
Time spent with humu-ni-vyzb and bzc-okwo-ke-face time including coordination of care 51 minutes.
Discuss[address] with Dr Gould, [place] surgical service, nursing
Original Note:
Today's Communication / Plan
-
wean dobut as able
IV amio bolus
follow rhythm closely. pads in place
echo today
continue post op care
Impression / Plan
-
PCP: Dr. Fran Del Cid
Coach Tour Driver: Dr. Liang
Impression:
Presented to [facility] ER from outpatient [place] cardiology office with abnormal cardiac cath and back pain 08/17/2024
NSTEMI, peak Troponin 0.243
CAD with MV CAD by cardiac cath at [facility] 06/2024
s/p CABG x3 (EARL to LAD, GSV to RI, GSV to PLB), ELAA w/ 40 mm AtriClip 08/24/2024
Ischemic CM EF 30 to 35% by echo 08/18/2024, EF 42% by intraop GLADYS
Post op junctional rhythm, appears to be improving
Post op PAF with RVR
Pulmonary nodule s/p bronchoscopy and biopsy was reportedly negative pathology for malignancy 06/2024
Patient reports that pathology report recommended repeat biopsy for monitoring
HTN
Hyperlipidemia
PAD s/p RLE MULTIMEDIA COORDINATOR and stent
Former smoker
Echo 08/18/2024: EF 30 to 35%, mid anteroseptal, mid septal, mid inferior and apical akinesis, stage I diastolic
Intraop GLADYS 08/24/24: EF 42%, mid to apical anterior/anteroseptal/septal hypokinesis, mid to apical inferior hypokinesis, mild cLVH, stage 1 diastolic dysfunction, mild MR, mod sessile atheroma in descending aorta, mild sessile atheroma in distal arch
Plan:
-Presented to [facility] from OP [facility] cardiology office w/ abnormal cardiac cath and back pain.
-[facility] 06/2024 noted MV CAD and underwent CABG x3 (EARL to LAD, GSV to RI, GSV to PLB), ELAA w/ 40 mm AtriClip 08/24/2024.
-pressors being weaned overnight. currently on dobut @2.
-yesterday noted to be junctional. BB/amio held. overnight looks like patient in SR with intermittent junctional rhythm. this morning, patient went into afib with RVR. patient does feel palpitations. d/w CT surgery, giving amiodarone 150 bolus. may
be in part due to dobut, continue to wean as able
-pads in place
-echo today
-may require device if remains with tachybrady episodes, however overall appears conduction is returning
-continue asa, plavix, statin
-continue post op care
HPI: Patient was seen as a new patient at [facility] office on 08/17/2024 due to history of abnormal cardiac cath and was referred to ER and is now admitted with consultation to cardiology. Patient used to work at [facility]. She had a shoulder injury
prompting an x-ray that showed a pulmonary nodule. She then followed up with a telecom engineer out of [facility] and was recommended bronchoscopy with biopsy that was performed 06/2024. Patient reports that the pathology was negative for malignancy, but
that in either the bronchoscopy report or the pathology report it was recommended that she have a repeat bronchoscopy and biopsy in about 6 months. Patient reports that as part of the workup for bronchoscopy she had an ECG that was abnormal and had
cardiac cath performed by Dr. Yves Lund at [facility]. Patient recalls being told that her cardiac cath was abnormal and that the plan was for her to complete her bronchoscopy and biopsy and following that she would have an intervention so as to not
interrupt DAPT. Patient says that it has been 1 month since her bronchoscopy and so she followed up with her PCP who arranged for her to see a manager billing at another group which was performed yesterday. Cardiac cath films were reviewed by
cardiology at the [facility] office and felt to be abnormal. Patient has possible angina symptoms of upper back tightness and has been having the symptoms at rest. Patient was then referred to ER. Serial troponin in the ER was elevated, peak thus far
0.155. Patient denies any chest or back pain at this time.
Progress Note - Coach Tour Driver
Subjective
Date of Service: August 26, 2024
reports some palpitations. no CP. feels as though she can't take a deep breath in
Objective
Labs:
08/26/24 02:27
08/26/24 02:27
Labs
Hgb 9.6 g/dL (12.0-16.0) L 08/26/24 02:27
Hct 27.6 % (37.0-47.0) L 08/26/24 02:27
Plt Count 74 10^3/uL (130-400) L 08/26/24 02:27
PT 25.3 Sec (11.4-14.6) H 08/26/24 02:27
INR 2.29 08/26/24 02:27
APTT 24.5 Sec (23.4-35.0) 08/24/24 19:36
Sodium 135 mmol/L (135-145) 08/26/24 02:27
Potassium 4.7 mmol/L (3.5-5.1) 08/26/24 02:27
BUN 26 mg/dl (7-17) H 08/26/24 02:27
Creatinine 1.3 mg/dL (0.6-1.0) H 08/26/24 02:27
Glucose 116 mg/dl (70-99) H 08/26/24 02:27
Vital Signs and I&O:
Vital Signs
Temp Pulse Resp BP Pulse Ox
99.6 F 180 24 93/71 91
08/26/24 07:51 08/26/24 07:51 08/26/24 07:51 08/26/24 07:38 08/26/24 07:51
Vital Signs
Temp Pulse Resp BP Pulse Ox
99.6 F 180 24 93/71 91
08/26/24 07:51 08/26/24 07:51 08/26/24 07:51 08/26/24 07:38 08/26/24 07:51
Intake & Output
08/23/24 08/24/24 08/25/24 08/26/24
07:59 07:59 07:59 07:59
Intake Total 1200 / 1680 720 / 720 2923.0 / 2993.9 2319.9 / 2319.9
Output Total 975 / 1045 2089 / 2089
Balance 1200 / 1680 720 / 720 1948.0 / 1948.9 229.9 / 229.9
Physical Exam
Physical Exam
GEN: No distress, awake, alert, oriented x3
HEENT: supple, anicteric, mmm, eomi
LUNGS: Decreased BS B/L, no wheezes
CV: Irreg irreg, S1/S2, no murmur
ABD: soft, BS+, NT/ND
EXT: No cyanosis, clubbing. trace edema of B/L LE
NEURO: Gross non-focal
SKIN: Warm, pink, dry. No rash. Sternotomy dressing c/d/i.
--- NOTE | 2024-08-26 08:07 | W.PN.CARDCBS ---
Today's Communication / Plan
-
Check pro-BNP, follow daily weight
ECG is NSR today, amio and Toprol XL remain on hold
Impression / Plan
-
PCP: Dr. Fran Del Cid
Underwriting Consultant: Dr. Liang
Impression:
Presented to ER from outpatient [place] cardiology office with abnormal cardiac cath and back pain 08/17/2024
NSTEMI, peak Troponin 0.243
CAD with MV CAD by cardiac cath at [facility] 06/2024
s/p CABG x3 (EARL to LAD, GSV to RI, GSV to PLB), ELAA w/ 40 mm AtriClip 08/24/2024
Ischemic CM EF 30 to 35% by echo 08/18/2024
Pulmonary nodule s/p bronchoscopy and biopsy was reportedly negative pathology for malignancy 06/2024
Patient reports that pathology report recommended repeat biopsy for monitoring
HTN
Hyperlipidemia
PAD s/p RLE MANAGER FRAUD and stent
Former smoker
Echo 08/18/2024: EF 30 to 35%, mid anteroseptal, mid septal, mid inferior and apical akinesis, stage I diastolic
Plan:
-ECG 08/26/24 reviewed by me and patient is in SR.
-Dobutamine running at 2 mcg/kg/min. Levo and Epi are off as of 08/26/24.
-CT surgery note reviewed for 08/26/24 and repeat echo ordered, will review. EF was 30-35% pre-op
-Aspirin and Plavix ordered. Patient was managed as a NSTEMI on admission.
-LDL 53 and outpatient dose of atorvastatin increased to 40 mg daily this admission
-Outpatient dose of Imdur ER 30 mg daily has been stopped
-Patient was not taking MARTIN/ARB/ARNI/aldosterone antagonist prior to admission. Pending echo and BP will consider starting
-Outpatient dose of ToproL XL 200 mg daily was lowered to 12.5 mg BID and is now on hold due to hypotension
-Weight is up to 118 lbs on 08/26/24. Check pro-BNP. Patient was not taking a diuretic prior to admission.
-Post-op dosing of amiodarone is on hold due to bradycardia. No h/o Afib pre-op
HPI: Patient was seen as a new patient at [facility] office on 08/17/2024 due to history of abnormal cardiac cath and was referred to ER and is now admitted with consultation to cardiology. Patient used to work at [facility]. She had a shoulder injury
prompting an x-ray that showed a pulmonary nodule. She then followed up with a farm labor contractor out of [facility] and was recommended bronchoscopy with biopsy that was performed 06/2024. Patient reports that the pathology was negative for malignancy, but
that in either the bronchoscopy report or the pathology report it was recommended that she have a repeat bronchoscopy and biopsy in about 6 months. Patient reports that as part of the workup for bronchoscopy she had an ECG that was abnormal and had
cardiac cath performed by Dr. Yves Lund at [facility]. Patient recalls being told that her cardiac cath was abnormal and that the plan was for her to complete her bronchoscopy and biopsy and following that she would have an intervention so as to not
interrupt DAPT. Patient says that it has been 1 month since her bronchoscopy and so she followed up with her PCP who arranged for her to see a laboratory engineer at another group which was performed yesterday. Cardiac cath films were reviewed by
cardiology at the [facility] office and felt to be abnormal. Patient has possible angina symptoms of upper back tightness and has been having the symptoms at rest. Patient was then referred to ER. Serial troponin in the ER was elevated, peak thus far
0.155. Patient denies any chest or back pain at this time.
Progress Note - Underwriting Consultant
Subjective
Date of Service: August 26, 2024
Minimal pain
Objective
Labs:
08/26/24 02:27
08/26/24 02:27
Labs
Hgb 9.6 g/dL (12.0-16.0) L 08/26/24 02:27
Hct 27.6 % (37.0-47.0) L 08/26/24 02:27
Plt Count 74 10^3/uL (130-400) L 08/26/24 02:27
PT 25.3 Sec (11.4-14.6) H 08/26/24 02:27
INR 2.29 08/26/24 02:27
APTT 24.5 Sec (23.4-35.0) 08/24/24 19:36
Sodium 135 mmol/L (135-145) 08/26/24 02:27
Potassium 4.7 mmol/L (3.5-5.1) 08/26/24 02:27
BUN 26 mg/dl (7-17) H 08/26/24 02:27
Creatinine 1.3 mg/dL (0.6-1.0) H 08/26/24 02:27
Glucose 116 mg/dl (70-99) H 08/26/24 02:27
Vital Signs and I&O:
Vital Signs
Temp Pulse Resp BP Pulse Ox
99.6 F 90 23 92/65 88
08/26/24 07:51 08/26/24 08:00 08/26/24 08:00 08/26/24 08:00 08/26/24 08:00
Vital Signs
Temp Pulse Resp BP Pulse Ox
99.6 F 90 23 92/65 88
08/26/24 07:51 08/26/24 08:00 08/26/24 08:00 08/26/24 08:00 08/26/24 08:00
Intake & Output
08/24/24 08/25/24 08/26/24 08/27/24
06:59 06:59 06:59 06:59
Intake Total 720 / 720 2564.6 / 2923.0 2656.8 / 2656.8 21.5 / 21.5
Output Total 920 / 975 2034 / 2034 110 / 110
Balance 720 / 720 1644.6 / 1948.0 621.8 / 621.8 -88.5 / -88.5
Physical Exam
Physical Exam
GEN: NAD. AAOx3
HEENT: MMM
LUNGS: 2 L NC. No audible wheeze
CV: SR on tele.
EXT: Trace edema B/L
NEURO: Gross non-focal
SKIN: No rash
[2024-08-26] MEDS: BUMEX 1 MG IV (08:08)
[2024-08-26] MEDS: BACTROBAN 2% OINTMENT 1 APPLIC NASAL ×2 (08:10→21:46)
[2024-08-26] MEDS: NEURONTIN 100 MG PO ×3 (08:10→21:46)
[2024-08-26] MEDS: PLAVIX 75 MG PO (08:10)
[2024-08-26] MEDS: FEOSOL 325 MG PO (08:10)
[2024-08-26] MEDS: PROTONIX 40 MG PO (08:10)
[2024-08-26] MEDS: LOW STRENGTH ASPIRIN 81 MG PO (08:11)
[2024-08-26] MEDS: SENOKOT-S 1 TABLET PO ×2 (08:11→21:46)
[2024-08-26] MEDS: VITAMIN C 500 MG PO (08:11)
[2024-08-26] MEDS: LIDOCAINE 4% PATCH 1 PATCH TOPICAL (08:14)
--- NOTE | 2024-08-26 10:01 | PN.CDI ---
CDI
- -
CDI:
Physician Documentation Request
Admit Date: 08/17/24 19:[address] Surgery,
Clinical Indicators:
Patient admitted with NSTEMI; s/p/CABG, ELAA 08/24/24.
4/2 PN, '-Acute postop hypotension, SBP 60's-Acute postop NAVEEN-Acute postop transaminitis -Acute postop lactic acidosis, likely from Epinephrine'
Pressor requirements: Epinephrine 1 -4 mcg/min Levophed 2 -12 mcg/min
Dobutamine titrations:
08/24/24
23:09 08/25/24
10:31 08/25/24
19:00
CURRENT dosage in mcg/kg/min 1 5 5
Cardiac Index:
08/25/24
13:38 08/26/24
04:15
Cardiac Index 1.57 1.94
Please clarify which of the following is the most likely etiology of the above symptoms and treatment rendered:
Cardiogenic shock
Other shock, please specify type
Postoperative Hypotension only
Other, please specify
Use of terms such as suspected, likely, concern for, or probable (associated with a specific diagnosis that is being evaluated, monitored, or treated as if it exists) are acceptable and can be coded in the inpatient setting, when documented at the
time of discharge.
Thank you,
Linda Mares RN BSN
CDI Specialist
available via tiger text
Please use your independent medical judgment in providing your response.
[2024-08-26 10:08] LABS: INR 2.36; PT 26.3 Sec (11.4-14.6)
--- NOTE | 2024-08-26 10:33 | W.PN.UPDATE ---
Update Note
Progress Note Update
CDI query:
Cardiogenic shock
[2024-08-26 11:21] LABS: NT-proBNP 11800 pg/ml
[2024-08-26] MEDS: BUMEX 2 MG IV ×2 (13:19→20:05)
[2024-08-26] MEDS: LOPRESSOR 2.5 MG IV ×2 (14:27→19:30)
--- NOTE | 2024-08-26 16:21 | CM ---
Reviewed chart. Tried to see Mrs. Garcia today but she was unavailable. Prior to admission she resides with her spouse in a two story home with one step to enter. She has a full flight of steps to get to bedroom. She has a full bathroom with shower
on the first floor the first floor. Prior to admission she was independent with ambulation and adls. She does not have any DME in the home. She has a prescription plan. Medical work-up in progress. The discharge plan is to return home with her
spouse and a home visit by the Transitional Care Nurse when medically stable.
[2024-08-26 17:08] LABS: Blood Urea Nitrogen 34 mg/dl (7-17); Calcium 9.2 mg/dl (8.4-10.2); Carbon Dioxide 28 mmol/L (22-30); Chloride 97 mmol/L (98-107); Estimated Creatinine Clearance 31 ml/min; Glucose 139 mg/dl (70-99); Potassium 4.6 mmol/L (3.5-5.1); Sodium 133 mmol/L (135-145); eGFR 39.97
[2024-08-26] MEDS: LIPITOR 40 MG PO (17:17)
--- NOTE | 2024-08-26 19:45 | PTCARENOTE ---
assumed care of pt from previous RN. pt A&Ox4, resting in bed at time of assessment. A fib w/ RVR on tele-monitor. amio bolus and 2.5 mg IV lopressor given, see MAR for details. BP stable. POX decreasing to high 80s. pt placed on 15 L NRB mask- POX
95%. RT to place pt on 15 L midflow. CTx2 (R & L pleural) to -20cm wall suction, draining serosanguineous drainage. abd s/n, +BS. pt confirms poor appetite. sun catheter draining clear, yellow urine. all surgical sites stable, CDI. R IJ Cordis w/
KVO. PIV intact. R2 pads on pt, hooked up to zoll monitor. no temp epicardial wires in place. see worklist for complete nursing assessment, interventions, VS, and I&Os.
[2024-08-27] VITALS (39 sets, daily range): BP systolic 90–147; BP diastolic 49–92; BMI 18.4
--- NOTE | 2024-08-27 | PTCARENOTE ---
no acute changes. VSS. SR w/ PACs. POX 96% on [address] drainage WNL. U/O >0.5ml/kg/h.
[2024-08-27 05:07] LABS: Hematocrit 30.4 % (37.0-47.0); Hemoglobin 10.4 g/dL (12.0-16.0); Mean Corp Hgb Conc. 34.2 g/dL (33.0-37.0); Mean Corpuscular Hgb 31.9 pg (27.0-31.0); Mean Corpuscular Volume 93.3 fL (81.0-99.0); Mean Platelet Volume 13.4 fL (7.4-10.4); Platelet Count 106 10^3/uL (130-400); Red Blood Cell Count 3.26 10^6/uL (4.20-5.40); Red Cell Dist. Width 14.1 % (11.5-14.5); White Blood Cell Count 14.5 10^3/uL (4.8-10.8)
[2024-08-27 05:28] LABS: INR 1.96; PT 22.8 Sec (11.4-14.6)
[2024-08-27 05:42] LABS: Albumin 3.7 g/dl (3.5-5.0); Alkaline Phosphatase 99 U/L (38-126); Blood Urea Nitrogen 34 mg/dl (7-17); Calcium 9.1 mg/dl (8.4-10.2); Carbon Dioxide 32 mmol/L (22-30); Chloride 94 mmol/L (98-107); Direct Bilirubin 0.6 mg/dl (0.0-0.4); Estimated Creatinine Clearance 39 ml/min; Glucose 121 mg/dl (70-99); Magnesium 1.7 mg/dl (1.6-2.3); Potassium 3.6 mmol/L (3.5-5.1); Sodium 134 mmol/L (135-145); Total Bilirubin 2.3 mg/dl (0.2-1.3); Total Protein 5.4 g/dl (6.3-8.2); eGFR 53.39
--- NOTE | 2024-08-27 05:45 | PTCARENOTE ---
pt went into torsades. pt shocked x1 at 200J. converted back to a fib RVR. orders for 1g mag sulfate.
[2024-08-27] MEDS: KCL 50 IV ×4 (05:48→22:09)
[2024-08-27] MEDS: MAGNESIUM SULFATE 100 IV ×2 (05:48→06:29)
[2024-08-27 05:51] LABS: ALT (SGPT) 1174 U/L (0-35)
[2024-08-27 06:01] LABS: AST (SGOT) 1660 U/L (14-36)
--- NOTE | 2024-08-27 07:00 | PTCARENOTE ---
pt received at change of shift from previous RN. pt resting in bed, AAOX3, pt denies pain or discomfort. currently NSR on telemetry heart rate in 60s, pt will intermittently go into rapid a fib heart rate 150-160s. pt asymptomatic. zoll pads on
patient. pulses palpable. pt on 15L midflow nasal cannula, sat 98%. lung sounds diminished in bases. R/L pleural chest tubes to -20 suction, no air leaks or crepitus noted, minimal amount of serosanginous drainage. poor appetite, pt NPO for
PPM/AICD. sun draining clear yellow urine. surgical sites CDI. Right IJ cordis infusing KVO. see worklist for full nursing assessment and interventions.
--- NOTE | 2024-08-27 07:32 | W.PN.CT ---
Today's Communication / Plan
-
-pod #3
-no drips (Dobut was weaned off 08/26)
-rapid a-fib/flutter yesterday upto 150s, got 2.5 iv Lopressor and Amio bolus only - had upto 3-4 sec conversion pauses. In and out of a-fib all night.
-at 5:13 am pt had Torsades and required 1 shock. 2g IV Mg and 40 iv KCL were given (K 3.6, Mg 1.7)
-NPO for possible pacer today
-Echo 08/26: EF 45-50% with akinesis of mid to apical septum, apex, and apical anterior sun
-elevated LFTs, INR 1.96 today.
-Amio, Tylenol, Lipitor, BB held. Resumed po Mg
-Cr trended down - 1.1 today (peak Cr 1.4 and 0.9 preop)
-appears volume overloaded. got Bumex X 3 doses on 08/26 (UO 2190/2690 in 12/24 hrs)
Assessment / Plan
-
Assessment:
-S/P Median sternotomy/CABG x 3 (EARL to LAD, GSV to RI, GSV to RPLB)/Endoscopic harvest/prep of RLE GSV/ELAA (40mm AtriClip), by Dr. Gould, 08/24/24, pod#3
-Severe 3v CAD
-NSTEMI (peak trop 0.243)
-ICM
-LVEF 30-35%, 40-45 postop per intraop GLADYS
-Mild MR
-Plavix washout
-RUL Lung Nodule S/P bronchoscopy and biopsy, 07/31/2024 (Benign)
-Former tobacco use (quit 2005)
-HTN
-HLD
-Severe PAD S/p RLE CARPENTER GENERAL and stent x 2 (on Plavix)
-Anemia
-S/P hysterectomy
-S/p cholecystectomy
-Acute postop blood loss Anemia on chronic anemia(transfused 1u PRBC intraop)
-Acute postop atelectasis
-Acute postop hypovolemia with subsequent hypervolemia
-Acute postop bradycardia (30's)/junctional rhythm
-Acute postop hypotension, SBP 60's
-Acute postop NAVEEN
-Acute postop transaminitis /elevated INR
-Acute postop lactic acidosis, likely from Epinephrine
-Acute postop a-fib with tachy/dolores syndrome and conversion pauses upto 3-4 sec
-Acute postop Torsades on 08/27/24 - required 1 shock
Discussed patient care with: Nursing and Care Team
Subjective
Procedure
-S/P Median sternotomy/CABG x 3 (EARL to LAD, GSV to RI, GSV to RPLB)/Endoscopic harvest/prep of RLE GSV/ELAA (40mm AtriClip), by Dr. Gould, 08/24/24
-
Date of Service: August 27, 2024
Objective Data
-
Lab Results
08/27/24 04:45
08/27/24 04:45
PT 22.8 Sec (11.4-14.6) H 08/27/24 04:45
INR 1.96 08/27/24 04:45
APTT 24.5 Sec (23.4-35.0) 08/24/24 19:36
Vital Signs
Vital Signs
Temp Pulse Resp BP Pulse Ox
97.8 F 79 12 90/54 96
08/27/24 05:00 08/27/24 07:00 08/27/24 07:00 08/27/24 07:00 08/27/24 07:00
CT Intake/Output/Weight
08/26/24 08/27/24 08/27/24
18:59 06:59 18:59
Intake Total 255.1 / 628.1 373 / 628.1
Output Total 875 / 3275 2400 / 3275
Balance -619.9 / -2646.9 -202 / -2646.9
SaO2: 96
Physical Exam
-
General: Awake and AOx3
Cardiovascular: Regular rate & rhythm (elevated JVP, + JVD), No Murmurs and No Rub
Respiratory: Decreased Breath Sounds
Sternum: Stable
Incision: Clean, Dry and Intact
Extremities: No Edema
Abdomen: soft, nontender, nondistended, + bowel sounds
Data Reviewed
-
Lab Results: Results Reviewed
Medications: Active Meds Reviewed
Chest X-Ray: Report Reviewed and Image Reviewed
ECG: Report Reviewed and Image Reviewed
[2024-08-27] MEDS: BUMEX 2 MG IV (07:41)
[2024-08-27] MEDS: MAGNESIUM OXIDE 500 MG PO ×2 (07:42→20:09)
[2024-08-27] MEDS: PROTONIX 40 MG PO (07:42)
[2024-08-27] MEDS: LOW STRENGTH ASPIRIN 81 MG PO (07:42)
[2024-08-27] MEDS: BACTROBAN 2% OINTMENT 1 APPLIC NASAL ×2 (07:42→20:10)
[2024-08-27] MEDS: VITAMIN C 500 MG PO (07:42)
[2024-08-27] MEDS: SENOKOT-S 1 TABLET PO ×2 (07:43→20:09)
[2024-08-27] MEDS: PLAVIX 75 MG PO (07:43)
[2024-08-27] MEDS: LIDOCAINE 4% PATCH 1 PATCH TOPICAL (07:43)
[2024-08-27] MEDS: NEURONTIN 100 MG PO ×3 (07:43→20:38)
[2024-08-27] MEDS: FEOSOL 325 MG PO (07:43)
--- NOTE | 2024-08-27 07:50 | ITS.CL.ICD ---
Top Inventory Control Executive - ICD
Implantable Cardioverter Defibrillator
Procedure Report:
ICD IMPLANTATION REPORT
Date of Procedure: 08/27/24
PCP: Dr. Fran Del Cid
Rag Production Worker: Dr. Liang
Cardiothoracic surgeon: Dr Zachary Gould
PROCEDURES:
1. Right Heart Cath, 2. ICD Implant
HISTORY:
NSTEMI, peak Troponin 0.243 and found to have multivessel CAD by cardiac cath at [facility] 06/2024
Ischemic CM EF 30 to 35% by echo 08/18/2024
She underwent three-vessel coronary artery bypass grafting surgery on August 24, 2024 (LOWERY to LAD, GSV to RI, GSV to PLB), ELAA w/ 40 mm AtriClip
Post op initially junctional bradycardia, then PAF with rapid rates and conversion pause.
ECHO 08/26/24 (POD # 2) finds Left ventricular ejection fraction is 32% by Davies's method (visually EF% felt to be 45-50%) with akinesis of mid to apical septum, apex, and apical anterior sun.
On 08/27/24 she developed VF arrest. Initial rhythm is atrial fibrillation with rapid ventricular rates which degenerated to ventricular fibrillation which was quickly externally shocked back sinus rhythm.
Indication for ICD implantation is secondary prevention with life expectancy > 1 year
---
Lidocaine with epi was used for local anesthesia. An incision was made along the left chest and a pre-pectoral pocket was formed. Central venous access was obtained via axillary venipuncture. Using a Seldinger technique and peel-away sheaths
were placed.
Right heart catheterization
HEMODYNAMICS:
RA: 6 mmHg, RV: 24/2 mmHg, PA: 26/10 mmHg,
PCWP: 11 mmHg, PA sat: 45%
CO: 1.2 L/min, CI: 1.8 L/min
SVR: 3000
The pacing leads were placed under fluoroscopic guidance.
Once testing (see below) showed adequate and stable function, the leads were secured using the suture sleeves. The pocket was liberally irrigated with antibiotic solution. The leads were connected to the generator header and the leads and
generator were placed within the pocket. Fluoroscopy confirmed stable lead position. The pocket was closed in the typical fashion.
Tyrex antibiotic pouch was used
FLUOROSCOPY:
Fluoroscopy was used to guide lead placement.
IMPLANTS:
ICD Medtronic [id number], SN [id number], Left Pectoral
RA Medtronic 5076, SN [id number], RAA
RV Medtronic 6935, SN [id number], RV mid-basal septum
DEVICE TESTING:
Sensing: RA 1 mV, RV 5.4 mV
Capture: RA 1.5 V@0.5ms, RV 0.5 V@0.5ms
Ohms: RA 589, RV 530
FINAL PROGRAMMING:
William Pacing: AAIR <=> DDDR 70 - 130 ppm
Tachy parameters:
VF: 167 bpm, Shock
VT: 150 bpm, Monitor
COMPLICATIONS:
None
CONCLUSIONS:
1. Right heart hemodynamics demonstrate reduced cardiac output and index as well as evidence of reduced filling pressures
2. Successful implant of dual chamber ICD system.
3. Normal function of ICD and leads at implant testing.
RECOMMENDATIONS:
Post op care (tele, CXR, IV abx).
Resuming amiodarone at 200 mg 3 times daily
Resuming metoprolol XL 12.5 mg twice daily
Consideration for volume expansion as I believe she is somewhat volume depleted
Copy to:
PCP: Dr. Fran Del Cid
Rag Production Worker: Dr. Liang
Cardiothoracic Surgeon: Dr Zachary Gould
--- NOTE | 2024-08-27 08:05 | W.PN.INTV ---
Today's Communication / Plan
Recommendations
episode of torsade this a.m., shocked x 1
Presently atrial flutter/fib, 130s
N.p.o. for PPM/ICD today
Chest x-ray with right pleural effusion, mild atelectasis
Diuresis per CT surgery, creatinine improving
Assessment
-
74-year-old woman with past medical history noted. Transferred from [facility] for evaluation of CABG. On CAT scan she has a right upper lobe groundglass opacity status post robotic bronchoscopy tissue sampling at -07/31 that was
benign-atypical cells found.
We were consulted on 08/19/2024 for preop pulmonary assessment.
Pt is now s/p CABG
-
S/p CAB x 3 on 08/24/24
Post GLADYS EF 40%
On norepinephrine, dobutamine, Precedex, insulin
Brief torsade 08/27/22 at am, s/p shock x 1
awaiting pacemaker 08/27
Right upper lobe pulmonary nodule-groundglass
CT chest 08/18/2024: No acute disease of the chest. Moderate atherosclerosis. Right upper lobe groundglass/minimal solid about 4 mm component with cystic component opacity-1.6X 1.[address] chest 07/31/2024: Reported 2.3X 1.1 cm groundglass nodule on the right upper lobe with 4 mm solid component.
Mild paraseptal emphysema
Multivessel coronary artery disease-ischemic cardiomyopathy-unstable angina
Echocardiogram 08/18/2024: Ejection fraction 30 to 35%, mid anteroseptal, mid septal and mid inferior and apical akinesis, stage I diastolic dysfunction.
-
Conditions present prior admission:
Ischemic cardiomyopathy ejection fraction 30 to 35% by echocardiogram
Multivessel coronary artery disease by cath 06/2024
Pulmonary groundglass nodule status post bronchoscopy and biopsy 07/2024
Benign. Minimal atypical cells-follows up with Dr. Holt
Hypertension
Hyperlipidemia
Peripheral arterial disease status post right lower extremity stent
Former smoker-quit in 2005
Assessment and plan:
At this time, patient appears comfortable without complaints, however remains critically ill
In and out of atrial fibrillation/atrial flutter. Was given Lopressor, amiodarone yesterday, having occasional pauses
This morning, had an episode of torsade requiring 1 shock. Was given potassium and magnesium
Patient for ICD/pacemaker today, n.p.o.
Mild cough noted
Weaned off dobutamine as of 08/26
CXR 08/27 with mild right basilar atelectasis, small pleural effusion
Moving forward
Continue with management per CT surgery
Plan for PPM/ICD today
Presently off pressors
Echocardiogram 08/26 EF 45%, akinesis
CT drainage minimal
Follow-up per CT surgery
Received dose of Bumex x 3 yesterday, creatinine trending down to 1.1
Postoperative anemia noted, hemoglobin stable at 10.4
Platelets improving
Transfuse per CT surgery protocol
Chest tube output minimal
Blood sugars noted, insulin therapy as needed
Patient admits to stopping smoking
Right upper lobe lung nodule differential diagnosis includes adenocarcinoma in situ versus scarring.
As noted status post robotic bronchoscopy 07/31/2024 at [facility]-minimal atypical cells.
PET/CT reportedly showed no significant FDG avidity -Plan in the outpatient setting was to evaluate CT surgery in the future versus repeating biopsy. Patient is aware of this plan
It is encouraging that in our CAT scan here the size of the lung nodule decreased from 2.3 to 1.6 cm. Solid component of 4 mm remains stable.
Patient states she is not following up with Dr. 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
Pulmonary follow-up will be provided
Reviewed with critical care nursing
TCCT 31 min
Data
Pulmonary function testing 08/20/2024:
FEV1/FVC ratio 70%, FEV1 1.98 L - 86%, FVC 2.82 L having 95%.
T.51 L - 85%
RV 1.88 L - 88%.
RV/TLC ratio 42%
Diffusion capacity 12.08-61%.
DLCO/VA 98%.
-
No airflow obstruction. Preserved lung volumes. Moderately decreased diffusion capacity, corrects to normal when adjusted for alveolar volume.
Subjective Dataa
Subjective Data
Date of Service:
Date of Service: August 27, 2024
Subjective:
Events this morning noted. Rapid atrial flutter, IV Lopressor, IV amnio bolus. Noted to have pauses. 513 had an episode of torsade requiring 1 shock. Possible pacemaker plan for today noted. Presently patient is fatigued but denies chest pain.
She has a mild cough. She does have occasional palpitations but otherwise appears comfortable. Off dobutamine since yesterday
Objective Data
Data Reviewed
Vital Signs / I&O / Oxygen:
Vital Signs
Temp Pulse Resp BP Pulse Ox
98.3 F 67 10 116/68 95
08/27/24 07:38 08/27/24 07:45 08/27/24 07:45 08/27/24 07:41 08/27/24 07:45
Intake and Output
08/26/24 08/27/24 08/28/24
06:59 06:59 06:59
Intake Total 2656.8 / 2656.8 628.1 / 638.1
Output Total 2034 3275 / 3590 315 / 315
Balance 621.8 / 621.8 -2646.9 / -2951.9 -305 / -305
SaO2 [CPAP/PSV] 100
SaO2 [SIMV] 100
SaO2 95
Nasal Cannula flow liters per 5
minute
Physical Exam
General: Comfortable and Other (IJ, chest tube)
HEENT: Normocephalic and Anicteric
Cardiovascular: S1-S2, Regular Rhythm, Murmur (n) and Rub (n)
Respiratory: Wheeze (n), Crackles (n), Rhonchi (n), Non-Labored Respirations, Stridor (n), Chest Tube and Other (Slight decreased right side, no crepitus)
GI: Soft and Non Distended
Neurology: Awake, Alert and No Motor Deficits (Moves all extremities)
Skin: Cyanosis (n), Jaundice (n) and Rash (n)
Labs/Micro/Reports
Lab Data
08/27/24 04:45
08/27/24 04:45
Laboratory Results
08/26/24 08/27/24
09:42 04:45
PT 26.3 H 22.8 H
INR 2.36 1.96
--- NOTE | 2024-08-27 11:30 | PTCARENOTE ---
received patient post PPM/AICD placement. pt AAOX3, denies pain. Initially SR but then went into afib HR 140s- amio bolus and gtt ordered. left chest wall with pressure dressing, arm immobilizer in place. pt on 10L midflow nasal cannula, sat 92%.
[2024-08-27] MEDS: CORDARONE 103 MG IV ×2 (12:01→14:41)
--- NOTE | 2024-08-27 12:02 | CM ---
Reviewed chart. Met with Mrs. Garcia and her spouse to review discharge plans. She states she is feeling fine and had her PPM implant today. Will need to see her current functional status to see if she will have any skilled care needs. Prior to
admission she resides with her spouse in a two story home with one step to enter. She has to go up a full fight of steps to get to bedroom. She has a full bathroom on each floor. She can stay on the first floor if needed. Prior to admission she
was independent with ambulation and adls. She does not have any DME in the home. She has a prescription plan. We reviewed a home visit by the Transitional Care Nurse. She is agreeable to a home visit. Her spouse states he will be home to assist
in her care if needed. Medical work-up in progress. The discharge plan is to return home with her spouse and a home visit by the Transitional Care Nurse when medically stable.
[2024-08-27 12:08] LABS: Glucose - Point of Care 134 mg/dl (70-99)
[2024-08-27] MEDS: CORDARONE 518 MG IV (12:23)
--- NOTE | 2024-08-27 14:59 | PTCARENOTE ---
pt assisted OOB to chair with 2 assist and rolling walker
--- NOTE | 2024-08-27 15:02 | PN.CDI ---
CDI
- -
CDI:
Physician Documentation Request
Admit Date: 08/17/24 19:[address] surgery,
Clinical Indicators:
Patient admitted with NSTEMI; s/p/CABG, ELAA 08/24/24.
08/26 (19:45) RN note, 'POX decreasing to high 80s. pt placed on 15 L NRB mask- POX 95%. RT to place pt on 15 L midflow.'
08/27 (11:30) RN note, ' pt on 10L midflow nasal cannula, sat 92%.
08/27 RR trend:20-25/min
Please clarify which of the following accurately represents the patient's respiratory status:
Acute hypoxic respiratory failure
Hypoxia only
Other, please specify
Additional information for Respiratory Failure:
Recognized criteria for Respiratory Failure (Source: [facility] Hospitalist Mar 2013)
ABGs: (1 or more) Symptoms Indicate:
1. p)2 <60 or RA SPO2 <91% on RA 1. Tachypnea, SOB, dyspnea 1. Type as:
2. pCO2 50 and pH <7.35 2. Use of accessory muscles a. Hypoxic
3. pO2 decrease of pCO2 increase by 3. Pallor or cyanosis b. Hypercapnic
10 mmHg from baseline if known 4. Anxiety or restlessness 2. If due to procedure or due to another cause
5. Unable to speak in full sentences
Supplemental O2 of > 40% Intubation is not required
Use of terms such as suspected, likely, concern for, or probable (associated with a specific diagnosis that is being evaluated, monitored, or treated as if it exists) are acceptable and can be coded in the inpatient setting, when documented at the
time of discharge.
Thank you,
Linda Mares RN BSN
CDI Specialist
available via tiger text
Please use your independent medical judgment in providing your response.
--- NOTE | 2024-08-27 15:09 | PN.CDI ---
CDI
- -
CDI:
Physician Documentation Request
Admit Date: 08/17/24 19:[address] Surgery,
Clinical Indicators:
Patient admitted with NSTEMI; s/p/CABG, ELAA 08/24/24.
08/24 Update note, 'CAD/NSTEMI/HFrEF'
08/27 CXR report, 'Findings raise concern for development of pneumonia, versus asymmetric interstitial edema.'
08/27 PN, '-appears volume overloaded. got Bumex X 3 doses on 08/26...(elevated JVP, + JVD)'
08/27 Cath report, PCWP: 11 mmHg
Please provide further specificity regarding the most likely acuity of CHF you are evaluating, treating or monitoring.
Acute on chronic HFrEF
Acute HFrEF
Chronic HFrEF
Other, please specify
Use of terms such as suspected, likely, concern for, or probable (associated with a specific diagnosis that is being evaluated, monitored, or treated as if it exists) are acceptable and can be coded in the inpatient setting, when documented at the
time of discharge.
Thank you,
Linda Mares RN BSN
CDI Specialist
available via tiger text
Please use your independent medical judgment in providing your response.
[2024-08-27] MEDS: PACERONE 200 MG PO ×2 (15:21→20:38)
[2024-08-27] MEDS: NSS 500 IV (16:19)
[2024-08-27] MEDS: ANCEF 5 IV (16:19)
[2024-08-27 17:05] LABS: Glucose - Point of Care 164 mg/dl (70-99)
--- NOTE | 2024-08-27 18:39 | PTCARENOTE ---
pt remains OOB in chair, family at bedside. pt ate small amount of dinner. remains on 10 L midflow nasal cannula. no further changes in assessment noted.
--- NOTE | 2024-08-27 20:00 | PTCARENOTE ---
assumed care of pt from previous RN. pt A&Ox4, resting in chair at time of assessment. a flutter/a fib on tele-monitor. s/p PPM/AICD. settings DDDR 70-130. arm immobilizer in place. POX 93-95% on [address] x2 (R & L pleural) to -20cm
wall suction, draining serosanguineous drainage. abd s/n, +BS. pt confirms poor appetite. sun catheter draining clear, yellow urine. all surgical sites stable, CDI. R IJ Cordis w/ KVO. PIV leaking, d/c'd. see worklist for complete nursing
assessment, interventions, VS, and I&Os.
[2024-08-27] MEDS: TOPROL XL 12.5 MG PO (20:10)
[2024-08-27 20:24] LABS: Blood Urea Nitrogen 29 mg/dl (7-17); Calcium 8.6 mg/dl (8.4-10.2); Carbon Dioxide 35 mmol/L (22-30); Chloride 86 mmol/L (98-107); Estimated Creatinine Clearance 52 ml/min; Glucose 155 mg/dl (70-99); Magnesium 2.1 mg/dl (1.6-2.3); Potassium 3.2 mmol/L (3.5-5.1); Sodium 130 mmol/L (135-145); eGFR > 60.00
[2024-08-28] VITALS (24 sets, daily range): BP systolic 102–152; BP diastolic 52–83; BMI 18.5
--- NOTE | 2024-08-28 | PTCARENOTE ---
no acute changes. VSS. 100% a-paced w/ PPM.
[2024-08-28] MEDS: ANCEF 5 IV (01:03)
--- NOTE | 2024-08-28 03:30 | PTCARENOTE ---
assessment remains unchanged. VSS. O2 requirement [id number];
--- NOTE | 2024-08-28 03:30 | PTCARENOTE ---
no acute changes. VSS. O2 requirement decreasing. AM labs collected and sent. EKG completed. AM plan of care discussed, pt in agreement.
[2024-08-28 03:43] LABS: Hematocrit 30.1 % (37.0-47.0); Hemoglobin 10.1 g/dL (12.0-16.0); Mean Corp Hgb Conc. 33.6 g/dL (33.0-37.0); Mean Corpuscular Hgb 31.3 pg (27.0-31.0); Mean Corpuscular Volume 93.2 fL (81.0-99.0); Mean Platelet Volume 12.4 fL (7.4-10.4); Platelet Count 128 10^3/uL (130-400); Red Blood Cell Count 3.23 10^6/uL (4.20-5.40); Red Cell Dist. Width 13.7 % (11.5-14.5); White Blood Cell Count 13.8 10^3/uL (4.8-10.8)
[2024-08-28 03:50] LABS: PT 19.6 Sec (11.4-14.6)
[2024-08-28 04:33] LABS: ALT (SGPT) 568 U/L (0-35); AST (SGOT) 564 U/L (14-36); Albumin 3.7 g/dl (3.5-5.0); Alkaline Phosphatase 117 U/L (38-126); Blood Urea Nitrogen 27 mg/dl (7-17); Calcium 8.7 mg/dl (8.4-10.2); Carbon Dioxide 35 mmol/L (22-30); Chloride 88 mmol/L (98-107); Direct Bilirubin 0.5 mg/dl (0.0-0.4); Estimated Creatinine Clearance 52 ml/min; Glucose 133 mg/dl (70-99); Magnesium 2.2 mg/dl (1.6-2.3); Potassium 4.1 mmol/L (3.5-5.1); Sodium 130 mmol/L (135-145); TSH 1.82 uIU/ml (0.47-4.68); Total Bilirubin 1.7 mg/dl (0.2-1.3); Total Protein 5.4 g/dl (6.3-8.2); eGFR > 60.00
--- NOTE | 2024-08-28 07:31 | W.PN.CT ---
Addendum entered and electronically signed by NAOMI Rodriguez 08/28/24 13:50:
CDI QUERY RESPONSE:
Acute hypoxic respiratory failure
Acute on chronic HFrEF
Original Note:
Today's Communication / Plan
-
-pod #4
-no issues overnight
-drip: Amio 0.5 for paf
-s/p ICD implant 08/27
-RHC during icd implant revealed that she may be volume depleted - will hold further Bumex
-started on Toprol and po Amio
-CT output: 2 pleur 420/710 in 12/24 hrs (serosang)
-wean off O2 as tolerated
-follow LFTs
-follow 2v-CXR
-encourage IS
Assessment / Plan
-
Assessment:
-S/P Median sternotomy/CABG x 3 (EARL to LAD, GSV to RI, GSV to RPLB)/Endoscopic harvest/prep of RLE GSV/ELAA (40mm AtriClip), by Dr. Gould, 08/24/24, pod#4
-S/P Medtronic ICD placement by Dr. Ceja on 08/27/24
-Severe 3v CAD
-NSTEMI (peak trop 0.243)
-ICM
-LVEF 30-35%, 40-45 postop per intraop GLADYS
-Mild MR
-Plavix washout
-RUL Lung Nodule S/P bronchoscopy and biopsy, 07/31/2024 (Benign)
-Former tobacco use (quit 2005)
-HTN
-HLD
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
-Anemia
-S/P hysterectomy
-S/p cholecystectomy
-Acute postop blood loss Anemia on chronic anemia(transfused 1u PRBC intraop)
-Acute postop atelectasis
-Acute postop hypovolemia with subsequent hypervolemia
-Acute postop bradycardia (30's)/junctional rhythm
-Acute postop hypotension, SBP 60's
-Acute postop NAVEEN
-Acute postop transaminitis /elevated INR
-Acute postop lactic acidosis, likely from Epinephrine
-Acute postop a-fib with tachy/dolores syndrome and conversion pauses upto 3-4 sec
-Acute postop Cardiac arrest/Torsades on 08/27/24 - required 1 shock
Discussed patient care with: Nursing and Care Team
Subjective
Procedure
-S/P Median sternotomy/CABG x 3 (EARL to LAD, GSV to RI, GSV to RPLB)/Endoscopic harvest/prep of RLE GSV/ELAA (40mm AtriClip), by Dr. Gould, 08/24/24
-
Date of Service: August 28, 2024
Objective Data
-
PT 22.8 Sec (11.4-14.6) H 08/27/24 04:45
INR 1.96 08/27/24 04:45
APTT 24.5 Sec (23.4-35.0) 08/24/24 19:36
Vital Signs
Vital Signs
Temp Pulse Resp BP Pulse Ox
97.6 F 70 11 105/53 99
08/27/24 20:00 08/27/24 23:00 08/27/24 23:00 08/27/24 23:00 08/27/24 23:00
CT Intake/Output/Weight
08/27/24 08/27/24 08/28/24
06:59 18:59 06:59
Intake Total 373 / 638.1 756.5 / 889.9 133.4 / 889.9
Output Total 2400 / 3590 2885 / 3615 730 / 3615
Balance -7 / -2951.9 -2128.5 / -2725.1 -596.6 / -2725.1
SaO2: 99
Physical Exam
-
General: Awake and AOx3
Cardiovascular: Regular rate & rhythm, No Murmurs and No Rub
Respiratory: Decreased Breath Sounds
Sternum: Stable
Incision: Clean, Dry and Intact
Extremities: No Edema
Abdomen: soft, nontender, nondistended, + bowel sounds
Data Reviewed
-
Lab Results: Results Reviewed
Medications: Active Meds Reviewed
Chest X-Ray: Report Reviewed and Image Reviewed
ECG: Report Reviewed and Image Reviewed
--- NOTE | 2024-08-28 07:53 | W.PN.INTV ---
Today's Communication / Plan
Recommendations
Subjectively improving
Remains on amiodarone drip
Appears less fatigued today
Transaminitis improved
Creatinine improved
Out of bed to chair, ambulate
Assessment
-
74-year-old woman with past medical history noted. Transferred from [facility] for evaluation of CABG. On CAT scan she has a right upper lobe groundglass opacity status post robotic bronchoscopy tissue sampling at -07/31 that was
benign-atypical cells found.
We were consulted on 08/19/2024 for preop pulmonary assessment.
Pt is now s/p CABG
-
S/p CAB x 3 on 08/24/24
Post GLADYS EF 40%
On norepinephrine, dobutamine, Precedex, insulin
Brief torsade 08/27/22 at am, s/p shock x 1
s/p ICD/PPM/3
Right upper lobe pulmonary nodule-groundglass
CT chest 08/18/2024: No acute disease of the chest. Moderate atherosclerosis. Right upper lobe groundglass/minimal solid about 4 mm component with cystic component opacity-1.6X 1.[address] chest 07/31/2024: Reported 2.3X 1.1 cm groundglass nodule on the right upper lobe with 4 mm solid component.
Mild paraseptal emphysema
Multivessel coronary artery disease-ischemic cardiomyopathy-unstable angina
Echocardiogram 08/18/2024: Ejection fraction 30 to 35%, mid anteroseptal, mid septal and mid inferior and apical akinesis, stage I diastolic dysfunction.
-
Conditions present prior admission:
Ischemic cardiomyopathy ejection fraction 30 to 35% by echocardiogram
Multivessel coronary artery disease by cath 06/2024
Pulmonary groundglass nodule status post bronchoscopy and biopsy 07/2024
Benign. Minimal atypical cells-follows up with Dr. Holt
Hypertension
Hyperlipidemia
Peripheral arterial disease status post right lower extremity stent
Former smoker-quit in 2005
Assessment and plan:
At this time, patient appears comfortable without complaints
Currently on amiodarone
ICD placed 08/27, episode of torsade requiring 1 shock prior with in and out of atrial fibrillation/flutter, junctional rhythm.
Now on amiodarone
Mild cough noted
Weaned off dobutamine as of 08/26
CXR 08/27 with mild right basilar atelectasis, small pleural effusion
No chest x-ray today
Moving forward
Continue with management per CT surgery
Echocardiogram 08/26 EF 45%, akinesis
Amiodarone continues
CT drainage minimal
Follow-up per CT surgery
Received dose of Bumex x 3 yesterday, creatinine trending down, today 0.8
Postoperative anemia noted, hemoglobin stable
Platelets improving
Transfuse per CT surgery protocol
Chest tube output minimal
Blood sugars noted, insulin therapy as needed
Transaminitis noted
Trending down
Patient admits to stopping smoking
Right upper lobe lung nodule differential diagnosis includes adenocarcinoma in situ versus scarring.
As noted status post robotic bronchoscopy 07/31/2024 at [facility]-minimal atypical cells.
PET/CT reportedly showed no significant FDG avidity -Plan in the outpatient setting was to evaluate CT surgery in the future versus repeating biopsy. Patient is aware of this plan
Patient requesting follow-up locally, does not want to follow-up with Dr. Yanet Gardner who is now a leather stripping machine operator doctor and patient cannot afford to see her.
BCMA info left in chart
It is encouraging that CT chest at [facility], the size of the lung nodule decreased from 2.3 to 1.6 cm (however groundglass nature this is leach cell operator dependent) Solid component of 4 mm remains stable.
Reviewed with critical care nursing
Data
Pulmonary function testing 08/20/2024:
FEV1/FVC ratio 70%, FEV1 1.98 L - 86%, FVC 2.82 L having 95%.
T.51 L - 85%
RV 1.88 L - 88%.
RV/TLC ratio 42%
Diffusion capacity 12.08-61%.
DLCO/VA 98%.
-
No airflow obstruction. Preserved lung volumes. Moderately decreased diffusion capacity, corrects to normal when adjusted for alveolar volume.
Subjective Dataa
Subjective Data
Date of Service:
Date of Service: August 28, 2024
Subjective:
Patient examined earlier this morning, sitting in chair. She feels somewhat improved. She continues to have mild cough, mild incisional discomfort but otherwise denies nausea, abdominal pain
Objective Data
Data Reviewed
Vital Signs / I&O / Oxygen:
Vital Signs
Temp Pulse Resp BP Pulse Ox
98.4 F 88 29 102/81 93
08/28/24 04:00 08/28/24 07:00 08/28/24 07:00 08/28/24 07:00 08/28/24 06:30
Intake and Output
08/27/24 08/28/24 08/29/24
06:59 06:59 06:59
Intake Total 628.1 / 638.1 1176.8 / 1176.8
Output Total 3275 / 3590 4010 / 4010
Balance -2646.9 / -2951.9 -2833.2 / -2833.2
SaO2 [CPAP/PSV] 100
SaO2 [SIMV] 100
SaO2 93
Nasal Cannula flow liters per 5
minute
Physical Exam
General: Comfortable, Other (IJ, chest tube) and Other (Left anterior chest dressing for ICD)
HEENT: Normocephalic and Anicteric
Cardiovascular: S1-S2, Regular Rhythm, Murmur (n) and Rub (n)
Respiratory: Wheeze (n), Crackles (n), Rhonchi (n), Non-Labored Respirations, Stridor (n), Chest Tube and Other (Slight decreased right side, no crepitus)
GI: Soft and Non Distended
Neurology: Awake, Alert and No Motor Deficits (Moves all extremities)
Skin: Cyanosis (n), Jaundice (n) and Rash (n)
Labs/Micro/Reports
Lab Data
08/28/24 03:21
08/28/24 03:21
Laboratory Results
08/28/24
03:21
PT 19.6 H
INR 1.60
[2024-08-28] MEDS: TOPROL XL 12.5 MG PO ×2 (08:40→09:11)
[2024-08-28] MEDS: PACERONE 200 MG PO ×3 (08:41→20:57)
[2024-08-28] MEDS: FEOSOL 325 MG PO (08:41)
[2024-08-28] MEDS: MAGNESIUM OXIDE 500 MG PO ×2 (08:41→20:35)
[2024-08-28] MEDS: NEURONTIN 100 MG PO ×3 (08:41→23:03)
[2024-08-28] MEDS: LOW STRENGTH ASPIRIN 81 MG PO (08:41)
[2024-08-28] MEDS: PROTONIX 40 MG PO (08:41)
[2024-08-28] MEDS: VITAMIN C 500 MG PO (08:41)
[2024-08-28] MEDS: SENOKOT-S 1 TABLET PO ×2 (08:41→20:35)
[2024-08-28] MEDS: PLAVIX 75 MG PO (08:41)
[2024-08-28] MEDS: BACTROBAN 2% OINTMENT 1 APPLIC NASAL (08:42)
[2024-08-28] MEDS: LIDOCAINE 4% PATCH 1 PATCH TOPICAL (08:43)
[2024-08-28] MEDS: FLEXBUMIN 50 IV ×3 (09:11→23:36)
--- NOTE | 2024-08-28 10:06 | PTCARENOTE ---
Rec'd pt this shift awake and alert on 2l n/c oxygen. Pt in and out of Afib this am and A-paced rhythm. Pt with left arm immobilizer in place. Oxygen increased to 6l n/c oxygen. Pulse ox 94%, encouraged coughing and deep breathing and use of IS. AM
meds given. See worklist for VS/I and O and assessments.
--- NOTE | 2024-08-28 11:19 | PTCARENOTE ---
Pressure dsg and Left arm immobilizer removed.
--- NOTE | 2024-08-28 11:58 | CM ---
Reviewed chart. Met with and Mrs. Garcia to review discharge plans. She states she is feeling well. We reviewed a home visit by the Transitional Care Nurse. She is agreeable to a home visit. Prior to admission she resides with her spouse in a
two story home with one steps to enter. She has a full flight of steps to get to bedroom. She has a full bathroom on each floor. Prior to admission she was independent with ambulation and adls. She does not have any DME in the home. Will need to
see her current functional level to see if she will have any skilled care needs. Her spouse will be home to assist in her care if needed. Medical work-up in progress. The discharge plan is to return home with spouse and home visit by the
Transitional Care Nurse when medically stable.
[2024-08-28] MEDS: LASIX 20 MG IV ×2 (12:13→17:19)
[2024-08-28] MEDS: NSS 500 IV (14:21)
--- NOTE | 2024-08-28 15:20 | W.PN.CARDCBS ---
Addendum entered and electronically signed by oRb Bond MD 08/28/24 15:36:
I saw and examined the patient.
The BLOOD BANK LABORATORY TECHNICIAN or PA's note was reviewed and I agree with the note.
Comment: General: Well developed, well nourished in NAD.
Neck: Supple, no JVD, HJR, carotids +2 B/L, no bruits bilaterally.
Heart: Non displaced PMI, RRR, no murmurs, No S3, S4, no rubs.
Lungs: Scattered rhonchi
Sternal dressings noted
Extremities: No clubbing, cyanosis or edema bilaterally.
Neuro: Grossly nonfocal, awake, alert and oriented x3.
AV paced at present. Eventual anticoagulation. Continue beta-jay and amiodarone. Discussed with nursing.
Original Note:
Today's Communication / Plan
-
continue post op care
follow rhythm. continue BB/amio
eventual OAC
Impression / Plan
-
PCP: Dr. Fran Del Cid
Industrial Automation Specialist: Dr. Liang
Impression:
Presented to ER from outpatient [place] cardiology office with abnormal cardiac cath and back pain 08/17/2024
NSTEMI, peak Troponin 0.243
CAD with MV CAD by cardiac cath at [facility] 06/2024
s/p CABG x3 (EARL to LAD, GSV to RI, GSV to PLB), ELAA w/ 40 mm AtriClip 08/24/2024Ischemic CM EF 30 to 35% by echo 08/18/2024, EF 42% by intraop GLADYS
Post op junctional rhythm, appears to be improving
Post op PAF with RVR
Pulmonary nodule s/p bronchoscopy and biopsy was reportedly negative pathology for malignancy 06/2024
Patient reports that pathology report recommended repeat biopsy for monitoringHTN
Hyperlipidemia
PAD s/p RLE PERISHABLE FRUIT INSPECTOR and stent
Former smoker
Echo 08/18/2024: EF 30 to 35%, mid anteroseptal, mid septal, mid inferior and apical akinesis, stage I diastolic
Intraop GLADYS 08/24/24: EF 42%, mid to apical anterior/anteroseptal/septal hypokinesis, mid to apical inferior hypokinesis, mild cLVH, stage 1 diastolic dysfunction, mild MR, mod sessile atheroma in descending aorta, mild sessile atheroma in distal arch
ECHO 08/26/24: EF 45 to 50%, akinesis of mid to apical septum, apex, apical anterior sun, no significant effusion noted
Plan:
-Presented to [facility] from OP [facility] cardiology office w/ abnormal cardiac cath and back pain.
-[facility] 06/2024 noted MV CAD and underwent CABG x3 (EARL to LAD, GSV to RI, GSV to PLB), ELAA w/ 40 mm AtriClip 08/24/2024.
-08/27 had VF arrest - afib degenerated to VF s/p shock x1. s/p Medtronic ICD for secondary prevention 08/27/24.
-off pressors
-remains in and out of afib. s/p IV amio, now on po amio and BB. eventual OAC
-at time of ICD, RHC with wedge of 11. did get dose of lasix today
-Cr improved. LFTs downtrending.
-wean supp O2 as able.
-continue asa, plavix, statin
-continue post op care, IS
-d/w nursing, CT surgery BLOOD BANK LABORATORY TECHNICIAN
HPI: Patient was seen as a new patient at [facility] office on 08/17/2024 due to history of abnormal cardiac cath and was referred to ER and is now admitted with consultation to cardiology. Patient used to work at [facility]. She had a shoulder injury
prompting an x-ray that showed a pulmonary nodule. She then followed up with a support engineer out of [facility] and was recommended bronchoscopy with biopsy that was performed 06/2024. Patient reports that the pathology was negative for malignancy, but
that in either the bronchoscopy report or the pathology report it was recommended that she have a repeat bronchoscopy and biopsy in about 6 months. Patient reports that as part of the workup for bronchoscopy she had an ECG that was abnormal and had
cardiac cath performed by Dr. Yves Lund at [facility]. Patient recalls being told that her cardiac cath was abnormal and that the plan was for her to complete her bronchoscopy and biopsy and following that she would have an intervention so as to not
interrupt DAPT. Patient says that it has been 1 month since her bronchoscopy and so she followed up with her PCP who arranged for her to see a tool adjuster at another [facility] which was performed yesterday. Cardiac cath films were reviewed by
cardiology at the [facility] office and felt to be abnormal. Patient has possible angina symptoms of upper back tightness and has been having the symptoms at rest. Patient was then referred to ER. Serial troponin in the ER was elevated, peak thus far
0.155. Patient denies any chest or back pain at this time.
Progress Note - Industrial Automation Specialist
Subjective
Date of Service: August 28, 2024
no significant pain. remains with palpitations
Objective
Labs:
08/28/24 03:21
08/28/24 03:21
Labs
Hgb 10.1 g/dL (12.0-16.0) L 08/28/24 03:21
Hct 30.1 % (37.0-47.0) L 08/28/24 03:21
Plt Count 128 10^3/uL (130-400) L D 08/28/24 03:21
PT 19.6 Sec (11.4-14.6) H 08/28/24 03:21
INR 1.60 08/28/24 03:21
APTT 24.5 Sec (23.4-35.0) 08/24/24 19:36
Sodium 130 mmol/L (135-145) L 08/28/24 03:21
Potassium 4.1 mmol/L (3.5-5.1) D 08/28/24 03:21
BUN 27 mg/dl (7-17) H 08/28/24 03:21
Creatinine 0.8 mg/dL (0.6-1.0) 08/28/24 03:21
Glucose 133 mg/dl (70-99) H 08/28/24 03:21
Vital Signs and I&O:
Vital Signs
Temp Pulse Resp BP Pulse Ox
97.7 F 125 18 129/63 97
08/28/24 15:17 08/28/24 15:04 08/28/24 15:17 08/28/24 15:04 08/28/24 15:17
Vital Signs
Temp Pulse Resp BP Pulse Ox
97.7 F 125 18 129/63 97
08/28/24 15:17 08/28/24 15:04 08/28/24 15:17 08/28/24 15:04 08/28/24 15:17
Intake & Output
08/26/24 08/27/24 08/28/24 08/29/24
07:59 07:59 07:59 07:59
Intake Total 2298.4 / 2319.9 638.1 / 658.1 1166.8 / 1166.8 1066.7 / 1066.7
Output Total 1979 3590 / 3650 3695 / 3695 750 / 750
Balance 318.4 / 229.9 -2951.9 / -2991.9 -2528.2 / -2528.2 316.7 / 316.7
Physical Exam
Physical Exam
GEN: No distress, awake, alert, oriented x3. on supp O2
HEENT: supple, anicteric, mmm, eomi
LUNGS: CTA B/L, no wheezes/rales
CV: Irreg, S1/S2, no murmur
EXT: No cyanosis, clubbing, edema
NEURO: Gross non-focal
SKIN: Warm, pink, dry. No rash. Sternotomy dressing c/d/i. ICD dressing c/d/i
[2024-08-28 17:01] LABS: Blood Urea Nitrogen 22 mg/dl (7-17); Calcium 8.3 mg/dl (8.4-10.2); Carbon Dioxide 34 mmol/L (22-30); Chloride 85 mmol/L (98-107); Estimated Creatinine Clearance 52 ml/min; Glucose 127 mg/dl (70-99); Potassium 3.5 mmol/L (3.5-5.1); Sodium 127 mmol/L (135-145); eGFR > 60.00
[2024-08-28] MEDS: LOPRESSOR 25 MG PO (17:19)
[2024-08-28] MEDS: KCL 40 MEQ PO (17:19)
[2024-08-28] MEDS: TOPROL XL 50 MG PO (23:02)
[2024-08-28] MEDS: KCL 20 MEQ PO (23:03)
[2024-08-29] VITALS (10 sets, daily range): BP systolic 107–136; BP diastolic 55–68; PULSE 70; O2SAT 96–98; BMI 18.3
--- NOTE | 2024-08-29 01:54 | PTCARENOTE ---
Pt. rec'd at beginning of shift in bed awake, pleasant AAOx3. VSS, mostly A-paced with some NSR on the monitor in the 70's. Lungs diminished t/o, pulse ox on 5L O2 94-97%. B/L pleural CT's present to -20 cm H2O suction draining small amt. SS
fluid, no air leaks/crepitus assessed. CT dressings CDI (changed on days per report). Alonso draining clear yellow urine, no BM's so far this shift. Left chest wall ICD site and sternal dressings CDI. Pt. downgraded to CV-tele status this shift.
Currently sleeping.
[2024-08-29 04:37] LABS: Hematocrit 27.6 % (37.0-47.0); Hemoglobin 9.5 g/dL (12.0-16.0); Mean Corp Hgb Conc. 34.4 g/dL (33.0-37.0); Mean Corpuscular Hgb 31.7 pg (27.0-31.0); Mean Platelet Volume 11.9 fL (7.4-10.4); Platelet Count 129 10^3/uL (130-400); Red Cell Dist. Width 13.4 % (11.5-14.5); White Blood Cell Count 13.3 10^3/uL (4.8-10.8)
--- NOTE | 2024-08-29 04:56 | W.PN.CT ---
Today's Communication / Plan
-
-pod #5
-no issues overnight, looks and feels better overall
-drips: none
-remained in nsr overnight. Toprol increased to 50 bid. Continue po Amio
-LFTs improving
-CT outputs: 2 pleur 30/260 in 12/24 hrs
-diuresing well. UO 900/2230 in 12/24 hrs
-Cr is at baseline - 0.8 (peak 1.4). Na continues to trend down - 127 today
-d/c Alonso
-metabolic alkalosis, likely from diuresis
-Eliquis is ordered for 4/6 pm. Will likely d/c Plavix at that time
-encourage IS, ambulate
Assessment / Plan
-
Assessment:
-S/P Median sternotomy/CABG x 3 (EARL to LAD, GSV to RI, GSV to RPLB)/Endoscopic harvest/prep of RLE GSV/ELAA (40mm AtriClip), by Dr. Gould, 08/24/24, pod#5
-S/P Medtronic ICD placement by Dr. Ceja on 08/27/24
-Severe 3v CAD
-NSTEMI (peak trop 0.243)
-ICM
-LVEF 30-35%, 40-45 postop per intraop GLADYS
-Mild MR
-Plavix washout
-RUL Lung Nodule S/P bronchoscopy and biopsy, 07/31/2024 (Benign)
-Former tobacco use (quit 2005)
-HTN
-HLD
-Severe PAD S/p RLE AVIATION ELECTRICAL TECHNICIAN and stent x 2 (on Plavix)
-Anemia
-S/P hysterectomy
-S/p cholecystectomy
-Acute postop blood loss Anemia on chronic anemia(transfused 1u PRBC intraop)
-Acute postop atelectasis
-Acute postop hypovolemia with subsequent hypervolemia
-Acute postop bradycardia (30's)/junctional rhythm
-Acute postop hypotension, SBP 60's
-Acute hypoxic respiratory failure
-Acute on chronic systolic CHF
-Acute postop NAVEEN- resolved
-Acute postop transaminitis /elevated INR- improving
-Acute postop lactic acidosis, likely from Epinephrine
-Acute postop a-fib with tachy/dolores syndrome and conversion pauses upto 3-4 sec
-Acute postop Cardiac arrest/Torsades on 08/27/24 - required 1 shock
-Acute postop hyponatremia
-Acute postop metabolic alkalosis, likely d/t diuresis
Discussed patient care with: Nursing and Care Team
Subjective
Procedure
-S/P Median sternotomy/CABG x 3 (EARL to LAD, GSV to RI, GSV to RPLB)/Endoscopic harvest/prep of RLE GSV/ELAA (40mm AtriClip), by Dr. Gould, 08/24/24
-
Date of Service: August 29, 2024
Objective Data
-
Lab Results
08/29/24 04:07
PT 19.6 Sec (11.4-14.6) H 08/28/24 03:21
INR 1.60 08/28/24 03:21
APTT 24.5 Sec (23.4-35.0) 08/24/24 19:36
Vital Signs
Vital Signs
Temp Pulse Resp BP Pulse Ox
98.9 F 70 20 115/68 92
08/29/24 04:00 08/29/24 04:00 08/29/24 04:00 08/29/24 03:58 08/29/24 04:00
CT Intake/Output/Weight
08/28/24 08/28/24 08/29/24
06:59 18:59 06:59
Intake Total 420.3 / 1176.8 1563.4 / 2283.4 720 / 2283.4
Output Total 1125 / 4010 1560 / 2490 930 / 2490
Balance -704.7 / -2833.2 3.4 / -206.6 -210 / -206.6
SaO2: 92
Physical Exam
-
General: Awake and AOx3
Cardiovascular: Regular rate & rhythm, No Murmurs and No Rub
Respiratory: Decreased Breath Sounds
Sternum: Stable
Incision: Clean, Dry and Intact
Abdomen: soft, nontender, nondistended, + bowel sounds
Extremities: No Edema
Data Reviewed
-
Lab Results: Results Reviewed
Medications: Active Meds Reviewed
Chest X-Ray: Report Reviewed and Image Reviewed
ECG: Report Reviewed and Image Reviewed
[2024-08-29 04:58] LABS: ALT (SGPT) 252 U/L (0-35); AST (SGOT) 159 U/L (14-36); Albumin 3.4 g/dl (3.5-5.0); Alkaline Phosphatase 112 U/L (38-126); Blood Urea Nitrogen 19 mg/dl (7-17); Calcium 8.7 mg/dl (8.4-10.2); Carbon Dioxide 35 mmol/L (22-30); Chloride 85 mmol/L (98-107); Direct Bilirubin 0.5 mg/dl (0.0-0.4); Estimated Creatinine Clearance 52 ml/min; Glucose 120 mg/dl (70-99); Magnesium 2.1 mg/dl (1.6-2.3); Potassium 4.1 mmol/L (3.5-5.1); Sodium 127 mmol/L (135-145); Total Protein 5.2 g/dl (6.3-8.2); eGFR > 60.00
[2024-08-29] MEDS: FLEXBUMIN 50 IV (08:19)
[2024-08-29] MEDS: PROTONIX 40 MG PO (08:20)
[2024-08-29] MEDS: FEOSOL 325 MG PO (08:20)
[2024-08-29] MEDS: SENOKOT-S 1 TABLET PO ×2 (08:20→20:48)
[2024-08-29] MEDS: VITAMIN C 500 MG PO (08:20)
[2024-08-29] MEDS: LOW STRENGTH ASPIRIN 81 MG PO (08:20)
[2024-08-29] MEDS: MAGNESIUM OXIDE 500 MG PO ×2 (08:20→20:47)
[2024-08-29] MEDS: NEURONTIN 100 MG PO ×3 (08:20→22:28)
[2024-08-29] MEDS: PACERONE 200 MG PO ×3 (08:20→22:29)
[2024-08-29] MEDS: LIDOCAINE 4% PATCH 1 PATCH TOPICAL (08:21)
[2024-08-29] MEDS: TOPROL XL 50 MG PO ×2 (08:21→20:47)
--- NOTE | 2024-08-29 09:03 | W.PN.CARDCBS ---
Today's Communication / Plan
-
Stable cardiology status status post CABG
Impression / Plan
-
PCP: Dr. Fran Del Cid
Cooling Pan Tender: Dr. Liang
Impression:
Presented to ER from outpatient [place] cardiology office with abnormal cardiac cath and back pain 08/17/2024
NSTEMI, peak Troponin 0.243
CAD with MV CAD by cardiac cath at [facility] 06/2024
s/p CABG x3 (EARL to LAD, GSV to RI, GSV to PLB), ELAA w/ 40 mm AtriClip 08/24/2024Ischemic CM EF 30 to 35% by echo 08/18/2024, EF 42% by intraop GLADYS
Post op junctional rhythm, appears to be improving
Post op PAF with RVR
Pulmonary nodule s/p bronchoscopy and biopsy was reportedly negative pathology for malignancy 06/2024
Patient reports that pathology report recommended repeat biopsy for monitoringHTN
Hyperlipidemia
PAD s/p RLE SENIOR PRODUCT CONSULTANT and stent
Former smoker
Echo 08/18/2024: EF 30 to 35%, mid anteroseptal, mid septal, mid inferior and apical akinesis, stage I diastolic
Intraop GLADYS 08/24/24: EF 42%, mid to apical anterior/anteroseptal/septal hypokinesis, mid to apical inferior hypokinesis, mild cLVH, stage 1 diastolic dysfunction, mild MR, mod sessile atheroma in descending aorta, mild sessile atheroma in distal arch
ECHO 08/26/24: EF 45 to 50%, akinesis of mid to apical septum, apex, apical anterior sun, no significant effusion noted
Plan:
-[facility] from [facility] cardiology office w/ abnormal cardiac cath and back pain.
-[facility] 06/2024 noted MV CAD and underwent CABG x3 (EARL to LAD, GSV to RI, GSV to PLB), ELAA w/ 40 mm AtriClip 08/24/2024.
-08/27 had VF arrest - afib degenerated to VF s/p shock x1. s/p Medtronic ICD for secondary prevention 08/27/24.
She continues to do well
Remains AV paced
She is currently on Eliquis
? Will need rehab
HPI: Patient was seen as a new patient at [facility] office on 08/17/2024 due to history of abnormal cardiac cath and was referred to ER and is now admitted with consultation to cardiology. Patient used to work at [facility]. She had a shoulder injury
prompting an x-ray that showed a pulmonary nodule. She then followed up with a wind tunnel engineer out of [facility] and was recommended bronchoscopy with biopsy that was performed 06/2024. Patient reports that the pathology was negative for malignancy, but
that in either the bronchoscopy report or the pathology report it was recommended that she have a repeat bronchoscopy and biopsy in about 6 months. Patient reports that as part of the workup for bronchoscopy she had an ECG that was abnormal and had
cardiac cath performed by Dr. Yves Lund at [facility]. Patient recalls being told that her cardiac cath was abnormal and that the plan was for her to complete her bronchoscopy and biopsy and following that she would have an intervention so as to not
interrupt DAPT. Patient says that it has been 1 month since her bronchoscopy and so she followed up with her PCP who arranged for her to see a industrial ecology technician at another [facility] which was performed yesterday. Cardiac cath films were reviewed by
cardiology at the [facility] office and felt to be abnormal. Patient has possible angina symptoms of upper back tightness and has been having the symptoms at rest. Patient was then referred to ER. Serial troponin in the ER was elevated, peak thus far
0.155. Patient denies any chest or back pain at this time.
Progress Note - Cooling Pan Tender
Subjective
Date of Service: August 29, 2024
No complaints
Objective
Labs:
08/29/24 04:07
08/29/24 04:07
Labs
Hgb 9.5 g/dL (12.0-16.0) L 08/29/24 04:07
Hct 27.6 % (37.0-47.0) L 08/29/24 04:07
Plt Count 129 10^3/uL (130-400) L 08/29/24 04:07
PT 19.6 Sec (11.4-14.6) H 08/28/24 03:21
INR 1.60 08/28/24 03:21
APTT 24.5 Sec (23.4-35.0) 08/24/24 19:36
Sodium 127 mmol/L (135-145) L 08/29/24 04:07
Potassium 4.1 mmol/L (3.5-5.1) 08/29/24 04:07
BUN 19 mg/dl (7-17) H 08/29/24 04:07
Creatinine 0.8 mg/dL (0.6-1.0) 08/29/24 04:07
Glucose 120 mg/dl (70-99) H 08/29/24 04:07
Vital Signs and I&O:
Vital Signs
Temp Pulse Resp BP Pulse Ox
98.9 F 79 13 115/68 92
08/29/24 04:00 08/29/24 06:00 08/29/24 06:00 08/29/24 03:58 08/29/24 05:00
Vital Signs
Temp Pulse Resp BP Pulse Ox
98.9 F 79 13 115/68 92
08/29/24 04:00 08/29/24 06:00 08/29/24 06:00 08/29/24 03:58 08/29/24 05:00
Intake & Output
08/27/24 08/28/24 08/29/24 08/30/24
06:59 06:59 06:59 06:59
Intake Total 628.1 / 638.1 1176.8 / 1176.8 2283.4 / 2283.4
Output Total 3275 / 3590 4010 / 4010 2490 / 2490
Balance -2646.9 / -2951.9 -2833.2 / -2833.2 -206.6 / -206.6
Physical Exam
Physical Exam
General: Well developed, well nourished in NAD.
Neck: Supple, no JVD, HJR, carotids +2 B/L, no bruits bilaterally.
Heart: Non displaced PMI, RRR, no murmurs, No S3, S4, no rubs.
Lungs: Scattered rhonchi
Sternal dressings noted
Extremities: No clubbing, cyanosis or edema bilaterally.
Neuro: Grossly nonfocal, awake, alert and oriented x3.
--- NOTE | 2024-08-29 10:30 | PTCARENOTE ---
CTx2 removed PT aaox4 92% on ra; resting in bed
--- NOTE | 2024-08-29 12:00 | PTCARENOTE ---
no change from previous assessment
--- NOTE | 2024-08-29 17:40 | W.PN.PUL3 ---
Addendum entered and electronically signed by Romulo Santiago MD 08/30/24 15:51:
Patient downgraded to Telemetry floor
Metrology Engineer service will sign off, please call as needed
Patient will need outpatient follow up with Pulmonary clinic (Dr. Burnette). Information left in the discharge section.
Original Note:
Today's Communication / Plan
-
- Stable respiratory status
- Pulmonary team will continue to follow
Assessment
-
74-year-old woman with past medical history noted. Transferred from [facility] for evaluation of CABG. On CAT scan she has a right upper lobe groundglass opacity status post robotic bronchoscopy tissue sampling at -07/31 that was
benign-atypical cells found.
We were consulted on 08/19/2024 for preop pulmonary assessment.
Pt is now s/p CABG
-
S/p CAB x 3 on 08/24/24
Post GLADYS EF 40%
Off pressors, off supplemental O2
Brief torsade 08/27/22 at am, s/p shock x 1
s/p ICD/PPM/3
Right upper lobe pulmonary nodule-groundglass
CT chest 08/18/2024: No acute disease of the chest. Moderate atherosclerosis. Right upper lobe groundglass/minimal solid about 4 mm component with cystic component opacity-1.6X 1.[address] chest 07/31/2024: Reported 2.3X 1.1 cm groundglass nodule on the right upper lobe with 4 mm solid component.
Mild paraseptal emphysema
Multivessel coronary artery disease-ischemic cardiomyopathy-unstable angina
Echocardiogram 08/18/2024: Ejection fraction 30 to 35%, mid anteroseptal, mid septal and mid inferior and apical akinesis, stage I diastolic dysfunction.
-
Conditions present prior admission:
Ischemic cardiomyopathy ejection fraction 30 to 35% by echocardiogram
Multivessel coronary artery disease by cath 06/2024
Pulmonary groundglass nodule status post bronchoscopy and biopsy 07/2024
Benign. Minimal atypical cells-follows up with Dr. Holt
Hypertension
Hyperlipidemia
Peripheral arterial disease status post right lower extremity stent
Former smoker-quit in 2005
Assessment and plan:
At this time, patient appears comfortable without complaints, off all pressors, on room air
ICD placed 08/27, episode of torsade requiring 1 shock prior with in and out of atrial fibrillation/flutter, junctional rhythm.
Saturating well, no cough or dyspnea
Patient admits to stopping smoking
Right upper lobe lung nodule differential diagnosis includes adenocarcinoma in situ versus scarring.
As noted status post robotic bronchoscopy 07/31/2024 at [facility]-minimal atypical cells.
PET/CT reportedly showed no significant FDG avidity -Plan in the outpatient setting was to evaluate CT surgery in the future versus repeating biopsy. Patient is aware of this plan
Patient requesting follow-up locally, does not want to follow-up with Dr. Yanet Gardner who is now a intervention manager doctor and patient cannot afford to see her.
[facility] info left in chart
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
Reviewed with critical care nursing
Data
Pulmonary function testing 08/20/2024:
FEV1/FVC ratio 70%, FEV1 1.98 L - 86%, FVC 2.82 L having 95%.
T.51 L - 85%
RV 1.88 L - 88%.
RV/TLC ratio 42%
Diffusion capacity 12.08-61%.
DLCO/VA 98%.
-
No airflow obstruction. Preserved lung volumes. Moderately decreased diffusion capacity, corrects to normal when adjusted for alveolar volume.
Subjective Data
-
Date of Service:
Date of Service: August 29, 2024
Chief Complaint: Pulmonary Follow Up (Lung nodule/emphysema)
Subjective:
Comfortably sitting in bed, in no acute distress. Patient is off all pressors, on room air.
Review of Systems
Genitourinary: Other (No New symptoms. )
Objective Data
Data Reviewed
Vital Signs / I&O / Oxygen:
Vital Signs
Temp Pulse Resp BP Pulse Ox
98.9 F 79 13 115/68 92
08/29/24 04:00 08/29/24 06:00 08/29/24 06:00 08/29/24 03:58 08/29/24 05:00
Intake and Output
08/28/24 08/29/24 08/30/24
06:59 06:59 06:59
Intake Total 1176.8 / 1176.8 2283.4 / 2283.4
Output Total 4010 / 4010 2490 / 2490 1000 / 1000
Balance -2833.2 / -2833.2 -206.6 / -206.6 -1000 / -1000
SaO2 [CPAP/PSV] 100
SaO2 [SIMV] 100
SaO2 92
Nasal Cannula flow liters per 5
minute
Physical Exam
General: Comfortable
HEENT: Normocephalic
Cardiovascular: S1-S2
Respiratory: Non-Labored Respirations
GI: Soft and Non Distended
Neurology: Awake, Alert, Oriented and No Motor Deficits
Skin: Warm
Labs/Micro/Reports
Lab Data
08/29/24 04:07
08/29/24 04:07
--- NOTE | 2024-08-29 18:33 | PTCARENOTE ---
no change from previous assessment
[2024-08-29] MEDS: NSS 500 IV (18:36)
--- NOTE | 2024-08-29 19:45 | PTCARENOTE ---
Pt received awake alert and oriented. Assessment as charted. Room air sat 91%.
--- NOTE | 2024-08-29 22:35 | PTCARENOTE ---
Room air sat while laying in bed 87%. Placed on O2 2l and sat up to 94%.
[2024-08-30 04:33] VITALS: BP 115/60
[2024-08-30 04:46] VITALS: BMI 18.3
[2024-08-30 04:58] LABS: Hematocrit 29.5 % (37.0-47.0); Mean Corp Hgb Conc. 33.9 g/dL (33.0-37.0); Mean Corpuscular Hgb 31.2 pg (27.0-31.0); Mean Corpuscular Volume 91.9 fL (81.0-99.0); Mean Platelet Volume 11.3 fL (7.4-10.4); Platelet Count 181 10^3/uL (130-400); Red Blood Cell Count 3.21 10^6/uL (4.20-5.40); Red Cell Dist. Width 13.4 % (11.5-14.5); White Blood Cell Count 14.2 10^3/uL (4.8-10.8)
[2024-08-30 05:23] LABS: ALT (SGPT) 170 U/L (0-35); AST (SGOT) 74 U/L (14-36); Albumin 3.4 g/dl (3.5-5.0); Alkaline Phosphatase 103 U/L (38-126); Blood Urea Nitrogen 15 mg/dl (7-17); Calcium 8.8 mg/dl (8.4-10.2); Carbon Dioxide 33 mmol/L (22-30); Chloride 86 mmol/L (98-107); Estimated Creatinine Clearance 69 ml/min; Glucose 119 mg/dl (70-99); Magnesium 2.2 mg/dl (1.6-2.3); Potassium 3.5 mmol/L (3.5-5.1); Sodium 126 mmol/L (135-145); Total Bilirubin 1.6 mg/dl (0.2-1.3); Total Protein 5.3 g/dl (6.3-8.2); eGFR > 60.00
[2024-08-30 08:30] VITALS: BP 111/54
[2024-08-30] MEDS: MAGNESIUM OXIDE 500 MG PO ×2 (08:31→21:28)
[2024-08-30] MEDS: SENOKOT-S 1 TABLET PO (08:31)
[2024-08-30] MEDS: TOPROL XL 50 MG PO ×2 (08:31→21:29)
[2024-08-30] MEDS: FEOSOL 325 MG PO (08:32)
[2024-08-30] MEDS: KCL 40 MEQ PO (08:32)
[2024-08-30] MEDS: PACERONE 200 MG PO ×3 (08:33→21:39)
[2024-08-30] MEDS: PROTONIX 40 MG PO (08:33)
[2024-08-30] MEDS: NEURONTIN 100 MG PO ×3 (08:33→21:38)
[2024-08-30] MEDS: VITAMIN C 500 MG PO (08:34)
[2024-08-30] MEDS: LOW STRENGTH ASPIRIN 81 MG PO (08:34)
--- NOTE | 2024-08-30 09:30 | PTCARENOTE ---
Received patient for 7a-7p shift. Pt AAOx3, without complaints. 100% A paced on collection development librarian, VSS. Medications administered as ordered. Pt ambulatory in room with assistance and rolling walker. Patient denies pain at this time. RIJ cordis
infusing without complications. 2 View CXR completed. Instructed patient to call for assistance prior to ambulation, call graham in reach. Will continue to monitor.
[2024-08-30 11:32] VITALS: BP 111/51
[2024-08-30] MEDS: LASIX 20 MG IV (11:32)
[2024-08-30] MEDS: LIDOCAINE 4% PATCH TOPICAL (11:33)
--- NOTE | 2024-08-30 12:00 | PTCARENOTE ---
Patient AAOx3, 100% A paced on cardiac specialist, VSS. Patient denies pain at this time. + BM, voiding without issues. RIJ cordis infusing without complications. Pt ambulatory in room with 1 person assist and rolling walker. Medications administered
as ordered. Patient demonstrates use of call graham system. Will continue to monitor.
[2024-08-30 16:27] VITALS: BP 106/65
[2024-08-30] MEDS: NSS 500 IV (16:37)
--- NOTE | 2024-08-30 17:24 | PTCARENOTE ---
VSS, A paced on pvc monitor. Patient denies pain at this time. Medications administered as ordered. Pt OOB, tolerating po intake. Small scabbed area on perineum with small bleeding, calcium alginate and ice applied, bleeding stopped. Will
continue to monitor.
--- NOTE | 2024-08-30 18:24 | W.PN.CT ---
Today's Communication / Plan
-
Doing well
Gentle diuresis with IV lasix today
Cont to monitor Na (126 this AM). Encourage salt intake
Eliquis for PAF, has remained NSR
Ambulate
Home soon
Assessment / Plan
-
Assessment:
-S/P Median sternotomy/CABG x 3 (EARL to LAD, GSV to RI, GSV to RPLB)/Endoscopic harvest/prep of RLE GSV/ELAA (40mm AtriClip), by Dr. Gould, 08/24/24, pod#6
-S/P Medtronic ICD placement by Dr. Ceja on 08/27/24
-Severe 3v CAD
-NSTEMI (peak trop 0.243)
-ICM
-LVEF 30-35%, 40-45 postop per intraop GLADYS
-Mild MR
-Plavix washout
-RUL Lung Nodule S/P bronchoscopy and biopsy, 07/31/2024 (Benign)
-Former tobacco use (quit 2005)
-HTN
-HLD
-Severe PAD S/p RLE FINE CRAFT ARTIST and stent x 2 (on Plavix)
-Anemia
-S/P hysterectomy
-S/p cholecystectomy
-Acute postop blood loss Anemia on chronic anemia(transfused 1u PRBC intraop)
-Acute postop atelectasis
-Acute postop hypovolemia with subsequent hypervolemia
-Acute postop bradycardia (30's)/junctional rhythm
-Acute postop hypotension, SBP 60's
-Acute hypoxic respiratory failure
-Acute on chronic systolic CHF
-Acute postop NAVEEN- resolved
-Acute postop transaminitis /elevated INR- improving
-Acute postop lactic acidosis, likely from Epinephrine
-Acute postop a-fib with tachy/dolores syndrome and conversion pauses upto 3-4 sec
-Acute postop Cardiac arrest/Torsades on 08/27/24 - required 1 shock
-Acute postop hyponatremia
-Acute postop metabolic alkalosis, likely d/t diuresis
Subjective
Procedure
-S/P Median sternotomy/CABG x 3 (EARL to LAD, GSV to RI, GSV to RPLB)/Endoscopic harvest/prep of RLE GSV/ELAA (40mm AtriClip), by Dr. Gould, 08/24/24
-
Date of Service: August 30, 2024
Objective Data
-
Lab Results
08/30/24 04:33
08/30/24 04:33
PT 19.6 Sec (11.4-14.6) H 08/28/24 03:21
INR 1.60 08/28/24 03:21
APTT 24.5 Sec (23.4-35.0) 08/24/24 19:36
Vital Signs
Vital Signs
Temp Pulse Resp BP Pulse Ox
98.1 F 72 18 106/65 92
08/30/24 16:27 08/30/24 16:36 08/30/24 16:27 08/30/24 16:36 08/30/24 16:27
CT Intake/Output/Weight
08/29/24 08/30/24 08/30/24
18:59 06:59 18:59
Intake Total 280 / 280
Output Total 1030 / 1030
Balance -1030 / -1030 280 / 280
SaO2: 92
Physical Exam
-
General: Awake and Oriented
Cardiovascular: Regular rate & rhythm
Respiratory: Clear and Equal
Sternum: Stable
Incision: Clean, Dry and Intact
Data Reviewed
-
Lab Results: Results Reviewed
Medications: Active Meds Reviewed
Chest X-Ray: Report Reviewed
ECG: Report Reviewed
[2024-08-30 21:06] VITALS: BP 109/60
--- NOTE | 2024-08-30 21:24 | PTCARENOTE ---
Report from Caprice RN. Walking rounds done. Pt assessed. VS done. Awake, alert, oriented x 4. Speech clear. Generalized weakness x 4. Uses rolling walker to ambulate. Pt on 2L/NC in bed. On room air in bed, sats 90%. On 2L/NC, sats 95-98%. BBS
present. Decreased bibasilarly. CDB and IS encouraged. IS peak 1000 mls. Audible ehart tones. AV paced, A paced at times with PPM. Normotensive. For pulse and wound assessments, see flowsheet. Belly soft, nontender. Normoactive bs x 4. Pt had BM
today. Urine clear, yellow. Scheduled meds given. See MAR. Ongoing plan of care.
[2024-08-30] MEDS: ELIQUIS 5 MG PO (21:28)
[2024-08-30] MEDS: SENOKOT-S PO (21:29)
[2024-08-31] VITALS (26 sets, daily range): BP systolic 70–131; BP diastolic 46–117; PULSE 70; O2SAT 95–96; BMI 18.3
--- NOTE | 2024-08-31 00:51 | W.PN.CT ---
Today's Communication / Plan
-
-pod #7
-back in afib this morning with controlled rate, s/p IV mag/metoprolol, amio bolus and gtt. Remains on Eliquis.
-s/p ICD 08/27, predominantly paced prior to afib
-Follow serum Na (127->126->128 today), fluid restrict, informed to increase dietary salt
-Eliquis started, off Plavix
-encourage IS, ambulate
-continue asa, amio, metoprolol, Eliquis
Assessment / Plan
-
-S/P Median sternotomy/CABG x 3 (EARL to LAD, GSV to RI, GSV to RPLB)/Endoscopic harvest/prep of RLE GSV/ELAA (40mm AtriClip), by Dr. Gould, 08/24/24, pod #7
-S/P Medtronic ICD placement by Dr. Ceja on 08/27/24
-Severe 3v CAD
-NSTEMI (peak trop 0.243)
-ICM
-LVEF 30-35%, 40-45 postop per intraop GLADYS
-Mild MR
-Plavix washout
-RUL Lung Nodule S/P bronchoscopy and biopsy, 07/31/2024 (Benign)
-Former tobacco use (quit 2005)
-HTN
-HLD
-Severe PAD S/p RLE DIRECTOR OF SALES and stent x 2 (on Plavix)
-Anemia
-S/P hysterectomy
-S/p cholecystectomy
-Acute postop blood loss Anemia on chronic anemia(transfused 1u PRBC intraop)
-Acute postop atelectasis
-Acute postop hypovolemia with subsequent hypervolemia
-Acute postop bradycardia (30's)/junctional rhythm
-Acute postop hypotension, SBP 60's
-Acute hypoxic respiratory failure
-Acute on chronic systolic CHF
-Acute postop NAVEEN- resolved
-Acute postop transaminitis /elevated INR- improving
-Acute postop lactic acidosis, likely from Epinephrine
-Acute postop a-fib with tachy/dolores syndrome and conversion pauses upto 3-4 sec
-Acute postop Cardiac arrest/Torsades on 08/27/24 - required 1 shock
-Acute postop hyponatremia
-Acute postop metabolic alkalosis, likely d/t diuresis
Subjective
-
Date of Service: August 31, 2024
Objective Data
-
PT 19.6 Sec (11.4-14.6) H 08/28/24 03:21
INR 1.60 08/28/24 03:21
APTT 24.5 Sec (23.4-35.0) 08/24/24 19:36
Vital Signs
Vital Signs
Temp Pulse Resp BP Pulse Ox
97.5 F 71 15 109/60 90
08/30/24 21:06 08/30/24 21:39 08/30/24 21:06 08/30/24 21:39 08/30/24 21:06
CT Intake/Output/Weight
08/30/24 08/30/24 08/31/24
06:59 18:59 06:59
Intake Total 280 / 290 10 / 290
Balance 280 / 290 10 / 290
SaO2: 90
Physical Exam
-
General: Awake and Oriented
Cardiovascular: Regular rate & rhythm, No Murmurs and No Rub
Respiratory: Clear and Equal
Sternum: Stable
Incision: Clean and Dry
Extremities: No Edema and No Erythema
Data Reviewed
-
Lab Results: Results Reviewed
Medications: Active Meds Reviewed
Chest X-Ray: Report Reviewed
ECG: Report Reviewed
[2024-08-31] MEDS: CORDARONE 103 MG IV (02:34)
[2024-08-31 02:52] LABS: Hematocrit 28.7 % (37.0-47.0); Mean Corp Hgb Conc. 34.8 g/dL (33.0-37.0); Mean Corpuscular Hgb 32.2 pg (27.0-31.0); Mean Corpuscular Volume 92.3 fL (81.0-99.0); Platelet Count 212 10^3/uL (130-400); Red Blood Cell Count 3.11 10^6/uL (4.20-5.40); Red Cell Dist. Width 13.5 % (11.5-14.5); White Blood Cell Count 11.7 10^3/uL (4.8-10.8)
[2024-08-31] MEDS: MAGNESIUM SULFATE 50 IV (02:58)
[2024-08-31] MEDS: CORDARONE 518 MG IV (02:59)
--- NOTE | 2024-08-31 03:20 | PTCARENOTE ---
Pt went into AF at 0129. Rate 90-100's. INSURANCE ACCOUNT EXECUTIVE notified. Pt normotensive. Amio bolus given per order. Amio gtt started per order and protocol. Magnesium Sulfate 2 GM IV started over 2 hours. Pt remains Normotensive. See VS. Helped to BSC to void 700 mls
clear yellow urine. HR briefly up to 110's. Pt weighed on standing scale and helped back to bed. AF remains. Labs drawn and sent. Pt remains on 2L/NC. Sats 95%.
[2024-08-31 03:28] LABS: ALT (SGPT) 127 U/L (0-35); AST (SGOT) 48 U/L (14-36); Alkaline Phosphatase 88 U/L (38-126); Blood Urea Nitrogen 14 mg/dl (7-17); Calcium 8.9 mg/dl (8.4-10.2); Carbon Dioxide 35 mmol/L (22-30); Chloride 89 mmol/L (98-107); Estimated Creatinine Clearance 69 ml/min; Glucose 119 mg/dl (70-99); Magnesium 2.1 mg/dl (1.6-2.3); Potassium 3.6 mmol/L (3.5-5.1); Sodium 128 mmol/L (135-145); Total Bilirubin 1.4 mg/dl (0.2-1.3); eGFR > 60.00
[2024-08-31] MEDS: KCL ELIXIR 40 MEQ PO (05:09)
--- NOTE | 2024-08-31 05:57 | PTCARENOTE ---
Pt AV paced at 0539, rate 70 bpm. Amio gtt remains at 1 mg/min. KCL 40 meQ elixir given per order.
--- NOTE | 2024-08-31 07:15 | PTCARENOTE ---
Pt had moderate BM on BSC, voided. Helped to chair. CHG bath given. Report to FESTUS Courtney this am.
[2024-08-31] MEDS: MAGNESIUM OXIDE 500 MG PO ×2 (08:11→21:59)
[2024-08-31] MEDS: PACERONE 200 MG PO ×3 (08:11→22:02)
[2024-08-31] MEDS: ELIQUIS 5 MG PO ×2 (08:12→21:59)
[2024-08-31] MEDS: LOW STRENGTH ASPIRIN 81 MG PO (08:12)
[2024-08-31] MEDS: SENOKOT-S 1 TABLET PO (08:12)
[2024-08-31] MEDS: TOPROL XL 50 MG PO ×2 (08:12→22:00)
[2024-08-31] MEDS: NEURONTIN 100 MG PO ×3 (08:12→22:01)
[2024-08-31] MEDS: FEOSOL 325 MG PO (08:12)
[2024-08-31] MEDS: PROTONIX 40 MG PO (08:13)
[2024-08-31] MEDS: LIDOCAINE 4% PATCH TOPICAL (08:13)
[2024-08-31] MEDS: VITAMIN C 500 MG PO (08:13)
--- NOTE | 2024-08-31 09:00 | PTCARENOTE ---
recieved PT from nightshift RN, PT aaox4 w/o complaints of pain; paced on monitor VSS; RA clear throughout & diminished at the bases; GI and WNL, all surgical sights CDI; AYDEE cdi wnl; see worklist for detailed assessment
[2024-08-31] MEDS: ROXICODONE 5 MG PO (09:57)
[2024-08-31] MEDS: LASIX 20 MG PO (10:30)
--- NOTE | 2024-08-31 11:52 | CM ---
Reviewed chart. Telephone call to [facility] to check on co-pay for Eliquis 5 mg po bid. Her first co-pay would be $336.00. After she mets her deductible she would pay 25 % of the cost of the medications. So her next month co-pay would be approx
$125.00 a month. Reviewed with Mr and Mrs. Garcia co-pays. They are okay with the co-pay. Placed the one month free coupon in her red discharge folder. Also reviewed SNF/Rehab. with her if she wanted to explore. She is declining SNF/Rehab. at this
time. She states she felt tired when ambulating today. Prior to admission she resides with her spouse in a two story home with one step to enter. She has a full flight of steps to get to bedroom. She has a bathroom on each floor. Prior to
admission she was independent with ambulation and adls She does not have any DME in the home. Medical work-up in progress. The discharge plan is to return home with her spouse and a home visit by the Transitional Care Nurse when medically stable.
--- NOTE | 2024-08-31 12:00 | PTCARENOTE ---
no change from previous assessment
--- NOTE | 2024-08-31 13:45 | W.PN.CARDCBS ---
Today's Communication / Plan
-
Supportive postop care
Impression / Plan
-
PCP: Dr. Fran Del Cid
Radiographic Technologist: Dr. Liang
Impression:
Presented to ER from outpatient [place] cardiology office with abnormal cardiac cath and back pain 08/17/2024
NSTEMI, peak Troponin 0.243
CAD with MV CAD by cardiac cath at [facility] 06/2024
s/p CABG x3 (EARL to LAD, GSV to RI, GSV to PLB), ELAA w/ 40 mm AtriClip 08/24/2024Ischemic CM EF 30 to 35% by echo 08/18/2024, EF 42% by intraop GLADYS
Post op junctional rhythm, appears to be improving
Post op PAF with RVR
Pulmonary nodule s/p bronchoscopy and biopsy was reportedly negative pathology for malignancy 06/2024
Patient reports that pathology report recommended repeat biopsy for monitoringHTN
Hyperlipidemia
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
Former smoker
Echo 08/18/2024: EF 30 to 35%, mid anteroseptal, mid septal, mid inferior and apical akinesis, stage I diastolic
Intraop GLADYS 08/24/24: EF 42%, mid to apical anterior/anteroseptal/septal hypokinesis, mid to apical inferior hypokinesis, mild cLVH, stage 1 diastolic dysfunction, mild MR, mod sessile atheroma in descending aorta, mild sessile atheroma in distal arch
ECHO 08/26/24: EF 45 to 50%, akinesis of mid to apical septum, apex, apical anterior sun, no significant effusion noted
Plan:
Presented to [facility] from OP [facility] cardiology office w/ abnormal cardiac cath and back pain.
-[facility] 06/2024 noted MV CAD and underwent CABG x3 (EARL to LAD, GSV to RI, GSV to PLB), ELAA w/ 40 mm AtriClip 08/24/2024.
-08/27 had VF arrest - afib degenerated to VF s/p shock x1. s/p Medtronic ICD for secondary prevention 08/27/24.
-Postop paroxysmal atrial fibrillation back in atrial fibrillation this morning with controlled rates
-Currently AV paced
-Continue metoprolol and amiodarone. Continue Eliquis anticoagulation
-Continue postop supportive care with rehab efforts and I-S
-Will follow with you
HPI: Patient was seen as a new patient at [facility] office on 08/17/2024 due to history of abnormal cardiac cath and was referred to ER and is now admitted with consultation to cardiology. Patient used to work at [facility]. She had a shoulder injury
prompting an x-ray that showed a pulmonary nodule. She then followed up with a dining room coordinator out of [facility] and was recommended bronchoscopy with biopsy that was performed 06/2024. Patient reports that the pathology was negative for malignancy, but
that in either the bronchoscopy report or the pathology report it was recommended that she have a repeat bronchoscopy and biopsy in about 6 months. Patient reports that as part of the workup for bronchoscopy she had an ECG that was abnormal and had
cardiac cath performed by Dr. Yves Lund at [facility]. Patient recalls being told that her cardiac cath was abnormal and that the plan was for her to complete her bronchoscopy and biopsy and following that she would have an intervention so as to not
interrupt DAPT. Patient says that it has been 1 month since her bronchoscopy and so she followed up with her PCP who arranged for her to see a nuclear physician at another group which was performed yesterday. Cardiac cath films were reviewed by
cardiology at the [facility] office and felt to be abnormal. Patient has possible angina symptoms of upper back tightness and has been having the symptoms at rest. Patient was then referred to ER. Serial troponin in the ER was elevated, peak thus far
0.155. Patient denies any chest or back pain at this time.
Progress Note - Radiographic Technologist
Subjective
Date of Service: August 31, 2024
Patient seen and examined with at bedside. Overall feeling better and anxious for discharge home, potentially tomorrow.
Objective
Labs:
08/31/24 02:30
08/31/24 02:30
Labs
Hgb 10.0 g/dL (12.0-16.0) L 08/31/24 02:30
Hct 28.7 % (37.0-47.0) L 08/31/24 02:30
Plt Count 212 10^3/uL (130-400) 08/31/24 02:30
PT 19.6 Sec (11.4-14.6) H 08/28/24 03:21
INR 1.60 08/28/24 03:21
APTT 24.5 Sec (23.4-35.0) 08/24/24 19:36
Sodium 128 mmol/L (135-145) L 08/31/24 02:30
Potassium 3.6 mmol/L (3.5-5.1) 08/31/24 02:30
BUN 14 mg/dl (7-17) 08/31/24 02:30
Creatinine 0.6 mg/dL (0.6-1.0) 08/31/24 02:30
Glucose 119 mg/dl (70-99) H 08/31/24 02:30
Vital Signs and I&O:
Vital Signs
Temp Pulse Resp BP Pulse Ox
98.2 F 71 16 110/56 85
08/31/24 08:00 08/31/24 11:00 08/31/24 08:00 08/31/24 11:00 08/31/24 09:54
Vital Signs
Temp Pulse Resp BP Pulse Ox
98.2 F 71 16 110/56 85
08/31/24 08:00 08/31/24 11:00 08/31/24 08:00 08/31/24 11:00 08/31/24 09:54
Intake & Output
08/29/24 08/30/24 08/31/24 09/01/24
06:59 06:59 06:59 06:59
Intake Total 2283.4 / 2283.4 459.9 / 459.9
Output Total 2490 / 2490 1030 / 1030 700 / 700 300 / 300
Balance -206.6 / -206.6 -1030 / -1030 -240.1 / -240.1 -300 / -300
Physical Exam
Physical Exam
General: Well developed, well nourished in NAD.
Heart: Regular. Positive S1-S2. No murmurs or rubs. Sternal dressing intact. ICD dressing intact.
Lungs: Bronchovesicular breath sounds, clear
Sternal dressings noted
Extremities: No edema
[2024-08-31] MEDS: NSS 500 IV (17:52)
--- NOTE | 2024-08-31 17:55 | PTCARENOTE ---
no change from previous assessment
--- NOTE | 2024-08-31 21:55 | PTCARENOTE ---
Report received from FESTUS Courtney. Walking rounds done. Pt sitting in chair. Awake, alert, oriented x 4. Speech clear , Equal strength x 4. Using rolling walker for generalized weakness. Pt on room air. Sat 94-95%. BBS present. Decreased B bases. IS peak
1000 mls. Pt A paced at 70-74 bpm. Pt with permanent PM/AICD. Amio gtt at 0.5 mg/min through RIJ cordis. Normotensive. Audible heart tones. For pulse and wound assessments, see flowsheets. Pt had BM on toilet. Soft stool , dk brown. Pericare done.
Pt also voided clear, yellow urine. Pt helped back to bed. CHG bath done. Scheduled meds given. Ongoing plan of care, Discussed plan of care with PA. Keeping cordis overnight.
[2024-08-31] MEDS: SENOKOT-S PO (22:00)
[2024-08-31] MEDS: KCL 20 MEQ PO (22:01)
[2024-09-01] VITALS (7 sets, daily range): BP systolic 110–121; BP diastolic 47–74; PULSE 71; O2SAT 94–100; BMI 18.4
--- NOTE | 2024-09-01 01:13 | W.PN.CT ---
Today's Communication / Plan
-
Plan:
-No major issues overnight. Hemodynamically and neurologically intact
-Off drips
-Postop a-fib, was on amiodarone gtt which was d/c'd @ 0300. Cont. Eliquis
-Currently A-paced @ 70 bpm
-Monitor hyponatremia, 126->128->127
-Transaminitis is improving is resolving: AST 564->159->74->48->34 ; ALT 568->252->170->127->94. Tylenol and Lipitor currently on hold, still on Amiodarone
-Cont. current meds (ASA, Eliquis, Amiodarone, Toprol XL, Lipitor)
-Encourage use of IS
-OOB into chair/Ambulate
-Still has cordis (will d/c if going home, will keep another another day if home tomorrow)
-Home later today vs tomorrow
Assessment / Plan
-
-S/P Median sternotomy/CABG x 3 (EARL to LAD, GSV to RI, GSV to RPLB)/Endoscopic harvest/prep of RLE GSV/ELAA (40mm AtriClip), by Dr. Gould, 08/24/24, pod #8
-S/P Medtronic ICD placement by Dr. Ceja on 08/27/24
-Severe 3v CAD
-NSTEMI (peak trop 0.243)
-ICM
-LVEF 30-35%, 40-45 postop per intraop GLADYS
-Mild MR
-Plavix washout
-RUL Lung Nodule S/P bronchoscopy and biopsy, 07/31/2024 (Benign)
-Former tobacco use (quit 2005)
-HTN
-HLD
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
-Anemia
-S/P hysterectomy
-S/p cholecystectomy
-Acute postop blood loss Anemia on chronic anemia(transfused 1u PRBC intraop)
-Acute postop atelectasis
-Acute postop hypovolemia with subsequent hypervolemia
-Acute postop bradycardia (30's)/junctional rhythm
-Acute postop hypotension, SBP 60's
-Acute hypoxic respiratory failure
-Acute on chronic systolic CHF
-Acute postop NAVEEN- resolved
-Acute postop transaminitis /elevated INR- improving
-Acute postop lactic acidosis, likely from Epinephrine
-Acute postop a-fib with tachy/dolores syndrome and conversion pauses upto 3-4 sec
-Acute postop Cardiac arrest/Torsades on 08/27/24 - required 1 shock
-Acute postop hyponatremia
-Acute postop metabolic alkalosis, likely d/t diuresis
Discussed patient care with: Cardiology, Nursing, Respiratory Therapy, Pharmacy and Care Team
Subjective
-
Date of Service: September 01, 2024
Pt c/o mild incisional pain, otherwise feels well
Objective Data
-
Lab Results
08/31/24 02:30
PT 19.6 Sec (11.4-14.6) H 08/28/24 03:21
INR 1.60 08/28/24 03:21
APTT 24.5 Sec (23.4-35.0) 08/24/24 19:36
Vital Signs
Vital Signs
Temp Pulse Resp BP Pulse Ox
97.7 F 70 15 114/50 92
08/31/24 21:54 08/31/24 22:02 08/31/24 21:54 08/31/24 22:02 08/31/24 22:00
CT Intake/Output/Weight
08/31/24 08/31/24 09/01/24
06:59 18:59 06:59
Intake Total 179.9 / 459.9 66.8 / 66.8
Output Total 700 / 700 900 / 900
Balance -520.1 / -240.1 -900 / -833.2 66.8 / -833.2
SaO2: 92 (RA)
Physical Exam
-
General: Awake, Oriented and AOx3
Cardiovascular: Regular rate & rhythm (a paced @ 70 bpm), No Murmurs, No Rub and No Gallop
Respiratory: Decreased Breath Sounds (at bases, otherwise clear)
Sternum: Stable
Incision: Clean, Dry, Intact and Dressing Intact
Extremities: Other (+trace edema)
Data Reviewed
-
Lab Results: Results Reviewed
Medications: Active Meds Reviewed
Chest X-Ray: Report Reviewed and Image Reviewed
ECG: Report Reviewed and Image Reviewed
--- NOTE | 2024-09-01 03:20 | PTCARENOTE ---
Amiodarone d/c'ed per provider order. Pt A paced, 70's.
[2024-09-01 05:32] LABS: ALT (SGPT) 94 U/L (0-35); AST (SGOT) 34 U/L (14-36); Albumin 3.2 g/dl (3.5-5.0); Alkaline Phosphatase 84 U/L (38-126); Blood Urea Nitrogen 12 mg/dl (7-17); Calcium 8.8 mg/dl (8.4-10.2); Carbon Dioxide 31 mmol/L (22-30); Chloride 91 mmol/L (98-107); Estimated Creatinine Clearance 69 ml/min; Glucose 123 mg/dl (70-99); Magnesium 2.2 mg/dl (1.6-2.3); Potassium 3.9 mmol/L (3.5-5.1); Sodium 127 mmol/L (135-145); Total Bilirubin 1.2 mg/dl (0.2-1.3); Total Protein 5.2 g/dl (6.3-8.2); eGFR > 60.00
--- NOTE | 2024-09-01 06:00 | PTCARENOTE ---
Pt helped to BR to void clear, yellow urine. Pt weighed on standing scale. Pt helped to chair. Dr. Gould in to see pt.
[2024-09-01] MEDS: KCL 20 MEQ PO (06:38)
[2024-09-01] MEDS: LOW STRENGTH ASPIRIN 81 MG PO (08:05)
[2024-09-01] MEDS: NEURONTIN 100 MG PO (08:05)
[2024-09-01] MEDS: TOPROL XL 50 MG PO (08:06)
[2024-09-01] MEDS: LASIX 20 MG PO (08:06)
[2024-09-01] MEDS: PACERONE 200 MG PO (08:06)
[2024-09-01] MEDS: ELIQUIS 5 MG PO (08:06)
[2024-09-01] MEDS: FEOSOL 325 MG PO (08:06)
[2024-09-01] MEDS: MAGNESIUM OXIDE 500 MG PO (08:06)
[2024-09-01] MEDS: VITAMIN C 500 MG PO (08:06)
[2024-09-01] MEDS: PROTONIX 40 MG PO (08:06)
[2024-09-01] MEDS: LIDOCAINE 4% PATCH 1 PATCH TOPICAL (08:06)
[2024-09-01] MEDS: SENOKOT-S 1 TABLET PO (08:06)
--- NOTE | 2024-09-01 09:34 | PTCARENOTE ---
Assumed care of patient from night filler RN. RBOERTO x 3 , sitting up in the chair. Denies complaint. A paced on monitor. Room air 97%. Abdomen soft and non tender, appetite good, passing flatus. Voiding w/o issue. Surgical dressings c,d,i.
Pulses palpable. Plan for day discussed.
--- NOTE | 2024-09-01 09:38 | W.DCSUMMARY ---
Discharge Summary
Discharge Data
Date of Admission: 08/17/24
Date of Discharge: 09/01/24
-
Pending Results: No
Hospital Course
Primary care physician: Fran Del Cid
Outpatient systems coordinator: Aaron Liang
Inpatient consultants: [facility] cardiology, pulmonary complaint evaluation supervisor
Procedures:
1. CABG, left atrial appendage clip (08/24)
2. Medtronic dual-chamber ICD (08/27)
Primary Diagnosis:
1. NSTEMI/Multivessel coronary disease
Secondary Diagnoses:
1. PAD s/p prior RLE stent
2. HTN
3. HLD
4. ICM w/ [id number]%
5. Prior anterior and inferior MIs
6. RUL nodule/mass (s/p bronch/bx - neg for malignancy)
7. Acute postop hypercarbic respiratory acidosis
8. Acute postoperative paroxysmal atrial fibrillation with tachy/dolores syndrome and conversion pauses
9. Acute postoperative junctional rhythm
10. Acute postoperative transaminitis
11. Acute post op hyponatremia
12. Acute postop blood loss anemia
13. Acute postop NAVEEN- resolved
14. Acute postop Cardiac arrest/Torsades on 08/27/24 - required 1 shock
15. Acute postop contraction alkalosis
HPI: 74-year-old female with known PAD and history of RLE stent, had abnormal EKG as part of workup for bronchoscopy for an incidental finding of a pulmonary nodule. Bronchoscopy was negative for malignancy. Patient admitted to upper
back tightness at rest and with activity. Patient underwent left heart cath on 07/20 at [facility] by Dr Lund. The cath films were reviewed by the cardiology group at [facility] office and was felt to be abnormal. Therefore due to these findings
and symptoms, she was sent to [facility] emergency room on 08/17/24.
Hospital course: Last dose of Plavix was 08/16/2024. Max Troponin I was 0.234 c/w NSTEMI and IV Heparin was initiated. TTE performed 08/18 identified ICM/HFrEF (30-35%). Surgery was postponed 08/21 as the P2 Y12 level of 221 on 08/20 was indicative
of continued anticoagulant effect. Patient underwent CABG x 3 with LOWERY to LAD, SVG to ramus, SVG to PLV, and left atrial appendage clip (#40mm) by Dr. Zachary Gould on 08/24/2024. Postprocedure GLADYS reported an EF of 42% with mild�apical inferior
hypokinesis. Patient received 1 PRBC on pump. She had no pacing wires. Patient returned to the CVICU on dobutamine at 4, Levophed, Precedex, and insulin. Patient was noted to be sinus bradycardic/junctional rhythm on arrival to the CVICU.
Epinephrine was added. Patient had a hypercarbic respiratory acidosis which was treated with bicarb. On postoperative day #1, dobutamine dose was increased, epinephrine dose was decreased, and Levophed weaned off. Aspirin and Plavix are
initiated. Patient received 1PRBC for anemia. Patient was diuresed with Lasix followed by Bumex. Postop day #2, epinephrine was weaned off. Patient converted to atrial fibrillation with RVR and amnio bolus was given. Patient converted between
junctional rhythm and atrial fibrillation therefore dobutamine was weaned off. A TTE reported EF of 32% by frank's method. Visually EF% appears to be 45-50%. Postoperative day #3, patient was noted to have transaminitis with an ALT of 1174.
Tylenol and amiodarone were discontinued. Patient had 1 episode of torsades requiring defibrillation x 1. Patient was evaluated by electrophysiology and underwent a Medtronic dual-chamber ICD placement. Patient subsequently went into rapid A-fib
requiring amiodarone bolus x 2, and infusion. Beta-jay was added and ASA/Plavix changed to ASA/Eliquis. Bumex 2 mg was given with a brisk diuresis of 2 L urine output. On postoperative day #6, patient was transitioned to daily oral low-dose
Lasix. Patient had 20 minutes of atrial fibrillation during the night into postoperative day #7 with and was treated with amiodarone and magnesium. She remained in atrially paced rhythm for the remainder of her stay. Patient underwent PT
screening was deemed stable for discharge disposition to home. Patient experienced mild hyponatremia with sodium level of 127 on day of discharge. She was encouraged to restrict fluids. ALT trended downward and was 94 on day of discharge.
Lipitor was reinstituted. Patient was given a prescription for CMP in 1 week to monitor LFTs. Further GDMT will be implemented as outpatient at cardiology discretion.
Home medication changes:
Toprol XL 200 mg daily changed to Toprol 50 mg twice daily
Clopidogrel changed to apixaban
Atorvastatin 20 mg increased to 40 mg daily
Stop:
Imdur
New meds:
as listed below
Discharge Plan
-
Patient Disposition: Home (Routine Discharge)
Discharge Diagnosis/Procedures: CABG x 3, left atrial appendage clip, dual chamber ICD
Condition: Fair
Diet: Low Cholesterol and Low Sodium
Activity: No strenuous activity
Driving Restrictions: Not until seen by your Dr
Bathing Restrictions: OK to Shower
Other Services: Cardiac Rehab
Specialty Instructions: Weigh Daily- Call MD for wt gain/loss 3 lbs overnight/5 lbs in 1 week
Activity Restrictions/Additional Instructions:
ACTIVITY:
-No strenuous activity: no heavy lifting, pushing, pulling anything over 15 pounds for one month
-continue to use stairs as tolerated
DRIVING RESTRICTIONS:
-No driving for one month or until approved by your surgeon
WOUND CARE:
-Shower daily. Use soap & water.
-No lotions, creams or powders on incision area.
DIET:
-continue a low fat/low cholesterol diet.
-IF you are diabetic, continue carb controlled diet.
CARDIAC REHAB:
-Please make appointment to start in 5-6 weeks with your local hospital program. (See Cardiac Rehabilitation Discharge Booklet).
-Please call [facility] to get scheduled. P: [phone]
SPECIALTY INSTRUCTIONS:
-Weigh yourself daily. Call your physician for any weight gain/loss of 3 lbs overnight or 5 lbs in one week.
-REPORT any clicking noise or uneven appearance of your sternum to your surgeon immediately.
-If you smoke, you are instructed to quit. The [place] smoking hotline phone number is [phone]
Stand Alone Forms: DC Inst - Implanted Device
Referrals:
CT Transitional Care Nurse [Outside] - in one to two days
(
The Cardiothoracic Transitional Care Nurse will call you to set up a visit in 1-2 days.)
Olga Burnette MD [Active] - in six weeks
Zachary Gould MD [Active] - 09/08/24 3:00 pm
Fran Del Cid MD [Family Provider] - in four to six weeks (Please make an appointment in four to six weeks.)
Rody Liang MD [Active] - 10/15/24 2:15 pm
Prescriptions:
New
Eliquis 5 mg Tablet
5 mg PO BID Qty: 60 2RF
ferrous sulfate [FeroSul] 325 mg (65 mg iron) Tablet
325 mg PO DAILY Qty: 30 0RF
amiodarone 200 mg tablet
200 mg PO BID Qty: 60 1RF
metoprolol succinate 50 mg Tablet Extended Release 24 Hr
50 mg PO BID Qty: 60 2RF
pantoprazole 40 mg Tablet,Delayed Release (Dr/Ec)
40 mg PO DAILY Qty: 30 2RF
furosemide 20 mg Tablet
20 mg PO DAILY Qty: 30 0RF
gabapentin 100 mg Capsule
100 mg PO TID Qty: 30 0RF
oxycodone 5 mg Tablet
5 mg PO Q4HPRN PRN (Reason: moderate pain) Qty: 10 0RF
atorvastatin 40 mg Tablet
40 mg PO QPM Qty: 30 2RF
Continued
albuterol sulfate [Ventolin HFA] 90 MCG/PUFF HFA aerosol inhaler
2 puff inhalation PRN PRN (Reason: wheeze)
therapeutic multivitamin Tablet
1 tab PO DAILY
prednisolone acetate 1 % Drops,Suspension
1 drp LEFT EYE DAILY
cyclosporine-chondroit sulf A 0.1-0.25 % Drops
1 drp OPHTHALMIC (EYE) DAILY
Rx Instructions:
left eye
aspirin 81 MG tablet,chewable
81 mg PO DAILY Qty: 90 0RF
Discontinued
atorvastatin 20 MG tablet
20 mg PO QPM
clopidogrel 75 MG tablet
75 mg PO HS
metoprolol succinate 200 mg Tablet Extended Release 24 Hr
200 mg PO QPM
Patient Comments:
08/17/24: Visited doctor today, had plans to decrease metoprolol and start taking amlodipine 7.5mg QD, has not yet started taking new regiment.
isosorbide mononitrate 30 mg Tablet Extended Release 24 Hr
30 mg PO DAILY
Discharge Orders:
Discharge Patient (As Directed); Ordered 09/01/24
Ordered By: Abby Seals
Care Plan Goals
Care Plan Goals:
Problem: Readiness for enhanced knowledge related to diagnosis and treatment plan
Goal: Understand your diagnosis and treatment plan needs, including medications if applicable.
Instructions: Know your diagnosis, underlying causes and treatment plan options, including medications if applicable. Consult with your health care team to learn about your diagnosis and treatment plan, including medications if applicable.
Discharge Date and Time
Print Language: MALAY
--- NOTE | 2024-09-01 10:48 | CM ---
Reviewed chart. Met with and Mrs. Garcia to review discharge plans. She states she is feeling well and maybe able to go home soon. She states she ambulates in the hallway and did the stairs. We reviewed a home visit by the Transitional Care
Nurse. She is agreeable to a home visit. Prior to admission she resides with her spouse in a two story home with one step to enter. She has a full flight of steps o get to bedroom. She has a full bathroom on each floor. Prior to admission she was
independent with ambulation and adls. She does not have any DME in the home. She has a prescription plan and uses [facility]. Medical work up in progress. The discharge plan is to return home with her spouse and a home visit by the
Transitional Care Nurse when medically stable.
--- NOTE | 2024-09-01 11:34 | PTCARENOTE ---
RT IJ cordis removed, Hemostasis achieved. Assist x 1 into shower using shower chair. Tolerated well assisted with dressing after. Awaiting spouse for dc instructions
--- NOTE | 2024-09-01 12:36 | W.PN.CARDCBS ---
Today's Communication / Plan
-
Stable cardiology status for discharge
Impression / Plan
-
PCP: Dr. Fran Del Cid
Gas Combustion Engineer: Dr. Liang
Impression:
Presented to ER from outpatient [facility] office with abnormal cardiac cath and back pain 08/17/2024
NSTEMI, peak Troponin 0.243
CAD with MV CAD by cardiac cath at [facility] 06/2024
s/p CABG x3 (EARL to LAD, GSV to RI, GSV to PLB), ELAA w/ 40 mm AtriClip 08/24/2024Ischemic CM EF 30 to 35% by echo 08/18/2024, EF 42% by intraop GLADYS
Post op junctional rhythm, appears to be improving
Post op PAF with RVR
Pulmonary nodule s/p bronchoscopy and biopsy was reportedly negative pathology for malignancy 06/2024
Patient reports that pathology report recommended repeat biopsy for monitoringHTN
Hyperlipidemia
PAD s/p RLE SAP BI DEVELOPER and stent
Former smoker
Echo 08/18/2024: EF 30 to 35%, mid anteroseptal, mid septal, mid inferior and apical akinesis, stage I diastolic
Intraop GLADYS 08/24/24: EF 42%, mid to apical anterior/anteroseptal/septal hypokinesis, mid to apical inferior hypokinesis, mild cLVH, stage 1 diastolic dysfunction, mild MR, mod sessile atheroma in descending aorta, mild sessile atheroma in distal arch
ECHO 08/26/24: EF 45 to 50%, akinesis of mid to apical septum, apex, apical anterior sun, no significant effusion noted
Plan:
Stable cardiology status for discharge
Discussed with CT surgery
Follow-up arranged
Remains AV paced
Continue amiodarone and Eliquis
HPI: Patient was seen as a new patient at [facility] office on 08/17/2024 due to history of abnormal cardiac cath and was referred to ER and is now admitted with consultation to cardiology. Patient used to work at [facility]. She had a shoulder injury
prompting an x-ray that showed a pulmonary nodule. 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 Patient reports that the pathology was negative for malignancy, but
that in either the bronchoscopy report or the pathology report it was recommended that she have a repeat bronchoscopy and biopsy in about 6 months. Patient reports that as part of the workup for bronchoscopy she had an ECG that was abnormal and had
cardiac cath performed by Dr. Yves Lund at [facility]. Patient recalls being told that her cardiac cath was abnormal and that the plan was for her to complete her bronchoscopy and biopsy and following that she would have an intervention so as to not
interrupt DAPT. Patient says that it has been 1 month since her bronchoscopy and so she followed up with her PCP who arranged for her to see a nuclear medicine specialist at another [facility] which was performed yesterday. Cardiac cath films were reviewed by
cardiology at the [facility] office and felt to be abnormal. Patient has possible angina symptoms of upper back tightness and has been having the symptoms at rest. Patient was then referred to ER. Serial troponin in the ER was elevated, peak thus far
0.155. Patient denies any chest or back pain at this time.
Progress Note - Gas Combustion Engineer
Subjective
Date of Service: September 01, 2024
No chest pain or shortness of breath
Objective
Labs:
08/31/24 02:30
09/01/24 04:54
Labs
Hgb 10.0 g/dL (12.0-16.0) L 08/31/24 02:30
Hct 28.7 % (37.0-47.0) L 08/31/24 02:30
Plt Count 212 10^3/uL (130-400) 08/31/24 02:30
PT 19.6 Sec (11.4-14.6) H 08/28/24 03:21
INR 1.60 08/28/24 03:21
APTT 24.5 Sec (23.4-35.0) 08/24/24 19:36
Sodium 127 mmol/L (135-145) L 09/01/24 04:54
Potassium 3.9 mmol/L (3.5-5.1) 09/01/24 04:54
BUN 12 mg/dl (7-17) 09/01/24 04:54
Creatinine 0.5 mg/dL (0.6-1.0) L 09/01/24 04:54
Glucose 123 mg/dl (70-99) H 09/01/24 04:54
Vital Signs and I&O:
Vital Signs
Temp Pulse Resp BP Pulse Ox
98.7 F 70 16 115/65 97
09/01/24 11:30 09/01/24 11:07 09/01/24 11:30 09/01/24 11:42 09/01/24 11:30
Vital Signs
Temp Pulse Resp BP Pulse Ox
98.7 F 70 16 115/65 97
09/01/24 11:30 09/01/24 11:07 09/01/24 11:30 09/01/24 11:42 09/01/24 11:30
Intake & Output
08/30/24 08/31/24 09/01/24 09/02/24
06:59 06:59 06:59 06:59
Intake Total 459.9 / 459.9 133.6 / 133.6 370 / 370
Output Total 1030 / 1030 700 / 700 900 / 900
Balance -1030 / -1030 -240.1 / -240.1 -766.4 / -766.4 370 / 370
Physical Exam
Physical Exam
General: Well developed, well nourished in NAD.
Neck: Supple, no JVD, HJR, carotids +2 B/L, no bruits bilaterally.
Heart: Non displaced PMI, RRR, no murmurs, No S3, S4, no rubs.
Lungs: Scattered rhonchi
Sternal dressings noted
Extremities: No clubbing, cyanosis or edema bilaterally.
Neuro: Grossly nonfocal, awake, alert and oriented x3.
--- NOTE | 2024-09-01 12:38 | PTCARENOTE ---
Discharge instructions reviewed with patient and spouse, questions answered. Wheeled to car by RN
== END 2024-09-01 12:40 | disposition home or self-care (01) | DRG 233 ==
LOC: CVICU 19:08
PROVIDERS: Anesthesiology; Clinical Nurse Specialist Acute Care; General Practice; Internal Medicine Cardiovascular Disease; Nurse Practitioner; Physician Assistant Medical; ADMITTING PHYSICIAN Internal Medicine; ATTENDING PHYSICIAN Thoracic Surgery (Cardiothoracic Vascular Surgery); CONSULT PHYSICIAN Internal Medicine Cardiovascular Disease; CONSULT PHYSICIAN Internal Medicine Critical Care Medicine; CONSULT PHYSICIAN Thoracic Surgery (Cardiothoracic Vascular Surgery); EMERGENCY PHYSICIAN Emergency Medicine; FAMILY PHYSICIAN Family Medicine
PROC: 06BP4ZZ Excision of Right Saphenous Vein, Percutaneous Endoscopic Approach (ICD-10-PCS; 2024-08-24)
PROC: 02L70CK Occlusion of Left Atrial Appendage with Extraluminal Device, Open Approach (ICD-10-PCS; 2024-08-24)
PROC: B24BZZ4 Ultrasonography of Heart with Aorta, Transesophageal (ICD-10-PCS; 2024-08-24)
PROC: 5A1221Z Performance of Cardiac Output, Continuous (ICD-10-PCS; 2024-08-24)
PROC: 021109W Bypass Coronary Artery, Two Arteries from Aorta with Autologous Venous Tissue, Open Approach (ICD-10-PCS; 2024-08-24)
PROC: 30233N1 Transfusion of Nonautologous Red Blood Cells into Peripheral Vein, Percutaneous Approach (ICD-10-PCS; 2024-08-24)
PROC: 02100ZC Bypass Coronary Artery, One Artery from Thoracic Artery, Open Approach (ICD-10-PCS; 2024-08-24)
PROC: 02H63KZ Insertion of Defibrillator Lead into Right Atrium, Percutaneous Approach (ICD-10-PCS; 2024-08-27)
PROC: 02HK3KZ Insertion of Defibrillator Lead into Right Ventricle, Percutaneous Approach (ICD-10-PCS; 2024-08-27)
PROC: 4A023N6 Measurement of Cardiac Sampling and Pressure, Right Heart, Percutaneous Approach (ICD-10-PCS; 2024-08-27)
PROC: 0JH608Z Insertion of Defibrillator Generator into Chest Subcutaneous Tissue and Fascia, Open Approach (ICD-10-PCS; 2024-08-27)
DX: I21.4 Non-ST elevation (NSTEMI) myocardial infarction (principal); I49.01 Ventricular fibrillation; J96.02 Acute respiratory failure with hypercapnia; T81.11XA Postprocedural cardiogenic shock, initial encounter; I50.23 Acute on chronic systolic (congestive) heart failure; D62 Acute posthemorrhagic anemia; E87.1 Hypo-osmolality and hyponatremia; N17.9 Acute kidney failure, unspecified; I97.121 Postprocedural cardiac arrest following other surgery; I97.190 Other postprocedural cardiac functional disturbances following cardiac surgery; I47.21 Torsades de pointes; E87.4 Mixed disorder of acid-base balance; Z68.1 Body mass index [BMI] 19.9 or less, adult; J98.11 Atelectasis; I48.0 Paroxysmal atrial fibrillation; I49.5 Sick sinus syndrome; N99.0 Postprocedural (acute) (chronic) kidney failure; Y83.2 Surgical operation with anastomosis, bypass or graft as the cause of abnormal reaction of the patient, or of later complication, without mention of misadventure at the time of the procedure; I25.10 Atherosclerotic heart disease of native coronary artery without angina pectoris; I11.0 Hypertensive heart disease with heart failure; I73.9 Peripheral vascular disease, unspecified; I25.5 Ischemic cardiomyopathy; R74.01 Elevation of levels of liver transaminase levels; R91.1 Solitary pulmonary nodule; J43.8 Other emphysema; E86.1 Hypovolemia; I65.22 Occlusion and stenosis of left carotid artery; R63.6 Underweight; E78.00 Pure hypercholesterolemia, unspecified; Z79.02 Long term (current) use of antithrombotics/antiplatelets; Z79.82 Long term (current) use of aspirin; Z79.899 Other long term (current) drug therapy; Z82.49 Family history of ischemic heart disease and other diseases of the circulatory system; Z87.891 Personal history of nicotine dependence; Z95.820 Peripheral vascular angioplasty status with implants and grafts
CPT/HCPCS: 93308; 94727; 94729; 33249; 71045; 71046; 71250; 80048; 80053; 80061; 81003; 81015; 82248; 82330; 82565; 82607; 82805; 82810; 82947; 82962; 83036; 83605; 83735; 83880; 84132; 84302; 84443; 84484; 84520; 85014; 85018; 85025; 85027; 85049; 85576; 85610; 85730; 86803; 86850; 86900; 86901; 86920; 87086; 93005; 93306; 93312; 93320; 93321; 93325; 93451; 93880; 94002; 94003; 94010; 96365; 96366; 99285; C1721; C1777; C1892; C1898; P9016; P9040; P9045; P9047; Q9967

== ENCOUNTER → 2024-10-14 14:35 | Outpatient (REF) | payer MEDICARE, OTHER, SELFPAY | LOC: RAD 14:35 | PROVIDERS: ATTENDING PHYSICIAN Nurse Practitioner Adult Health; FAMILY PHYSICIAN Family Medicine; REFERRING PHYSICIAN Internal Medicine Interventional Cardiology | DX: R91.1 Solitary pulmonary nodule (principal) | CPT/HCPCS: 71250 ==

== ENCOUNTER → 2025-01-05 07:10 | Outpatient (REF) | payer MEDICARE, OTHER, SELFPAY | LOC: RAD 07:10 | PROVIDERS: ATTENDING PHYSICIAN Surgery Vascular Surgery; FAMILY PHYSICIAN Family Medicine | DX: I65.23 Occlusion and stenosis of bilateral carotid arteries (principal); I73.9 Peripheral vascular disease, unspecified | CPT/HCPCS: 93880; 93922; 93925 ==

== ENCOUNTER → 2025-03-23 10:24 | Outpatient (REF) | payer MEDICARE, OTHER, SELFPAY | LOC: RAD 10:24 | PROVIDERS: ATTENDING PHYSICIAN Registered Nurse; FAMILY PHYSICIAN Family Medicine | DX: I73.9 Peripheral vascular disease, unspecified (principal); I65.23 Occlusion and stenosis of bilateral carotid arteries | CPT/HCPCS: 75635; Q9967 ==

== ENCOUNTER → 2025-04-05 15:09 | Outpatient (REF) | payer MEDICARE, OTHER, SELFPAY | LOC: RAD 15:09 | PROVIDERS: ATTENDING PHYSICIAN Internal Medicine; FAMILY PHYSICIAN Family Medicine | DX: R91.1 Solitary pulmonary nodule (principal) | CPT/HCPCS: 71250 ==

== ENCOUNTER 2025-04-07 06:09 | Day surgery (SDC) | payer MEDICARE, OTHER, SELFPAY ==
[2025-04-07] VITALS (15 sets, daily range): BP systolic 97–155; BP diastolic 45–95
[2025-04-07 07:00] LABS: INR 1.03; PT 13.8 Sec (11.4-14.6)
--- NOTE | 2025-04-07 07:00 | W.SUR.PREOP ---
Pre-Operative Surgical Note
-
I have examined this patient prior to the performance of the scheduled procedure.
The patient's condition is unchanged from the time of the current History and
Physical and the patient is able to undergo the scheduled procedure.
[2025-04-07 07:01] LABS: APTT 28.5 Sec (23.4-35.0)
[2025-04-07 07:03] LABS: Hematocrit 37.3 % (37.0-47.0); Hemoglobin 12.4 g/dL (12.0-16.0); Mean Corp Hgb Conc. 33.2 g/dL (33.0-37.0); Mean Corpuscular Volume 98.4 fL (81.0-99.0); Platelet Count 231 10^3/uL (130-400); Red Cell Dist. Width 13.9 % (11.5-14.5)
[2025-04-07 07:54] LABS: Blood Urea Nitrogen 12 mg/dl (7-17); Calcium 9.6 mg/dl (8.4-10.2); Carbon Dioxide 29 mmol/L (22-30); Chloride 99 mmol/L (98-107); Estimated Creatinine Clearance 59 ml/min; Glucose 85 mg/dl (70-99); Potassium 4.4 mmol/L (3.5-5.1); Sodium 132 mmol/L (135-145); eGFR > 60.00
--- NOTE | 2025-04-07 08:26 | W.SUR.POST ---
Surgical Immediate Post Op
Note
Pre Op Diagnosis: Peripheral arterial disease, claudication
Post Op Diagnosis: Peripheral arterial disease, claudication
Procedure Performed: Left lower extremity angiogram, diagnostic
Primary Surgeon: Fernando Conteh M.D.
Secondary Surgeons: N/A
Anesthesia: MAC
Estimated Blood Loss: 2 mL
Fluids: See anesthesia flowsheet
Drains/Shunts: N/A
Specimens/Cultures: None
Doppler/Duplex/Angio (Y/N): Y
Complications: None
Operative Findings: Left SFA occlusion not amenable to endo repair
--- NOTE | 2025-04-07 09:11 | OR.RPT ---
Operative Report
Operative Report
PROCEDURE DATE: 04/07/2025
Preoperative diagnosis:
1. Debilitating claudication left lower extremity.
2. Possible early critical limb ischemia findings with elevation pallor.
Postoperative diagnosis: Same
Procedure:
1. Duplex assisted cannulation of right common femoral artery.
2. Peritoneum and pelvic angiogram.
3. Left lower extremity arteriogram.
4. Right femoral angiogram with Perclose percutaneous suture closure.
5. Supervision and interpretation.
Surgeon: Wero
Echocardiography Radiology Technologist: None
Complications: None
Anesthesia: Local, sedation
Fluoroscopy:
17.6 min
37 mGy
6.38 gy.cm2
Indications for procedure:
Severe left calf claudication with physical exam findings of possible early critical limb ischemia with mild dependent rubor but elevation pallor present, and noted numbness in her foot.
Description of procedure:
Patient was identified, brought to the operating room. Placed on the table in the supine position. After the adequate administration of anesthesia, the patient was prepped and draped in the standard surgical fashion. A standard preoperative
timeout was undertaken and everybody was in agreement with the plan.
The right common femoral artery was accessed with a micropuncture kit under direct duplex ultrasound guidance. A 5 Austrian sheath was then advanced over a 0.035 inch wire, and a sanon's hook catheter was advanced into the abdominal aorta.
Aortogram and pelvic angiogram was obtained. Findings as follows:
Infrarenal aorta and bilateral common and external iliac arteries were patent. Left external iliac artery with mild stenosis distally as noted on CT scan. Did not appear to be flow-limiting.
Using a floppy angled hydrophilic wire, the left common femoral artery was cannulated and the catheter was advanced. Left lower extremity arteriogram was obtained. Findings as follows:
Common femoral artery: Patent with no significant stenosis.
Profunda femoris artery: Patent with no significant stenosis.
Superficial femoral artery: Patent for about 4 to 5 cm and then occluded. Well-formed collaterals. Occluded through its entire course.
Popliteal artery: Reconstituted in the proximal above-knee popliteal segment. But there was disease through the above-knee segment. High takeoff of the posterior tibial artery noted behind the knee. Tibial vessels were relatively small.
Tibioperoneal trunk then gave rise to an anterior tibial and peroneal artery. Very small peroneal artery. Both the anterior tibial and posterior tibial arteries ran down to the ankle but were very small vessels with slow flow. Distal
opacification was tough to see.
At this point I cannulated the proximal superficial femoral artery and then exchanged for a 6 Austrian up and over sheath over a Storq wire. Patient was given 4000 units of intravenous heparin. Next, using a flopping of hydrophilic wire and a CXI
catheter under roadmap assisted guidance I tried to traverse the area of occlusion. Was a very tough area of occlusion and my wire seemed to traverse at least partially subintimal he. Distally I just could not gain reentry into the true lumen.
Despite multiple attempts I could not. In addition I did not wish to use any other additional devices given small popliteal artery and high posterior tibial artery takeoff. At this point I felt that there is no further endovascular ideal options.
If warranted, patient would best be served with a superficial femoral artery to tibioperoneal trunk bypass with vein conduit. At this point I withdrew my sheath back to the right external iliac artery over a Storq wire. Right femoral angiogram
demonstrated good puncture in the right common femoral artery. Lower right femoral angiogram demonstrated patency of the existing stent. There is a mild to moderate stenosis at the proximal margin or just proximal to the stent. Otherwise no
significant stenosis noted. At this point an Oncimmune percutaneous Perclose suture device was used to close the common femoral artery. Manual pressure was also gently applied. The patient tolerated procedure well. She did have a maintained
palpable right DP upon completion.
[2025-04-07] MEDS: NSS 500 IV (10:09)
[2025-04-07] MEDS: NSS 1000 IV (11:32)
== END 2025-04-07 12:08 | disposition home or self-care (01) ==
LOC: CATH 06:09
PROVIDERS: ATTENDING PHYSICIAN Surgery Vascular Surgery; OTHER PHYSICIAN Internal Medicine Interventional Cardiology; PRIMARYCARE PHYSICIAN Family Medicine
DX: I70.212 Atherosclerosis of native arteries of extremities with intermittent claudication, left leg (principal); I10 Essential (primary) hypertension; Z86.74 Personal history of sudden cardiac arrest; Z79.82 Long term (current) use of aspirin
CPT/HCPCS: 36247; 75710; 75625; 36246; 80048; 85027; 85610; 85730; 86850; 86900; 86901; C1760; C1769; C1887; C1894; Q9967

== ENCOUNTER → 2025-04-28 08:14 | Outpatient (REF) | payer MEDICARE, OTHER, SELFPAY | LOC: DHVS 08:14 | PROVIDERS: ATTENDING PHYSICIAN Surgery Vascular Surgery; FAMILY PHYSICIAN Family Medicine | DX: I73.9 Peripheral vascular disease, unspecified (principal); M79.605 Pain in left leg | CPT/HCPCS: 93970 ==